=== PATIENT | female | born 1955 | race Caucasian/White ===

== ENCOUNTER 2018-07-09 11:26 | Emergency (ER) | payer BC, OTHER ==
[~2018-07-09] VITALS: Ht 167.6 cm; Wt 90.7 kg
[2018-07-09 12:18] LABS: ABSOLUTE NEUTROPHILS 8.9 thou/uL (1.4-8.2); BASOPHILS 0.9 % (0.0-2.0); EOSINOPHILS 1.1 % (0.0-3.0); HEMATOCRIT 43.6 % (37.0-47.0); HEMOGLOBIN 14.8 gm/dL (12.0-15.0); LYMPHOCYTES 13.3 % (24.0-44.0); MCH 31.4 pg (26.0-34.0); MCHC 33.8 g/dL (28.0-37.0); MCV 92.8 fL (80.0-100.0); MONOCYTES 6.4 % (1.0-8.0); PLATELET COUNT 452 thou/uL (150-400); POLYS 78.3 % (36.0-66.0); RDW 15.3 % (10.5-14.5); WBC 11.4 thou/uL (4.0-11.0)
[2018-07-09 12:24] LABS: CALCIUM 9.3 mg/dL (8.5-10.1); CREATININE 0.8 mg/dL (0.6-1.0); POTASSIUM 4.3 mmol/L (3.5-5.1)
[2018-07-09 12:29] LABS: ALBUMIN 3.7 g/dL (3.4-5.0); TOTAL BILIRUBIN 0.3 mg/dL (<0.1-1.0); TOTAL PROTEIN 7.7 g/dL (6.4-8.2)
[2018-07-09] MEDS ORDERED: CLEOCIN HCL150 MG PO (13:46)
[2018-07-09] MEDS ORDERED: HYDROCODONE-AP1 EAC6 PO (13:48)
[2018-07-09] MEDS ORDERED: NEURONTIN 300300 M1 PO (13:48)
[2018-07-09 14:46] VITALS: BP 195/81
== END 2018-07-09 14:43 | disposition home or self-care (01) ==
LOC: ER 11:26
PROVIDERS: Physician Assistant
DX: T81.49XA Infection following a procedure, other surgical site, initial encounter (principal); L03.115 Cellulitis of right lower limb; F17.210 Nicotine dependence, cigarettes, uncomplicated; Y84.8 Other medical procedures as the cause of abnormal reaction of the patient, or of later complication, without mention of misadventure at the time of the procedure; Y92.89 Other specified places as the place of occurrence of the external cause

== ENCOUNTER 2018-07-10 08:30 | Inpatient (IN) | payer BC, OTHER ==
[~2018-07-10] VITALS: Ht 167.6 cm; Wt 90.7 kg
[2018-07-10] VITALS (9 sets, daily range): BP systolic 148–193; BP diastolic 69–94
--- NOTE | ~2018-07-10 | HC ---
[facility] [place] [address] CONSULTATION Name: ROSANA NAVARRO Room #: 450-P ADM IN M.R.#: [id number] Admission: 07/10/18 ������������������ Attend Phys: Kiet Pearce MD Discharge: ������������������ Date of : 53 Report #: [id number] THIS REPORT FOR: //name// CC: [facility] physician/PCP Kiet Pearce DATE OF SERVICE: 07/12/2018 HISTORY OF PRESENT ILLNESS: The patient is a 62-year-old white female with history of nonhealing right first through fourth toe ulcers. She has peripheral arterial disease. She had a right tibioperoneal trunk thrombectomy with drug-eluting stent. She is having problems with 10/10 pain. She has tried Neurontin without benefit, so Lyrica has been added. She is being monitored regarding a groin hematoma. Wound care is seeing her. She is noted to have ulcers of the toes of the right foot with consideration for surgical debridement. We are seeing her in rehabilitation medicine consultation. PAST MEDICAL HISTORY: Includes gangrenous wound with right toes and foot, tobacco abuse, lifelong tobacco smoker per report, 40 pack years, one-half pack per day. No history of alcohol abuse. She has a history of hypertension. MEDICATIONS: Please see the full medication listing, this includes vitamins, herbals, and supplements per report. ALLERGIES: No known drug allergies. HABITS: Please see the above. SOCIAL HISTORY: She lives alone. House, ranch style, no steps. Family friend is involved. She has been using a wheelchair and a ramp and has been nonambulatory for the past 4 weeks, but was independent with transfers. REVIEW OF SYSTEMS: She has severe right foot pain. No complaints of chest pain, shortness of breath, or abdominal discomfort. PHYSICAL EXAMINATION: GENERAL: The patient is a 62-year-old, overweight, white female, in no obvious distress. She is alert. VITAL SIGNS: Last recorded temperature 97.2, pulse 81, respirations 18, blood pressure 115/59. HEENT: Appeared to be benign. NEUROMUSCULOSKELETAL: Cranial nerves grossly intact. Facies are symmetric. Functional range of motion of both upper extremities with strength grade 4/5. DTRs are trace to 1. Left lower extremity with no focal calf swelling, functional range of motion, strength is grade 4+/5, DTRs are trace to 1. Right lower extremity, the right foot is dressed. She has pain with attempted [facility] [address] [address] CONSULTATION Name: ROSANA NAVARRO Room #: 450-P [facility] IN .R.#: [id number] Admission: 07/10/18 ������������������ Attend Phys: Kiet Pearce MD Discharge: ������������������ Date of : 53 Report #: [id number] movement of the right lower extremity. She has been mod assist with sit to stand transfers. Gait was 3 feet min assist with a front-wheeled walker. ASSESSMENT: A 62-year-old white female with following problems: 1. Nonhealing right first through fourth toe ulcers, status post right tibioperoneal thrombectomy with drug-eluting stent. She has severe peripheral arterial disease. 2. Functional mobility and ADL deficits. 3. Significant pain with peripheral arterial disease. 4. Tobacco abuse. PLAN: There is consideration for surgical debridement as noted. I am uncertain regarding the timing of this. Insurance will need to be checked regarding rehab therapy options. We will be glad to follow along with you regarding her rehab therapy needs. ��������������������������������������������� ���������������������������������������� By: ��������������������������������������������� [id number] Deion Fairbanks MD /nt
[~2018-07-10 08:30] MED LIST: CLEOCIN HCL150 MG PO; HYDROCODONE-AP1 EAC6 PO; NEURONTIN 300300 M1 PO
--- NOTE | 2018-07-10 21:14 | NUR ---
Admitted on the floor at 1800. Patient came in from CV and IR. Admission history, education and assessment done- pt mentioned she had MRSA hr at April 2018- night nurse informed. With right foot ulcer- photo taken, wound nurse consult put in. With hematoma at Left groin- shown to night staff, no bleeding or drainage noted. Pt maintained on bed rest for 6 hours as reported. Pt with Thrombin topical prescribed which was not included in report given by IR staff- senior staff called up pharmacy and asked about medication, as per pharmacy staff medication already given at previous unit. Patient kept comfortable. Patient belongings at bedside, visited by relative.
[2018-07-11] VITALS: BP 171/72
--- NOTE | 2018-07-11 03:34 | NUR ---
CARE ASSUMED AT 1900, PATIENT WAS ON SPINE POSITION UNTIL AROUND 10PM.PATIENT HAS LLE HEMATOMA. PAIN CONTROLLED THIS SHIFT. PATIENT HAS SEVERAL WOUNDS ON RIGHT FOOT, CLEANSED WITH NS AND COVER WITH KEFLIX. PATIENT HAS BEEN HAVING HIGH BLOOD PRESSURE CLONIDINE GIVEN PER ORDER. PULSES CHECK Q 3,PULSES PRESENT ON LLE. PATIENT HAD PAIN MEDS X3. PATIENT ASLEEP NO S/S OF PAIN OR DISCOMFORT. GROIN SITE DRESSING IS C/D/I. PATIENT IN BED ASLEEP AT THIS TIME BREATHING REGULAR AND UNLABOURED.
[2018-07-11 03:40] VITALS: BP 122/58; BP 170/73
[2018-07-11 05:58] VITALS: BP 132/62
[2018-07-11 06:59] LABS: ABSOLUTE NEUTROPHILS 11.1 thou/uL (1.4-8.2); BASOPHILS 0.4 % (0.0-2.0); EOSINOPHILS 0.9 % (0.0-3.0); HEMATOCRIT 37.6 % (37.0-47.0); MCH 30.8 pg (26.0-34.0); MCHC 33.5 g/dL (28.0-37.0); MCV 92.2 fL (80.0-100.0); MONOCYTES 6.7 % (1.0-8.0); PLATELET COUNT 418 thou/uL (150-400); RBC 4.08 mil/uL (4.20-5.00); RDW 15.4 % (10.5-14.5); WBC 13.5 thou/uL (4.0-11.0)
[2018-07-11 07:08] LABS: APTT 30.3 Seconds (24.5-32.8); PROTIME 10.8 Seconds (9.3-11.4)
[2018-07-11 07:09] LABS: ALBUMIN 3.1 g/dL (3.4-5.0); CALCIUM 8.8 mg/dL (8.5-10.1); CREATININE 0.7 mg/dL (0.6-1.0); MAGNESIUM 1.8 mg/dL (1.8-2.4); POTASSIUM 3.9 mmol/L (3.5-5.1); TOTAL BILIRUBIN 0.7 mg/dL (<0.1-1.0); TOTAL PROTEIN 6.4 g/dL (6.4-8.2)
[2018-07-11 07:13] LABS: HEMOGLOBIN 12.6 gm/dL (12.0-15.0)
[2018-07-11 07:33] VITALS: BP 138/72
--- NOTE | 2018-07-11 12:51 | NUR ---
Assess due to notification of wound. Pt with vascular wounds to toes and also hematoma to left extremity. +tobacco use. Meds reviewed. Obesity with BMI 33. Has heart healthy diet order. Pt was not in room at time of visit. Will followup again in 1-2 days to further assess.
--- NOTE | 2018-07-11 12:59 | NUR ---
WOUND CARE CONSULT; ROUNDING WITH DR AUSTIN AND OLAF DANCE ENTERTAINER TODAY. RIGHT FOOT AND TOES JOSHUA S/S OF ISCHEMIA.PAINFUL, PALE,DUSKY DRAINING, DENUDED TISSUE. STUDIES TO LOOK FOR OSTEOMYLITIS IS ORDERED. PATIENT AND FAMILY ARE WORRIED AND EMOTIONA. RECOMMENDATIONS; DAKINS SOAKED GAUZE, SECURE WITH KERLIX DAILY/PRN. DISCUSSED WITH RN
--- NOTE | 2018-07-11 14:13 | NUR ---
PT ADMITTED RELATED TO NON-HEALING WOUNDS RT TOES. CM REVIEWED CHART AND SPOKE WITH CARE TEAM. CM MET WITH PT AND FRIEND AT BEDSIDE. PT IS A&O X4. CM ROLE INTRODUCED. PT INDICATED SHE LIVES ALONE IN A HOUSE WITH A RAMP TO ENTER AND NO STEPS INSIDE. PT INDICATED SHE HAD BEEN USING A WHEELCHAIR AND CRUTCHES TO ASSIST WITH MOBILITY MANAGER STRATEGY & ACCOUNT. SHE INDICATED NO HH HX. PT ALSO INDICATED NO PCP. CM TO PROVIDE SAFTEY NET CLINIC PACKET AND LIST OF PCPS AT [facility]. CM PROVIDED INFO ON 5N AND SKILLED REHAB IN THE EVENT POST ACUTE CARE STAY IS RECOMMENDED. CM TO FOLLOW INDICATED WITH DC PLANNING.
[2018-07-11 14:27] VITALS: BP 130/68
--- NOTE | 2018-07-11 16:02 | NUR ---
Received awake on bed. Due medications given as prescribed. Pt had MRI of R foot, Left groin ultrasound. Assisted in ADLs. Pt seen by wound nurse today, wound dressing at right foot changed. Complained of nausea, medication given as prescribed. Injection site checked, dry, intact, no further enlargement on size. Constantly complained of pain, medication given as prescribed with partial pain relief.
[2018-07-11 18:58] VITALS: BP 150/69
--- NOTE | 2018-07-11 23:26 | NUR ---
Assumed care at 1845. Pt resting in bed. AOX4. VSS. Ulcer right to foot. Dressed with darkins soaked gauze and secured with Kerlix. Dressing changes Daily/PRN. Pt denies nausea. No changes on site of hematoma. No identified needs at the moment. Will continue to monitor.
[2018-07-12 05:53] LABS: HEMATOCRIT 37.6 % (37.0-47.0); HEMOGLOBIN 12.5 gm/dL (12.0-15.0); MCH 31.4 pg (26.0-34.0); MCHC 33.4 g/dL (28.0-37.0); MCV 94.1 fL (80.0-100.0); RBC 3.99 mil/uL (4.20-5.00); RDW 15.5 % (10.5-14.5); WBC 12.6 thou/uL (4.0-11.0)
[2018-07-12 06:09] LABS: ALBUMIN 3.1 g/dL (3.4-5.0); CREATININE 1.1 mg/dL (0.6-1.0); MAGNESIUM 2.1 mg/dL (1.8-2.4); POTASSIUM 4.7 mmol/L (3.5-5.1); TOTAL BILIRUBIN 0.4 mg/dL (<0.1-1.0); TOTAL PROTEIN 6.9 g/dL (6.4-8.2)
--- NOTE | 2018-07-12 08:00 | NUR ---
PT STATED SHE HAS PAIN TO RT FOOT OF 6 ON 1-10 SCALE. PT STATED THAT THE PAIN FEELS LIKE A PRESSURE. PT UP IN CHAIR. PT HAS DRESSING TO RT FOOT THAT IS DRY AND INTACT. PT HAS EXP WHEEZE TO RLL AND LLL, DENIES ANY COUGH.
[2018-07-12 08:03] VITALS: BP 115/59
--- NOTE | 2018-07-12 08:32 | NUR ---
ADM HYDROCODONE 5MG PO FOR PAIN TO RT FOOT OF 6 ON 1-10 SCALE. PT ALSO ASKING FOR IV PAIN MED.
--- NOTE | 2018-07-12 10:07 | NUR ---
PT RECIEVED MORPHINE 2MG IV FOR PAIN TO RT FOOT.
--- NOTE | 2018-07-12 10:23 | NUR ---
Followup: eating very well, especially high protein food sources. Low nutrition risk
--- NOTE | 2018-07-12 10:55 | NUR ---
CHANGING DRESSING TO RT FOOT AFTER SOAK BUSTER DANIEL. PT STATED PAIN IS WORSE WITH DRESSING CHANGE AND OPEN TO AIR. REWRAPPED WITH TELFA, KERLEX, AND SECURED WITH TAPE. PT HAS FRIEND VISITING AT BEDSIDE.
--- NOTE | 2018-07-12 14:42 | NUR ---
ADM HYDROCODONE 5MG ONE TAB PO FOR PAIN TO RT FOOT OF 8 ON 1-10 SCALE. PT PURSE BREATHING AND SHAKING.
--- NOTE | 2018-07-12 14:51 | NUR ---
ADM MORPHINE 2MG IV FOR PAIN TO RT FOOT.
[2018-07-12 14:55] VITALS: BP 119/84
--- NOTE | 2018-07-12 14:55 | NUR ---
WOUND CARE FOLLOW UP; ROUNDING WITH DR AUSTIN AND OLAF ENERGY PROJECT ENGINEER. RIGHT FOOT ALL TOES CONTINUE TO BE MORE PAINFUL, SLOUGH AND NECROSIS PRESENT. MODERATE DRAINAGE. RECOMMENDATION; CONTINUE DAKINS ORDERED. DISCUSSED WITH RN
--- NOTE | 2018-07-12 15:08 | NUR ---
CARE TEAM TO VISIT WITH PT REGARDING POSSIBLE SURGICAL DEBRIDEMENT. PT INDICATED THAT PT WOULD BENEFIT FROM FWW FOR USE UPON DC. CM NOTIFIED PROVIDER PLUS LIAISON. CM TO FOLLOW INDIATED WITH DC PLANNING.
[2018-07-12 19:20] VITALS: BP 138/61
--- NOTE | 2018-07-12 19:49 | NUR ---
PT STILL SITTTING UP IN CHAIR. ADM MORPHINE 2MG IV FOR PAIN TO RT FOOT.
--- NOTE | 2018-07-13 04:36 | NUR ---
ASSUMED CARE OF PT AT 1900HRS. PT IS AOX4 AND CALLS FOR HELP NEEDED. PT SENT ENTIRE SHIFT ON THE RECLINER IT HELP WITH PAIN. PT REFUSED BLE TO BE ELEVATED DUE TO PAIN. PAIN WAS MANAGED WITH REST AND MEDICATION. NO OTHER S/S OF ACUTE DISTRESS. WILL CONTINUE TO MONITOR.
[2018-07-13 09:39] VITALS: BP 105/48
--- NOTE | 2018-07-13 12:21 | HC ---
[facility] [place] [address] [place] [address] CONSULTATION Name: ROSANA NAVARRO Room #: 450-P ADM IN M.R.#: [id number] Admission: 07/10/18 ������������������ Attend Phys: Kiet Pearce MD Discharge: ������������������ Date of : 53 Report #: [id number] THIS REPORT FOR: //name// CC: [facility] physician/PCP Kiet Pearce DATE OF SERVICE: 07/11/2018 CHIEF COMPLAINT: Ischemia to the right foot. HISTORY OF PRESENT ILLNESS: This is a 62-year-old female patient who has been admitted to the hospital following angiography of the lower extremity. She has had an aortogram with runoff yesterday, at which time, right posterior tibial atherectomy were completed. She has had improved flow, but had significant pain in her toes that has persisted and she has been having difficulty with healing of her toes over the last several months. She has been seen by multiple consultants, without specific improvement. PAST MEDICAL HISTORY: The patient's past medical history is positive for history of hypertension, peripheral arterial disease and nonhealing ulcers of the right second through fifth toes. SOCIAL HISTORY: Positive for half pack of cigarette smoking for 40 years. No alcohol use. FAMILY HISTORY: Noncontributory. MEDICATIONS: Include hydrocodone, gabapentin and clindamycin. ALLERGIES: None. REVIEW OF SYSTEMS: CONSTITUTIONAL: The patient denies fever, chills or weight loss. NEUROLOGIC: The patient denies focal weakness, numbness or tingling EYES: The patient denies visual changes, redness or drainage. ENT: The patient denies earache, nasal drainage or sore throat. CARDIOVASCULAR: The patient denies chest pain, palpitations or diaphoresis. PULMONARY: The patient denies cough or shortness of breath. GASTROINTESTINAL: The patient denies nausea, vomiting, diarrhea or abdominal pain. ORTHOPEDIC: The patient complains of severe pain in her right lower extremity, including in particular the toes of the right foot. Other systems in a 14-point review of systems are negative. PHYSICAL EXAMINATION: VITAL SIGNS: At this time include temperature 97.9, pulse 92, respiratory rate [facility] [address] [place] [address] CONSULTATION Name: ROSANA NAVARRO Room #: [facility]- ADM IN M.R.#: [id number] Admission: 07/10/18 ������������������ Attend Phys: Kiet Pearce MD Discharge: ������������������ Date of : 53 Report #: [id number] of 18 and blood pressure 179/86. GENERAL: This is a chronically ill-appearing female patient, who appears to be in no distress. HEENT: Head normocephalic. Nose and throat are clear. NECK: Supple. LUNGS: Clear. HEART: Regular. ABDOMEN: Soft. Bowel sounds present. EXTREMITIES: Lower extremities demonstrate the skin is pink, warm and dry, with the exception of the toes. She has ulcerations on the toes, with moist eschar involving the second through fifth toes. They are very tender to palpation. The eschar is not dry, stable and intact. NEUROLOGIC: The patient is alert, oriented, appropriate and moving all 4 extremities spontaneously. LABORATORY DATA: Includes sodium 139, potassium 3.9, chloride 103, CO2 of 25, BUN 15, creatinine 0.7 and glucose is 100. SGOT is 19. Calcium is 8.8. Total protein 6.4. Albumin 3.1. White blood cell count 12.6 with a hemoglobin of 12.5. Angiography was performed on 07/10/2018, significant for right tibioperoneal trunk atherectomy and drug-eluting stent placement. She has a single right peroneal artery runoff with moderate stenosis of the tibioperoneal trunk that was treated with angioplasty and stent placement with good patency. MRI of the right foot shows no evidence of osteomyelitis. CLINICAL IMPRESSION: 1. Arterial ulceration to second through fifth toes of the right foot, now status post percutaneous intervention with a right tibioperoneal trunk atherectomy and stent placement. 2. History of tobacco use. 3. Mild protein-calorie malnutrition. RECOMMENDATIONS: At this point in time, I have discussed with the patient in detail the need for tobacco cessation given the significant degree of arterial disease that she has. She is motivated, however, thinks it will be difficult to stop smoking. She, I think, would benefit from some debridement of her toes, possibly even with an ultrasonic Misonix type device. She is so tender to palpation at the bedside, I do not feel that I can adequately debride her at the bedside. We will consult Podiatry for consideration of debridement of the toes. It is unclear as to whether she will possess adequate flow for healing. All questions have been answered. I appreciate being asked to see her in consultation. ��������������������������������������������� <ELECTRONICALLY SIGNED> ���������������������������������������� By: Isaac Case MD ��������������������������������������������� 07/13/18 1221 [id number] Isaac Case MD /nt
--- NOTE | 2018-07-13 13:54 | NUR ---
TOWARDS POC PT A/O X4, VSS, AFEBRILE, PAIN MANAGED BY MEDS-SEE MAR. NO CONCERNS VOICED. WILL CONTINUE TO MONITOR.
[2018-07-13 15:09] VITALS: BP 119/61
[2018-07-13 19:22] VITALS: BP 155/60
[2018-07-14 03:25] VITALS: BP 153/73
--- NOTE | 2018-07-14 05:21 | NUR ---
ASSUMED CARE OF PT AT 1900HRS. PT IS AOX4 AND CALLS FOR HELP NEEDED. PT SPENT ENTIRE SHIFT ON THE RECLINER. PT REFUSED TO ELEVATE FEET. PT REPORTED SOME PAIN AND WAS TREATED WITH PRN PAIN MEDS. PT WAS PLACED NPO FROM MIDNIGHT PENDING AN I&D OF FOOT. NO OTHER S/S OF ACUTE DISTRESS. WILL CONTINUE TO MONITOR.
[2018-07-14 07:48] VITALS: BP 146/69
--- NOTE | 2018-07-14 11:33 | NUR ---
Assumed pt care at 7am.Pt up in chair resting and waiting for senior tech manufacturing engineering to pick her up.Assessment completed.vss.bp med given as ordered for preop.At 10am,pt left for surgery per bed.Martha esqueda leak detector here,order noted.Pt will be having aortogram with runoff tomorrow.Will continue to monitor.
[2018-07-14 14:04] VITALS: BP 166/70
--- NOTE | 2018-07-14 14:56 | NUR ---
WOUND CARE FOLLOW UP; ROUNDING WITH DR AUSTIN. DR AUSTIN SPENT A GREAT AMOUNT OF TIME CUNSULTING THIS PATIENT. TODAY IS S/P TOE AMPUTATION SURGERY. SURGICAL DRESSING IN PLACE. RECOMMENDATION; WAITING FOR THE SURGEON FOLLOW UP. DISCUSSED WITH SAROJ
[2018-07-14 20:06] VITALS: BP 135/61
--- NOTE | 2018-07-15 05:20 | NUR ---
ASSUMED CARE OF PT AT 1900HRS. PT IS A0X4 AND CALLS FOR HELP NEEDED. PT HAD I&D DONE PRIOR TO THIS SHIFT. PT REPORTS PAIN OF 10/10 AND WAS VERY UNCOMFORTABLE THIS SHIFT. PRESCRIBED MORPHINE AND NORCO WAS NOT ENOUGH TO GET PT COMFORTABLE. CONSIDER ALTERNATIVE PAIN MEDICATION. PROCEDURE SITE AND DRESSING IS INTACT. WILL CONTINUE TO MONITOR.
[2018-07-15 05:31] VITALS: BP 144/64
[2018-07-15 07:50] VITALS: BP 169/79
[2018-07-15 15:12] VITALS: BP 140/63
[2018-07-15 19:15] VITALS: BP 186/106
--- NOTE | 2018-07-15 19:59 | NUR ---
ASSUMED CARE OF PATIENT AT 0715, PATIENT ALERT AND ORIENTED X 4. PATIENT UP WITH SBA TO BSC, PATIENT NON-WEIGHT BEARING RIGHT FOOT. RIGHT FOOT HAS DRESSING IN PLACE AND IS C/D/I. PATIENT IN ISOLATION FOR MRSA IN NARES. PATIENT HAS HAD LOTS OF PAIN WITH RIGHT FOOT/TOES, DR PATTON NOTIFIED ABOUT PAIN RELIEF, NEW ORDER FOR DILAUDID 1 MG IV X 3, MORPHINE DISCONTINUED. PATIENT ALSO HAS HYDROCODONE 1 TABLET ORDERED, GIVEN X 1 THIS SHIFT. WILL CONTINUE TO MONITOR.
[2018-07-15 21:32] VITALS: BP 138/59
--- NOTE | 2018-07-16 01:47 | NUR ---
Assumed care at 1845. Pt resting in bed. AOX4. VSS. Gave hydralazine onetime for SBP>160. Dressing on none weight bearing right foot CDI. Pt has been using a walker and gait belt to bathroom. Still on isolation for MRSA of the nares. Pt complaining about pain still after being given pain medication. Called VISUAL ASSOCIATE who authorized onetime 2tabs of hydrocodone. Call light within reach. Chair alarm on. No identified needs at the moment. Will continue to monitor.
[2018-07-16 03:50] VITALS: BP 157/75
[2018-07-16 07:29] VITALS: BP 149/67
--- NOTE | 2018-07-16 10:08 | NUR ---
TOWARDS POC PT A/O X4, VSS,AFEBRILE. PAIN MANAGED BY MEDS. WILL CONTINUE TO MONITOR.
[2018-07-16 16:10] VITALS: BP 145/68
[2018-07-16 20:31] VITALS: BP 157/67
[2018-07-17] VITALS (9 sets, daily range): BP systolic 139–179; BP diastolic 53–79
--- NOTE | 2018-07-17 03:28 | NUR ---
ASSUMED CARE OF PT AT 1900HRS. PT AOX4 AND CALLS FOR HELP NEEDED. PT REPORTED SOME PAIN AND WAS TREATED WITH PRESCRIBED PAIN MEDS. PT WAS ABLE TOO GET SOME SLEEP THIS SHIFT. PT WAS NPO SINCE 0000HRS PENDING PROCEDURE IN THE AM. NO OTHER S/S OF ACUTE DISTRESS. WILL CONTINURE TO MONITOR.
[2018-07-17 05:23] LABS: HEMATOCRIT 35.9 % (37.0-47.0); HEMOGLOBIN 11.9 gm/dL (12.0-15.0); MCH 31.4 pg (26.0-34.0); MCHC 33.1 g/dL (28.0-37.0); MCV 94.8 fL (80.0-100.0); RBC 3.79 mil/uL (4.20-5.00); RDW 15.6 % (10.5-14.5); WBC 10.2 thou/uL (4.0-11.0)
[2018-07-17 05:43] LABS: CALCIUM 9.1 mg/dL (8.5-10.1); CREATININE 0.7 mg/dL (0.6-1.0); POTASSIUM 4.6 mmol/L (3.5-5.1); TOTAL BILIRUBIN 0.4 mg/dL (<0.1-1.0)
--- NOTE | 2018-07-17 19:37 | NUR ---
Received awake on bed. On NPO-advised patient, mouth swab given to moisten mouth. Assisted in ADLs, patient able to use walker to bathroom. With Leg dressing at Right leg- dressing dry, clean intact. Pt for OR today, Stent at R femoral artery- consent signed. Pt complained of pain, due PRN pain medication given as prescribed. A+Ox4. With bruising at L hip and thigh- no changes from previous days as handed over. Pt legs kept elevated, non weight bearing on Right leg. Maintained on Isolation- MRSA history. With SL at R FA- patent and intact. Pt fetched by OR Staff at 1130, unable to change foot dressing due to POC. Pt seen by Dr. Pearce, informed that Metoprolol given with minimal sips of H20, Aspirin and Carvedilol not given. Visited by relatives today. Patient came back to white at 1850. Pt had Angiography + stent put in thru R femoral artery under general anesthesia, pressure applied. To have bedrest for 6-8 hours- handed over to night staff, may elevate bed up to 30 degrees, no bending on site- advised pt, staff and CURER ACID DRUM. Site checked- dry, clean and intact. May have sips of water, then if tolerated may advance to regular diet- asked patient if she wanted something to eat and drink when she arrived in the unit, prefers to rest for the meantime; food tray in the room, advised pt to inform staff if she wants it heated and to eat. Pt on O2 at 3lpm via nasal cannula, sats of 98%. With new IV at L FA- patent, intact. Last pain medication given at 183 as handed over- Night staff informed. Initial vital signs taken- BP of 174/79 noted, PRN hydralazine given as prescribed. To monitor v/s, site, peripheral pulses-inital monitoring done upon arrival in unit to monitor every 30 mins for 3 hrs then every 3 hours as per protocol- Night staff informed.
[2018-07-18 01:09] VITALS: BP 151/58
[2018-07-18 03:24] VITALS: BP 142/53
--- NOTE | 2018-07-18 04:51 | NUR ---
Assumed care at 1845. Pt AOX4. VSS. Dressing on right foot and right groin area CDI. Pt rates pain a 10/10. Even after been given pain meds. No sign of hematoma. Pt peripheral pulses present but weak on the right leg. Both legs swollen. Pt insisted on seating on chair with legs not elevated against medical advice. No identified needs at the moment. Call light within reach. Will continue to monitor.
[2018-07-18 07:51] VITALS: BP 130/59
--- NOTE | 2018-07-18 12:06 | PATH ---
[facility] [address] [place] [address] PATHOLOGY RPT PROCEDURE Name: ROSANA NAVARRO Room #: 450-P ADM IN M.R.#: [id number] ������������������ Admission: 07/10/18 ������������������ Date of : 51 Discharge: Report #: [id number] Path Case #: [id number] [facility] Accession Number: [id number] . 01 Material submitted: . foot - RIGHT FOOT. Modifiers: right . 01 Clinical history: . Necrotic right foot . 02 Diagnosis: Skin and subcutaneous tissue, right foot, debridement: - Ulceration gangrenous necrosis and fibrinoid degeneration, consistent with debridement tissue. (IUV/db; 07/17/2018) LBQ/07/17/2018 . 02 Electronically signed: . Ruth Trujillo MD, Pathologist NPI- [id number] . 01 Gross description: . The specimen is received in formalin, labeled "Lupe, Rosana, skin and subcutaneous tissue right foot" and consists of multiple necrotic segments of green-amaral skin/tissue measuring 3.5 x 2.5 x 0.4 cm in aggregate. A passenger service representative portion is submitted in A1. (SDY; 07/14/2018) SYU/SYU . 02 Pathologist provided ICD-10: L97.519 . 02 CPT . 811651 Specimen Comment: A courtesy copy of this report has been sent to Specimen Comment: [phone], . Specimen Comment: Report sent to / DR GUZMAN Performed at: [address], [place], [place] [id number] MD Kris Herron MD Phone: [phone] Performed at: [address] [id number] MD Ruth Trujillo MD Phone: [phone]
[2018-07-18] MEDS ORDERED: LYRICA 50 MG50 MG PO (13:04)
[2018-07-18] MEDS ORDERED: ASA5UEC PO (13:04)
[2018-07-18] MEDS ORDERED: METOPROLOL SUCC25 M1 PO (13:04)
[2018-07-18] MEDS ORDERED: AUGMENTIN 875-1 EACH PO (13:04)
[2018-07-18] MEDS ORDERED: ACETAMINOPHEN325 M1 PO (13:04)
[2018-07-18] MEDS ORDERED: CLOPIDOGREL75 MG PO (13:04)
[2018-07-18] MEDS ORDERED: HYDROCODON-ACE1 EAC7 PO (13:04)
[2018-07-18 13:46] VITALS: BP 130/59
--- NOTE | 2018-07-18 13:52 | NUR ---
PT CONSULTED REGARDING MOBILITY STATUS WITH ANTICIPATED D/C TO HOME SOON. PT PROVIDED BY ARMATURE WINDER REPAIR WITH FWW AND ABLE TO PERFORM TXS FROM NORMAL HEIGHT SURFACES AND SHORT DISTANCE AMB W/FWW AT SBA LEVEL, MAINTAINING NWB RLE. PT WOULD BENEFIT FROM HOME HEALTH THERAPY SAFETY ASSESSMENT AND R LE STRETCHING/STRENGTHENING.
--- NOTE | 2018-07-18 14:16 | NUR ---
WOUND CARE FOLLOW UP; ROUNDING WITH DR AUSTIN AND OLAF RENAL DIALYSIS TECHNICIAN. PT TO D/C TODAY. WITH AQUACEL AG BETWEEN THE TOES, AND,KERLIX AND SECURE WITH EVANGELINA DAILY/PRN DISCUSSED WITH RN
[2018-07-18 14:32] VITALS: BP 130/59
--- NOTE | 2018-07-18 15:36 | NUR ---
CARE TEAM INDIATED THAT PT IS MEDICALLY STABLE TO DC TO SNF THIS DAY. CM FOLLOWED UP WITH PT SNF LIST HAVE BEEN PROVIDED PREVIOUSLY TO INQUIRE TO WHICH FACILITIES SHE WAS INTERESTED IN. PT INDICATED THAT SHE DIDNT' WANT TO GO SKILLED THAT SHE WANTED TO GO HOME. CM INDICATED THAT CARE TEAM WAS RECOMMENDING POST ACUTE CARE STAY FOR CONTINUED WOUND CARE, ABX, AND REHAB. SHE INDICATED SHE WANTED TO DO THOSE THINGS AT HOME. CM EXPLAINED THAT INTENSITY OF THEAPY AND HIGHER LEVEL OF MEDICAL OVERSIGHT COULD BE PROVIDED AT [facility]. PT INDICATED SHE STILL WANTED TO DC HOME. PHYSICAIN INDICATED PT COULD DC HOME WITH HOME HEALTH. PT INDICATED NO PREFERENCE IN HH PROVIDER CM SENT REFERRAL TO [facility]. THEY ARE ABLE TO ACCEPT PT. CM ORDERED PT A FWW THROUGH PROVIDER PLUS. PT WAS PERSCRIBED ORAL ABX. PT IS TO DISCHARGE HOME TODAY WITH [facility] AND [facility]. PT IS TO BE TRANSPORTED VIA FRIEND. NO OTHER CM INTERVENTION INDICATED AT THIS TIME. CASE CLOSED.
--- NOTE | 2018-07-18 16:04 | NUR ---
ASSUMED CARE 0700. ALERTX4, PAIN MANAGED WITH MEDICATIONS, ABLE TO MAKE NEEDS KNOWN. WOUND CARE PROVIDED BY WOUND NURSE. ON FALL PRECAUTIONS. DISCHARGE HOME WITH HOME HEALTH. IV REMOVED AND DC PAPERS INCLUDING MED SCRIPTS GIVEN TO PATIENT.
== END 2018-07-18 17:02 | disposition home health service (06) | DRG 271 ==
LOC: SPEC 08:30 → 4W 18:15 → ENTRNSPT 07-18 15:38 → 4W 07-18 17:02
PROVIDERS: Internal Medicine; Nurse Practitioner; Nurse Practitioner Family; ADMIT Internal Medicine
DX: I73.9 Peripheral vascular disease, unspecified (principal); E44.1 Mild protein-calorie malnutrition; I10 Essential (primary) hypertension; L97.519 Non-pressure chronic ulcer of other part of right foot with unspecified severity; F17.210 Nicotine dependence, cigarettes, uncomplicated; S30.1XXA Contusion of abdominal wall, initial encounter; Z60.2 Problems related to living alone; G62.9 Polyneuropathy, unspecified; L03.031 Cellulitis of right toe; M60.9 Myositis, unspecified; Z91.19 Patient's noncompliance with other medical treatment and regimen; Z79.82 Long term (current) use of aspirin; Z79.899 Other long term (current) drug therapy; Z68.32 Body mass index [BMI] 32.0-32.9, adult; Z71.6 Tobacco abuse counseling; X58.XXXA Exposure to other specified factors, initial encounter; Y93.89 Activity, other specified; Y92.89 Other specified places as the place of occurrence of the external cause; Y99.8 Other external cause status
CPT/HCPCS: 10047; 50010; 50101; 50386; 57091; 57119; 57120; 62110; 62900; 70005

== ENCOUNTER → 2018-07-26 | Outpatient (CLI) | payer BC, OTHER ==
[~2018-07-26] MED LIST changes: +ACETAMINOPHEN325 M1 PO; +ASA5UEC PO; +AUGMENTIN 875-1 EACH PO; +CLOPIDOGREL75 MG PO; +HYDROCODON-ACE1 EAC7 PO; +LYRICA 50 MG50 MG PO; +METOPROLOL SUCC25 M1 PO
== END ==
LOC: HYPER 07-24 10:12
DX: I70.235 Atherosclerosis of native arteries of right leg with ulceration of other part of foot (principal); L97.512 Non-pressure chronic ulcer of other part of right foot with fat layer exposed; L97.812 Non-pressure chronic ulcer of other part of right lower leg with fat layer exposed; M60.076 Infective myositis, right toe(s); I10 Essential (primary) hypertension; E44.1 Mild protein-calorie malnutrition; F17.200 Nicotine dependence, unspecified, uncomplicated

== ENCOUNTER 2018-08-01 18:11 | Inpatient (IN) | payer BC, OTHER ==
[~2018-08-01] VITALS: Ht 167.6 cm; Wt 90.7 kg
[2018-08-01 18:18] VITALS: BP 175/86
[2018-08-01 18:46] LABS: ABSOLUTE NEUTROPHILS 10.7 thou/uL (1.4-8.2); BASOPHILS 0.7 % (0.0-2.0); EOSINOPHILS 2.2 % (0.0-3.0); HEMATOCRIT 39.2 % (37.0-47.0); MCH 31.4 pg (26.0-34.0); MCHC 33.2 g/dL (28.0-37.0); MCV 94.5 fL (80.0-100.0); MONOCYTES 5.5 % (1.0-8.0); PLATELET COUNT 560 thou/uL (150-400); POLYS 78.6 % (36.0-66.0); RBC 4.15 mil/uL (4.20-5.00); RDW 15.8 % (10.5-14.5); WBC 13.6 thou/uL (4.0-11.0)
[2018-08-01 18:53] LABS: CALCIUM 9.3 mg/dL (8.5-10.1); CREATININE 0.8 mg/dL (0.6-1.0); POTASSIUM 4.2 mmol/L (3.5-5.1)
[2018-08-01 18:58] LABS: ALBUMIN 3.4 g/dL (3.4-5.0); TOTAL BILIRUBIN 0.3 mg/dL (<0.1-1.0); TOTAL PROTEIN 7.6 g/dL (6.4-8.2)
[2018-08-01 20:07] VITALS: BP 175/86
[2018-08-01 20:30] VITALS: BP 117/74
[2018-08-01 21:25] VITALS: BP 150/72
[2018-08-01 22:54] VITALS: BP 128/60
[2018-08-02 00:30] VITALS: BP 156/63
[2018-08-02 03:14] LABS: HEMATOCRIT 37.1 % (37.0-47.0); HEMOGLOBIN 12.2 gm/dL (12.0-15.0); MCHC 32.9 g/dL (28.0-37.0); MCV 94.4 fL (80.0-100.0); RBC 3.93 mil/uL (4.20-5.00); WBC 10.4 thou/uL (4.0-11.0)
[2018-08-02 03:23] LABS: CALCIUM 8.4 mg/dL (8.5-10.1); CREATININE 0.8 mg/dL (0.6-1.0); POTASSIUM 3.9 mmol/L (3.5-5.1)
--- NOTE | 2018-08-02 04:09 | NUR ---
PT. ARRIVED TO FLOOR AT 1925; PT. AOX4; C/O PAIN OVER R. FEET; 08/16; PRN IV PAIN MEDICATION GIVEN; EDUCATED ABOUT PAIN MANAGEMENT; ST. UNDERSTANDING; ADMISSION PERFORMED; REQUESTED TO SLEEP OVER CHAIR; EDUCATED ABOUT FALL PREVENTION; ST. UNDERSTANDING; PRN PO PAIN MEDICATIO GIVEN AT 2253; PAIN 06/16; PAIN RE-ASSESSMENT PT. SLEEPING; PER PROTOCOL; PT. ON ISOLATION DUE TO HISTORY OF MRSA BACK ON APRIL/2018; STORE GROCERY MERCHANDISER NOTIFIED; ABLE TO REST AFTER MIDNIGHT WITH EYES CLOSE; MONITORING; ASSESSMENT CHARGED; FOLLOWING POC; WILL PASS ON REPORT.
[2018-08-02 04:43] VITALS: BP 147/68
[2018-08-02 07:38] VITALS: BP 155/62
--- NOTE | 2018-08-02 15:23 | NUR ---
aAssumed pt care this am, pt was on the recliner and was is pain mid morning. Pain medication given, seen by [facility] care team, pain medication changed to dilaudid and has better releif for the pt. Isolation maintained for MRSA , POC followed. Consent signed for 08/04 at 8 am for right BKA. Diet changed from NPO to regular. Pain is managed with mediacation as indicated in the emar.
--- NOTE | 2018-08-02 15:35 | NUR ---
Nutrition: pt admitted with cellulitis right toes/foot/leg. Hx Severe PVD, HTN. Right BKA planned on 08/04. Pt reports usual appetite is good but has been down a few days. Is very hungry now, diet order just obtained. No weight loss from usual. BMI 32, obesity class 1. Adequate nutrition/protein encouraged for healing post surgery. Follow for supplement need. Low nutrition risk.
--- NOTE | 2018-08-02 16:09 | NUR ---
met with patient who admits with cellulitis/infection of right toe. Recent hospitalization and dc from [facility]. At [facility] patient denied skilled care and dc home with care [facility]. Patient reports pain unbearable. She knew she only was to have so many visits provided with HH care she requested they take off a week as she knew she was coming to hospital. Patient has ramp,wc and walker at home. she is agreeable to amputaion that was advised prior. She lives alone but has supportive friends. She is agreeable to post acute care at [facility]. 5n following.
[2018-08-02 16:25] VITALS: BP 155/65
[2018-08-02 18:24] VITALS: BP 102/75
[2018-08-02 20:00] VITALS: BP 151/62
[2018-08-03 03:49] LABS: HEMATOCRIT 36.6 % (37.0-47.0); HEMOGLOBIN 12.1 gm/dL (12.0-15.0); MCH 31.3 pg (26.0-34.0); RBC 3.85 mil/uL (4.20-5.00); RDW 16.1 % (10.5-14.5); WBC 10.8 thou/uL (4.0-11.0)
[2018-08-03 04:05] LABS: CALCIUM 8.6 mg/dL (8.5-10.1); CREATININE 0.8 mg/dL (0.6-1.0); POTASSIUM 4.2 mmol/L (3.5-5.1)
[2018-08-03 04:31] VITALS: BP 139/50
--- NOTE | 2018-08-03 05:56 | NUR ---
ASSUME CARE 1900. PT IN CONSTANT PAIN FROM WOUNDS AND INFECTION IN RIGHT FOOT. UP WITH ASSISTANCE. ASSESSMENT CHARTED. PROGRESSING SLOWLY TOWARDS POC. PLAN IS FOR AMPUTATION SCHEDULED ON Tuesday08/04/18. PT STAYS IN PAIN CONSTANTLY. WILL CONTINUE ROVERTO MONITOR AND FOLLOW WITH POC
[2018-08-03 08:31] VITALS: BP 151/83
--- NOTE | 2018-08-03 10:14 | NUR ---
TOWARDS POC PT A/O X4, VSS, AFEBRILE. PAIN MANAGE BY MEDS. PT REFUSED WOUND DRESSING. ANTIPATING SURGERY IN AM. WILL CONTINUE TO MONITOR.
[2018-08-03 12:22] VITALS: BP 149/58
--- NOTE | 2018-08-03 12:48 | HC ---
[facility] [place] [address] CONSULTATION Name: ROSANA NAVARRO Room #: 211-P ADM IN M.R.#: [id number] Admission: 08/01/18 ������������������ Attend Phys: Pancho Montilla MD Discharge: ������������������ Date of : 51 Report #: [id number] THIS REPORT FOR: //name// CC: [facility] physician/PCP Pancho Montilla CHIEF COMPLAINT: Cellulitis and gangrenous wound, right foot. HISTORY OF PRESENT ILLNESS: This 62-year-old female states that she has chronic vascular disease and is a moderately heavy smoker. She has had progressive problems with gangrenous toes on the right foot over the past several months. I believe she has tried conservative management with wound care and has also had a vascular procedure for vascularization of the extremity. Unfortunately, this has not resulted in improvement and she has several toes, which are clearly necrotic and require amputation. She also has moderate generalized edema of the foot with some degree of cellulitis. She and other doctors have discussed these issues at some length and she is anxious now to go ahead with below-knee amputation hoping she can come to a satisfactory and final resolution. At the time of my evaluation, she is alert and oriented. She seems to understand the situation quite well. We have discussed her symptoms, which include moderate pain and persistent swelling. She notes she has tried as best she can to manage the wounds, but is unsuccessful in achieving good wound healing. She notes she does smoke about one-half pack per day and has had no success in trying to eliminate her smoking habit. OBJECTIVE: The right foot is mildly edematous and there is mild redness about the forefoot consistent with some cellulitis. There is less significant edema at the ankle and lower leg region. Sensation at that level seems to be good. She has poor sensation at the forefoot. Several toes are obviously necrotic and would require amputation. She seems to have satisfactory movement and comfort at the knee. The opposite left foot reveals satisfactory perfusion and the toes appear to be stable. In summary, I think she does have vascular disease with obvious gangrenous involvement of several toes on the right foot. She has tried vascular procedures and other conservative measures without benefit. Therefore, I think it is reasonable to go ahead with plans for amputation. We have discussed the possibility of amputating the toes or at the forefoot level. I think it is unlikely this would heal in acceptably given her poor vascular supply. Therefore, I think a below-knee amputation is indeed probably the best approach. I believe she has already had this discussion with her vascular surgeon and with Dr. Chaudhry from wound care. She is hoping we can press ahead as quickly as possible as she feels this is the only reasonable option and wants to press ahead in this fashion. Given her wishes and the clinical findings, I think a right below-knee [address] [address] CONSULTATION Name: ROSANA NAVARRO Room #: 211-P ADM IN M.R.#: [id number] Admission: 08/01/18 ������������������ Attend Phys: Pancho Montilla MD Discharge: ������������������ Date of : 53 Report #: [id number] amputation is reasonable and appropriate. Pending OR scheduling, we may be able to proceed with surgery on 08/04. We will plan for surgery early that morning if possible. ��������������������������������������������� <ELECTRONICALLY SIGNED> ���������������������������������������� By: Deion Rocha MD ��������������������������������������������� 08/03/18 1248 1453 2319 Deion Rocha MD /nt
--- NOTE | 2018-08-03 14:26 | HC ---
[facility] [place] [address] CONSULTATION Name: ROSANA NAVARRO Room #: 211-P ADM IN M.R.#: [id number] Admission: 08/01/18 ������������������ Attend Phys: Pancho Montilla MD Discharge: ������������������ Date of : 51 Report #: [id number] THIS REPORT FOR: //name// CC: [facility] physician/PCP Pancho Montilla DATE OF SERVICE: 08/02/2018 WOUND CARE CONSULTATION PERSONAL PHYSICIAN: Dr. Kiet Pearce. CHIEF COMPLAINT: Gangrenous right toes with severe peripheral arterial disease. HISTORY OF PRESENT ILLNESS: This is a 62-year-old white female with history of severe peripheral arterial disease, status post stenting of the right lower extremity, who has failed aggressive outpatient treatment for the gangrenous toes on her right foot. They have not become infected and due to severe pain, the patient is being admitted for evaluation for kltvf-spj-izdm amputation. The patient has been told in the past that she most likely would need this and initially had refused. The patient now is accepting of the fact that she wants to proceed with vswcl-zqp-pjqz amputation. The patient still complains of severe pain associated with the toes. The patient has been followed in the outpatient wound clinic by my partner, Dr. Case. The patient denies any other new wounds at this time. The patient still complains of severe pain associated with necrosis. PAST MEDICAL HISTORY: Significant for Severe peripheral arterial disease, status post stenting, chronic tobacco use, hypertension. CURRENT MEDICATIONS: Include Plavix, metoprolol, aspirin, hydrocodone, Lyrica, Augmentin. DRUG ALLERGIES: None. SOCIAL HISTORY: The patient smokes 1 pack of cigarettes daily. Denies alcohol use. Lives independently. FAMILY HISTORY: Not pertinent to current medical condition. REVIEW OF SYSTEMS: CONSTITUTIONAL: The patient denies fever or chills. NEUROLOGIC: The patient complains of a numbness sensation in her right foot and toes. Denies weakness in her arms or legs. EYES: No complaints. ENT: No complaints. [facility] [address] [place] [address] CONSULTATION Name: ROSANA NAVARRO Room #: [address] [place] [address] IN M.R.#: [id number] Admission: 08/01/18 ������������������ Attend Phys: Pancho Montilla MD Discharge: ������������������ Date of : 51 Report #: [id number] CARDIAC: The patient denies chest pain, palpitations or peripheral edema. RESPIRATORY: The patient denies shortness breath, cough or wheezes. GASTROINTESTINAL: The patient denies nausea, vomiting or abdominal pain. GENITOURINARY: The patient denies urgency or frequency. MUSCULOSKELETAL: No complaints. SKIN: The patient has necrotic toes on the right foot. PHYSICAL EXAMINATION: VITAL SIGNS: Temp 36.9, pulse 82, respirations 16, BP 151/83. GENERAL: This is an alert and oriented x 3 pleasant white female who is in marked to severe distress secondary to pain. The patient is actually shaking at the bedside in a chair because of the pain. HEENT: Normocephalic, atraumatic. Mucous membranes are dry. Pupils are round. Sclerae white. NECK: Supple, without JVD. LUNGS: Clear. HEART: Regular. ABDOMEN: Soft, nontender. EXTREMITIES: The patient moves all extremities without difficulty. Evaluation of right foot reveals necrotic toes with gangrenous ulcers to multiple toes on the right foot. There is a faint dorsalis pedis. No posterior tibial pulse. There is no associated ulceration noted on the left foot. NEUROLOGIC: Cranial nerves 2-12 are grossly intact. Motor and sensory grossly intact. LABORATORY VALUES: White count 10.4, hemoglobin 12.2, albumin 3.4. IMPRESSION: 1. Gangrenous ulcerations of multiple right toes. 2. Severe peripheral arterial disease, status post stenting. 3. Hypertension. 4. History of chronic tobacco abuse. 5. Protein-calorie malnutrition -- mild. Albumin 3.4. PLAN: We will put Xeroform between the toes, secure it lightly with Kerlix. We will have this changed daily pending iezkw-lde-phvq amputation per Ortho. We will maximize her protein supplementation for healing. Once the patient is able, we will make sure we utilize Physical and Occupational Therapy for strengthening and continue all other current medications. I appreciate the ability to consult. We will continue to follow the patient. ��������������������������������������������� <ELECTRONICALLY SIGNED> ���������������������������������������� By: Jeanmarie Chaudhry MD ��������������������������������������������� 08/03/18 1426 0933 1239 Jeanmarie Chaudhry MD /nt
[2018-08-03 20:37] VITALS: BP 151/74
[2018-08-04] VITALS (11 sets, daily range): BP systolic 129–176; BP diastolic 48–84
--- NOTE | 2018-08-04 03:23 | NUR ---
ASSUME CARE 1900. PT CONSTANTLY COMPLAINING OF PAIN IN RIGHT FOOT. TOLERATES ACTIVITY MODERATELY. ASSESSMENT CHARTED. PROGRESSING WELL WITH POC. PLAN IS FOR POSSIBLE bka TODAY. NPO SINCE MIDNIGHT. WILL CONSENT SIHNED AND PLACED IN CHARTE. WILL CONTINUE TO MONITOR SND FOLLOW WITH POC
--- NOTE | 2018-08-04 09:07 | NUR ---
PT ALERT AND ORIENTED X4. SITTING IN CHAIR THIS AM. COMPLAINING OF RIGHT FOOT PAIN. PLAN FOR SURGERY THIS AM. CONSENT SIGNED. TO SURGERY AT 0745. PT'S FRIENDS WITH HER ON TRANSFER TO PRE.
--- NOTE | 2018-08-04 12:04 | NUR ---
Pt went to the OR this morning for BKA surgery. Therapy and 5N acute rehab to assess postop. Will follow.
--- NOTE | 2018-08-04 15:37 | NUR ---
PT RETURNED FROM OR 1150. SCREAMING, MOANING IN PAIN. DILAUDID GIVEN WITH NO PAIN RELIEF. DR LANGFORD PAGED. DILAUDID DOSE INCREASED PER ORDER AND PT REPORTS PAIN RELIEF. PT UP TO CHAIR, STATES SHE IS MUCH MORE COMFORTABLE IN CHAIR. VSS. TOLERATING SIPS OF CLEAR LIQUIDS. PT'S FRIEND/AUTHORIZED CONTACT AT BEDSIDE POST OP AND UPDATED. WILL CONTINUE TO MONITOR PATIENT.
--- NOTE | 2018-08-04 16:31 | NUR ---
PATIENT WITH BKA THIS DATE. WILL ASSESS ON TUESDAY TO SEE IF PATIENT IS MEDICALLY STABLE AND READY FOR ACUTE REHAB ADMISSION. THANK YOU FOR THIS REFERRAL.
[2018-08-05 00:06] VITALS: BP 150/81
--- NOTE | 2018-08-05 00:35 | NUR ---
ASSUMED PT CARE 2300. PT IN CHAIR. AGREE WITH PREVIOUS NURSE ASSESSMENT. VSS. NC IN PLACE. IV DRESSING C/D/I, NO SIGNS OF INFILTRATION. PT REPORTS PAIN, SEE EMAR. DENIES N/V. CALL LIGHT WITHIN REACH, WILL CONTINUE POC UNTIL EOS.
[2018-08-05 04:54] VITALS: BP 147/62
[2018-08-05 06:19] LABS: HEMATOCRIT 32.6 % (37.0-47.0); HEMOGLOBIN 10.7 gm/dL (12.0-15.0)
[2018-08-05 07:40] VITALS: BP 168/55
--- NOTE | 2018-08-05 10:02 | NUR ---
RECEIVED PT APPROX 0700. A/O. PAIN PARTIALLY RELIEVED BY MEDS ORDERED. NO NOTED SOA. NO NV. DRESSING TO STUMP CDI. HEMOVAC INTACT. PT RESTING IN CHAIR AT THIS TIME. WILL CONT. TO MONITOR.
[2018-08-05 15:20] VITALS: BP 176/64
[2018-08-05 19:32] VITALS: BP 151/51
[2018-08-06 04:57] VITALS: BP 183/63
[2018-08-06 06:57] VITALS: BP 175/79
[2018-08-06 11:22] VITALS: BP 186/61
[2018-08-06 15:58] VITALS: BP 169/63
--- NOTE | 2018-08-06 18:03 | NUR ---
ASSUMED CARE AT 0700, SHIFT ASSESSMNET DONE, MEDS GIVEN, BP ELEVATED, PROBABLY D/T PAIN. RIGHT STUMP DRESSING CHANGE WAS PERFORMED THIS AM BY SARAH. REPORTED INTOLERABLE PAIN AFTERWARDS, ORAL AND IV PAIN MEDS ADMINISTERED WITH NO RELIEF. DR MALLOY SAW THE PT, AND STARTED ON MORE MEDS, PERCOCET 15 MG GIVEN AT 1515, ATVIAN GIVEN AT THE SAME TIME, PAIN WAS DOWN TO 5/10. AFTER DINNER, PAIN ZENA BACK UP TO 7/10, FENTANYL GIVEN. WILL BE TRANSFERRED TO [address] [place] [address]. REPORT CALLED AND GIVEN TO SAROJ LIM. WILL CONTINUE TO ASSESS AND ASSIST WITH ADLs NEEDED.
[2018-08-06 20:40] VITALS: BP 184/81
--- NOTE | 2018-08-07 02:44 | NUR ---
ASSUMED CARE AROUND 1899. AXOX3. S/P R AKA. LIMB ELEVATED. VOIDS FINE PER BC. PERSISTENT PAIN TX PER MD ORDER. NOTIFIDED HEDDLER EXTERIOR INTERIOR SPECIALIST FOR DILAUDID > 2MG. PER HEDDLER, OK TO GIVE GIVE WITHOUS REPEATDLY CALLING. NOTED. NO S/S ACUTE DISTRESS NOTED OR REPORTED AT THIS TIME. WILL CONT TO MONITOR FOR ANY CHANGES IN CONDITION.
[2018-08-07 05:43] LABS: MCH 31.5 pg (26.0-34.0); MCHC 33.5 g/dL (28.0-37.0); RBC 2.87 mil/uL (4.20-5.00); RDW 15.4 % (10.5-14.5); WBC 8.8 thou/uL (4.0-11.0)
[2018-08-07 05:54] LABS: CALCIUM 8.3 mg/dL (8.5-10.1); CREATININE 0.6 mg/dL (0.6-1.0); MAGNESIUM 1.8 mg/dL (1.8-2.4); POTASSIUM 3.5 mmol/L (3.5-5.1)
[2018-08-07 07:27] VITALS: BP 170/73
--- NOTE | 2018-08-07 11:16 | O ---
[facility] [place] [address] OPERATIVE REPORT Name: ROSANA NAVARRO Room #: 462-P ADM IN M.R.#: [id number] Admission: 08/01/18 ������������������ Attend Phys: Pancho Montilla MD Discharge: ������������������ Date of : 53 Report #: [id number] THIS REPORT FOR: //name// CC: [facility] physician/PCP Pancho Montilla DATE OF SERVICE: 08/04/2018 PREOPERATIVE DIAGNOSIS: Ischemic right foot with gangrenous toes. POSTOPERATIVE DIAGNOSIS: Ischemic right foot with gangrenous toes. PROCEDURE: Right below-knee amputation. SURGEON: Deion Rocha MD INDICATIONS: This is a 62-year-old female with severe peripheral vascular disease, has ischemic and necrotic right forefoot. She has had a stent placed to improve vascularization, but clearly is unable to heal the toe and forefoot problems. She also has some generalized edema consistent with some cellulitis in the foot and lower calf. Given these problems, we have elected to go ahead with below-knee amputation. I have explained at length to the patient and her family that she certainly is at risk for further infection or wound healing problems, even at this level. She understands and wishes to proceed. DESCRIPTION OF PROCEDURE: The patient was taken to the operating room where she was placed under general anesthesia. She has continued on her preoperative antibiotics. The right lower extremity was meticulously prepped and draped and the necrotic foot was excluded with a stockinette. A thigh tourniquet was inflated to 300 mmHg. A fishmouth-shaped skin incision was made at the mid leg. This was carried sharply down to bone and the tibia and fibula were resected. The lower leg and foot were passed off the field. The tibia was shortened slightly and the anterior edge beveled and smoothed. The fibula was also shortened somewhat to allow good soft tissue coverage. The vascular structures were identified and controlled with suture. The tourniquet was deflated. Good hemostasis was confirmed. The wound was copiously and generously irrigated. The soft tissue seemed to be adequately perfused. There was a good deal of edema in the subcutaneous tissues and a moderately thick adipose layer which made closure difficult and somewhat tenuous. Nevertheless, it seems that there is adequate soft tissue and adequate perfusion to expect likely healing at this level. A single Hemovac was left deep in the wound exiting through a separate stab incision. The fascia was then closed with multiple #1 Vicryl sutures. The fascia was reinforced with 0 Monocryl and the subcutaneous tissues were closed with 0 Monocryl. The skin was closed with skin mj. A very gently compressive sterile dressing was applied, supplemented with gently compressive [address] [address] OPERATIVE REPORT Name: ROSANA NAVARRO LUIS ENRIQUE Room #: 462-P ADM IN M.R.#: [id number] Admission: 08/01/18 ������������������ Attend Phys: Pancho Montilla MD Discharge: ������������������ Date of : 51 Report #: [id number] Delmar wrap and plaster. The patient was then awakened and returned to recovery room in satisfactory condition. ��������������������������������������������� <ELECTRONICALLY SIGNED> ���������������������������������������� By: Deion Rocha MD ��������������������������������������������� 08/07/18 1116 1042 1218 Deion Rocha MD /nt
--- NOTE | 2018-08-07 12:22 | NUR ---
TOWARDS POC PT A/O X4, VSS, AFEBRILE. NO N/V. PAIN MANAGED BY MEDS-SEE MAR. CRUZ STUMP DRESSING C/D/I. NO CONCERNS VOICED. WILL CONTINUE TO MONITOR.
--- NOTE | 2018-08-07 15:00 | NUR ---
PT IS S/P BKA Tuesday08/02/18. AUAR WAS CONSULTED FOR STUMP FIRE CHIEF'S AIDE. 5N IS FOLLOWING FOR POSSIBLE ADMISSION ONCE MEDICALLY STABLE.
[2018-08-07 15:22] VITALS: BP 153/56
[2018-08-07 20:14] VITALS: BP 188/87
[2018-08-08 04:56] LABS: HEMATOCRIT 28.9 % (37.0-47.0); HEMOGLOBIN 9.7 gm/dL (12.0-15.0); MCH 31.8 pg (26.0-34.0); MCHC 33.6 g/dL (28.0-37.0); MCV 94.8 fL (80.0-100.0); RBC 3.05 mil/uL (4.20-5.00); RDW 15.5 % (10.5-14.5); WBC 9.2 thou/uL (4.0-11.0)
[2018-08-08 04:58] LABS: CALCIUM 8.7 mg/dL (8.5-10.1); CREATININE 0.7 mg/dL (0.6-1.0); POTASSIUM 3.6 mmol/L (3.5-5.1)
--- NOTE | 2018-08-08 05:02 | NUR ---
Pt. rested quietly at intervals during the night when checked on during frequent rounds. She did c/o pain to her right lower extremity and pain meds given (see emar) with some relief noted. Dressing to right stump is dry and intact. Up in chair this am with chair alarm on.
[2018-08-08 05:16] VITALS: BP 161/64
[2018-08-08 08:04] VITALS: BP 124/64
--- NOTE | 2018-08-08 08:18 | NUR ---
AUTHORIZATION REQUEST FOR ACUTE REHAB ADMISSION SUBMITTED AUGUST 07 WITH PREFERRED CARE BLUE. AWAITING RESPONSE.
--- NOTE | 2018-08-08 12:30 | NUR ---
Rc ponce has submitted for insurance auth. Possible dc to acute rehab today pending ins approval. Nursing working on po pain mngt. Will follow.
[2018-08-08 14:20] VITALS: BP 139/56
--- NOTE | 2018-08-08 18:26 | NUR ---
ASSUMED CARE AT 0700. PT A&OX4. PT'S ONLY COMPLAINT IS PAIN TO R BKA. PT TAKING IV PAIN MEDICATION WELL PO PAIN MEDICATION. WOUND CARE CHANGED PT'S WOUND DRESSING TODAY AND LATER DRESSING WAS REMOVED BY WORKER WHO APPLIED AND FITTED THE PT FOR THE STUMP SHADOWGRAPH OPERATOR . STUMP SHADOWGRAPH OPERATOR IN PLACE. PT WAS MEDICATED PRIOR TO PHYSICAL THERAPY AND WAS ABLE TO WORK WITH THERAPY.
[2018-08-08 20:05] VITALS: BP 157/73
[2018-08-09 04:10] VITALS: BP 164/62
--- NOTE | 2018-08-09 04:53 | NUR ---
Pt. rested quietly at intervals during the night when checked on during frequent rounds. She was given pain meds (see emar) for c/o right lower phantom pain with some relief noted. Dressing to right stum is intact. Chair alarm is on.
[2018-08-09 05:24] LABS: HEMATOCRIT 29.3 % (37.0-47.0); HEMOGLOBIN 9.7 gm/dL (12.0-15.0); MCH 31.4 pg (26.0-34.0); MCHC 33.2 g/dL (28.0-37.0); MCV 94.5 fL (80.0-100.0); RBC 3.1 mil/uL (4.20-5.00); RDW 15.3 % (10.5-14.5); WBC 9.9 thou/uL (4.0-11.0)
[2018-08-09 05:35] LABS: CALCIUM 8.6 mg/dL (8.5-10.1); CREATININE 0.7 mg/dL (0.6-1.0); MAGNESIUM 2.1 mg/dL (1.8-2.4)
[2018-08-09 08:12] VITALS: BP 175/66
--- NOTE | 2018-08-09 09:24 | NUR ---
Nutrition: pt S/P Right BKA due to PVD wounds to LE. Appetite fair, eating 50-75% of meals. Reviewed meal ordering as desired and obtained food preferences. Discussed increased nutrition/protein needs for healing. Pt agreeable to try ensure BID. No weight since 08/01. Pt is low nutrition risk.
--- NOTE | 2018-08-09 11:31 | NUR ---
TOWARDS POC PT A/O X4, VSS, AFEBRILE. NO SOA, NO NV. PAIN MANAGED BY MEDS. STUMP RIB STIFFENER AND HEEL DIPPER IN PLACE. WOUND DRESSING C/D/I. NO CONCERNS VOICED. ANTICIPATING DC TO 5N.
[2018-08-09] MEDS ORDERED: ASPIR 8181 MG PO (13:05)
[2018-08-09] MEDS ORDERED: OXYCODONE-APAP1 EAC6 PO (13:05)
[2018-08-09] MEDS ORDERED: TYLENOL325 MG PO (13:05)
[2018-08-09] MEDS ORDERED: NEURONTIN 300300 M1 PO (13:06)
[2018-08-09] MEDS ORDERED: LORAZEPAM 1 MG T1 M1 PO (13:06)
[2018-08-09 15:22] VITALS: BP 164/47
--- NOTE | 2018-08-09 16:03 | NUR ---
CARE TEAM INDICATED THAT PT IS MEDICALLY STABLE TO DC TO [facility] ACUTE INPATIENT REHAB THIS DAY. PT IS AWARE AND AGREEABL. CM TO FOLLOW INDICATED WITH DC PLANNING.
--- NOTE | 2018-08-09 16:06 | PATH ---
[facility] [address] [place] [address] PATHOLOGY RPT PROCEDURE Name: ROSANA NAVARRO Room #: 462-P ADM IN M.R.#: [id number] ������������������ Admission: 08/01/18 ������������������ Date of : 51 Discharge: Report #: [id number] Path Case #: [id number] [facility] Accession Number: [id number] . 01 Material submitted: . leg - RIGHT LOWER LEG. Modifiers: right, lower . 01 Clinical history: . Gangrene . 02 Diagnosis: Leg, right lower leg, below the knee amputation: - Skin and subcutaneous tissue showing extensive ulceration, gangrenous necrosis and fibrinoid degeneration. - Anterior and posterior tibial vasculature showing moderate luminal narrowing. - Skin and soft tissue margin viable. - Bone margin grossly viable and unremarkable. (IUV:miguel; 08/09/2018) MBR/08/09/2018 . 02 Electronically signed: . Ruth Trujillo MD, Pathologist NPI- [id number] . 01 Gross description: . The specimen is received fresh in a red biohazard bag, labeled "Rosana Navarro, right lower leg". Received is a right zxxry-pzi-anie amputation measuring 23.6 cm from heel to toe, 17.3 cm from heel to skin margin, 31.3 cm from heel to fibular margin, and 32.1 cm from heel to tibial margin. The skin and soft tissue margins are viable. All five toes are present. Toes 2 through 4 are predominantly light amaral to dark brown and focally crusted on the dorsal aspects. The nails on these toes are absent. The nails on the remainder of the toes are pale amaral and slightly thickened in appearance. On the medial aspect of the great toe, there is a circumscribed, irregular in contour and light amaral to pink-amaral necrotic-appearing lesion measuring 2.0 x 1.3 cm. 3.2 cm proximal to this lesion, there is a second lesion which is well-circumscribed, irregular in contour and pink-purple measuring 1.3 x 0.6 cm. On the lateral aspect of toe 5, there is a fluid-filled to verrucoid-appearing lesion present partially filled with blood-tinged fluid measuring 3.0 x 1.5 cm. The anterior and posterior tibial vasculatures display patent lumens. The specimen is submitted cash application representative as well as: . A1 skin and soft tissue margins A2 distal most lesion on medial aspect of great toe A3 lesion proximal to distal most lesion on medial aspect of great toe [address] [address] PATHOLOGY RPT PROCEDURE Name: ROSANA NAVARRO Room #: 462-P ADM IN M.R.#: [id number] ������������������ Admission: 08/01/18 ������������������ Date of : 51 Discharge: Report #: [id number] Path Case #: [id number] A4 cash application representative section of lesion on lateral aspect of toe 5 A5 cash application representative sections from each lesion overlying toes 2 through 4 A6 anterior tibial vasculature A7 posterior tibial vasculature. (CAA; 08/08/2018) QAC/QAC . 02 Pathologist provided ICD-10: L98.499, I96 . 02 CPT . 729324 Specimen Comment: A courtesy copy of this report has been sent to Specimen Comment: [phone], . Specimen Comment: Report sent to / DR GUZMAN Performed at: 01 [facility] [address] [place] [address], [place] [id number] MD Kris Herron MD Phone: [phone] Performed at: [address] [facility] [id number] MD Ruth Trujillo MD Phone: [phone]
--- NOTE | 2018-08-11 10:01 | HC ---
[facility] [place] [address] [place] [address] CONSULTATION Name: ROSANA NAVARRO Room #: 462-P [facility] IN M.R.#: [id number] Admission: 08/01/18 ������������������ Attend Phys: Pancho Montilla MD Discharge: 08/09/18 ������������������ Date of : 53 Report #: [id number] THIS REPORT FOR: //name// CC: [facility] physician/PCP Pancho Montilla DATE OF SERVICE: 08/03/2018 HISTORY OF PRESENT ILLNESS: The patient is a 62-year-old white female previously known to me who has a history of nonhealing right first through fourth toe ulcers, had a prior right tibioperoneal thrombectomy with drug-eluting stent for severe peripheral arterial disease. She is noted to have nonhealing infected ulcers, developed cellulitis attempting to go home, but now has been readmitted back and the plan is to undergo a below-knee amputation tomorrow. She has severe peripheral vascular disease. We are seeing her in rehabilitation medicine consultation. PAST MEDICAL HISTORY: Includes the peripheral vascular disease, lifelong tobacco smoker per report [id number], one-half pack per day, and history of hypertension. ALLERGIES: No known drug allergies. MEDICATIONS: Please see the full medication listing. This includes vitamins, herbals, and supplements. SOCIAL HISTORY: Lives alone. House, ranch style. No steps. There are family friends that are involved which are her best friend and the best friend's . They live 2 blocks away on her. She has a neighbor that looks in on her as well. She has been using a walker/wheelchair to get around premorbidly. She does have a ramp into her house and she notes she has not been putting weight on that right lower extremity. REVIEW OF SYSTEMS: Severe right foot pain. No complaints of chest pain, shortness of breath, or abdominal discomfort. PHYSICAL EXAMINATION: GENERAL: A 62-year-old overweight white female, in no obvious distress. VITAL SIGNS: Last recorded temperature 98.6, pulse 80, respirations 16, blood pressure is 149/58. She is alert. HEENT: Appeared to be benign. NEUROLOGIC: Cranial nerves are grossly intact. Facies are symmetric. Functional range of motion of both upper extremities. Strength is grade 4-/5. DTRs are trace to 1. Left lower extremity functional range of motion, strength is grade 4-/5. DTRs are trace to 1. Right foot reveals erythema with significant pain with movement. Proximally, she is able [place] [address] CONSULTATION Name: ROSANA NAVARRO Room #: 462-[facility] IN M.R.#: [id number] Admission: 08/01/18 ������������������ Attend Phys: Pancho Montilla MD Discharge: 08/09/18 ������������������ Date of : 51 Report #: [id number] knee at least a grade 4-/5, although again she has significant discomfort with attempted movement. ASSESSMENT: 1. Nonhealing infected ulcers, right toes 1 through 4. 2. Cellulitis. 3. Peripheral arterial disease with prior stent to the superficial femoral artery. 4. Hypertension. 5. Tobacco abuse. PLAN: The patient will be undergoing a below-knee amputation tomorrow. We discussed rehabilitation issues in the aftermath. She certainly would likely benefit from a short acute in-hospital inpatient rehabilitation stay to maximize her functional independence post-amputation to enable her to return back to the home setting. She does have limited support as noted above. We will be glad to follow along with you regarding her rehab therapy issues. ��������������������������������������������� <ELECTRONICALLY SIGNED> ���������������������������������������� By: Deion Fairbanks MD ��������������������������������������������� 08/11/18 1001 1424 1716 Deion Fairbanks MD /[facility]
== END 2018-08-09 18:26 | DRG 854 ==
LOC: ER 18:11 → EROBS 19:33 → 2N 19:33 → 4W 08-06 18:31
PROVIDERS: Internal Medicine; Nurse Practitioner Family; Orthopaedic Surgery; Physician Assistant; ADMIT Hospitalist
PROC: 0Y6H0Z2 Detachment at Right Lower Leg, Mid, Open Approach (ICD-10-PCS; principal; 2018-08-04)
DX: A41.9 Sepsis, unspecified organism (principal); I96 Gangrene, not elsewhere classified; E44.1 Mild protein-calorie malnutrition; L03.031 Cellulitis of right toe; I10 Essential (primary) hypertension; L97.519 Non-pressure chronic ulcer of other part of right foot with unspecified severity; I73.9 Peripheral vascular disease, unspecified; F17.210 Nicotine dependence, cigarettes, uncomplicated; Z68.32 Body mass index [BMI] 32.0-32.9, adult; Z95.820 Peripheral vascular angioplasty status with implants and grafts; Z71.6 Tobacco abuse counseling; Z79.02 Long term (current) use of antithrombotics/antiplatelets; Z79.82 Long term (current) use of aspirin; Z79.899 Other long term (current) drug therapy
CPT/HCPCS: 10040; 10045; 10081; 50010; 50101; 50386; 51412; 53000; 56524; 56525; 56526; 56528; 57091; 57180; 62110; 62900; 70005

== ENCOUNTER 2018-08-09 09:43 | Inpatient (IN) | payer BC, OTHER ==
[~2018-08-09] VITALS: Ht 167.6 cm; Wt 90.7 kg
--- NOTE | ~2018-08-09 | PLAN ---
[facility] [place] [address] [place] [address] REHAB UNIT PLAN OF CARE Name: ROSANA NAVARRO Room #: 503-P ADM IN M.R.#: [id number] Admission: 08/09/18 ������������������ Attend Phys: Deion Fairbanks MD Discharge: ������������������ Date of : 51 Report #: [id number] THIS REPORT FOR: //name// CC: Deion Fairbanks [facility] physician/PCP DATE OF SERVICE: 08/11/2018 PROGRESS NOTE/OVERALL PLAN OF CARE SUBJECTIVE: The patient is seen back today in followup. She was in no distress. Temperature 99.5, pulse 70, respirations 18, and blood pressure 152/67. The patient is alert. Her residual limb is wrapped. She is min assist with sit to stand. Gait is min assist 20 feet with a front-wheeled walker. In occupational therapy, lower body dressing is min assist, upper body dressing is set up. She has been cooperative with the therapy program. ASSESSMENT: 1. Severe peripheral arterial disease with nonhealing infected ulcers, now status post right below-knee amputation. 2. Peripheral arterial disease with prior stenting of the superficial femoral artery. 3. Pain control postoperatively. 4. Functional mobility and ADL deficits. 5. Hypertension. 6. Tobacco abuse. PLAN: The overall plan of care is based on the preadmission screen, post-admission physician evaluation and information garnered from therapy assessments. 1. Estimated length of stay is probably 7-10 days, potentially longer if warranted. 2. Medical prognosis is reasonably good. 3. Anticipated interventions includes the interdisciplinary acute inpatient rehabilitation program. 4. Anticipated functional outcomes would be for the patient to become modified independent with transfers, mobility and ADLs at a walker level. 5. Discharge destination would be back to the home setting where she lives by herself. She does have some friends that are involved. 6. Expected therapy by discipline includes PT and OT 1-1/2 hours per day each five days a week throughout the duration of the acute inpatient rehabilitation stay. ��������������������������������������������� ���������������������������������������� By: ��������������������������������������������� 0901 1459 Deion Fairbanks MD /nt
--- NOTE | ~2018-08-09 | H ---
[facility] [place] [address] [place] [address] HISTORY AND PHYSICAL Name: ROSANA NAVARRO Room #: 503-P ADM IN M.R.#: [id number] Admission: 08/09/18 ������������������ Attend Phys: Deion Fairbanks MD Discharge: ������������������ Date of : 51 Report #: [id number] THIS REPORT FOR: //name// CC: Deion Fairbanks [facility] physician/PCP DATE OF SERVICE: 08/09/2018 HISTORY AND PHYSICAL AND POST-ADMISSION PHYSICIAN EVALUATION HISTORY OF PRESENT ILLNESS: The patient is a 62-year-old female who was originally admitted to [facility] with nonhealing right first through fourth toe ulcers, prior right peroneal thrombectomy with drug-eluting stent for severe peripheral vascular disease. She developed cellulitis, was admitted on 08/01/2018 and underwent a right below knee amputation. Her pain has been improving. She has significant functional mobility and ADL deficits compared to her premorbid status. She is being monitored regarding hypertension. She is on Plavix and aspirin for her peripheral arterial disease. She has been admitted now for acute in-hospital inpatient rehabilitation. PAST MEDICAL HISTORY: Includes peripheral vascular disease, lifelong tobacco smoker per report [id number] one-half pack per day, and history of hypertension. ALLERGIES: No known drug allergies. MEDICATIONS: Please see the full medication listing. This includes vitamins, herbals, and supplements. SOCIAL HISTORY: Lives alone, house, ranch style. No steps. She does have family friends that are involved and her best friend and her best friend's lives 2 blocks away in her closely involved. She has been using a walker or wheelchair to get around premorbidly. She does have a ramp in her house. REVIEW OF SYSTEMS: She has the pain involving the residual limb, which appears to be gradually improving. No chest pain, shortness of breath or abdominal discomfort. PHYSICAL EXAMINATION: GENERAL: A 62-year-old overweight white female in obvious distress. VITAL SIGNS: Temperature 36.8, pulse 69, respirations 22, blood pressure 149/60. The patient is alert, pleasant. She was seen earlier. HEENT: Appeared to be a reasonable historian. CHEST: Sounded clear to auscultation. CARDIOVASCULAR: Regular rate and rhythm. [facility] [address] [place] [address] HISTORY AND PHYSICAL Name: ROSANA NAVARRO Room #: [facility] ADM IN M.R.#: [id number] Admission: 08/09/18 ������������������ Attend Phys: Deion Fairbanks MD Discharge: ������������������ Date of : 51 Report #: [id number] ABDOMEN: Bowel sounds positive, nontender. GENITOURINARY AND RECTAL: Deferred. EXTREMITIES: She has functional range of motion of both upper extremities. Strength is grade 4-/5. DTRs are trace to 1. Lower extremity functional range of motion, strength is grade 4-/5. DTRs are trace to 1. She has a right below knee amputation, which is dressed. She can move that proximal right lower extremity, although she has some discomfort. ASSESSMENT: 1. Severe peripheral arterial disease with nonhealing infected ulcers and cellulitis, now status post right below-knee amputation. 2. Peripheral arterial disease with prior stenting of the superficial femoral artery. 3. Functional mobility and activities of daily living deficits. 4. Pain control postoperatively. 5. Hypertension. 6. Tobacco abuse. PLAN: The patient is admitted for acute in-hospital inpatient rehabilitation. From a postadmission physician evaluation perspective, there are no relevant changes since the preadmission screening. Please see the above review of previous and current functional status. As far as risk of complications, the patient has multiple medical comorbidities as noted above. The initial plan of care involves the interdisciplinary acute inpatient rehabilitation program with goal of maximizing her functional independence, so she can hopefully return back to her prior living situation. She does have measurable functional goals including maximizing her independence with transfers for mobility and ADLs. Also trying to work on some short distance mobility. Nonweightbearing on the right lower extremity. Prognosis is reasonably good with estimated length of stay probably 10 days depending upon her progress. She may be able to leave in 7-10 days. We will need to see how she does. Potential barriers would include her above noted medical comorbidities and decreased functional status. The patient meets diagnostic criteria for an acute in-hospital inpatient rehabilitation stay. She meets medical necessity criteria. She does have the tolerance for therapies and has appropriate discharge goals back to the home setting. ��������������������������������������������� ���������������������������������������� By: ��������������������������������������������� 1214 1241 Deion Fairbanks MD /nt
[2018-08-09] MEDS ORDERED: OXYCODONE-APAP1 EAC6 PO (13:05)
[2018-08-09] MEDS ORDERED: TYLENOL325 MG PO (13:05)
[2018-08-09] MEDS ORDERED: ASPIR 8181 MG PO (13:05)
[2018-08-09] MEDS ORDERED: LORAZEPAM 1 MG T1 M1 PO (13:06)
[2018-08-09] MEDS ORDERED: NEURONTIN 300300 M1 PO (13:06)
--- NOTE | 2018-08-09 16:12 | NUR ---
chart review, ephraim visited with pt at bedside, she up in recliner chair. going to acute rehab ashutosh pt stated " oh my friends can not bring my equip from home today"/loyd. education that will be able to use dme from 5n and then closer to dc therapy will want to see how works out for pt. intro to team meeting, hh, and transition of care. loyd reported " live alone in house, driving till month ago. have shower bench, 1 grab bar, ramp, walker, borrowing a friends wheel chair. friends help allot , cook and clean. manage own medications/ "pt. will cont following as needed for dc needs.
[2018-08-09 18:30] VITALS: BP 149/60
--- NOTE | 2018-08-09 19:54 | NUR ---
PT ADMITED TO ROOM 503 AT 1830 S/P RIGHT BKA. ALERT AND ORIENTED X4. ABLE TO VOICE HER NEEDS. VSS ON RA. LIVES HOME ALONE, HAD RIGHT FOOT INFECTION, AND AMPUTATED ON AUGUST 04, 2018. RIGHT STUMP DRESSING INTACT, PT SAID WOUND NURSE CHANGE DRESSING AND DOESN'T WANT THIS VACCINES SOLUTIONS SPECIALIST TO TAKE IT OFF. SKIN DRY APPLIED LOTION. SKIN INTACT. HAS LEFT AC SL. PT WAS ON ABT IV AND CURRENTLY NOT ON ANY ABT AND SHE BELIEVES SHE IS DONE WITH ABT. 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 REASSESSMENT PER CHART. RATES PAIN 3/10, DENIES NEED FOR PAIN. REVIEWED ADMISSION MED LIST WITH PT, FAXED MED LIST TO PHARMACY. CALLED TO NOTIFIED PRIMITIVO PATTERSON STEPHEN THAT PT IS IN ROOM 503. ASSISTED PT TO BSC HAD GOOD AMOUNT YELLOW URINE. PT HAD BM THIS AM, KIND OF LOOSE PT DESCRIBED. OFFERED SUPPORTIVE CARE. DISCUSSED ABOUT REHAB PLAN, PT'S GOAL IS TO GET BETTER AND GO HOME. PT DENIES NEEDS AT THIS MOMENT. PT SIGNED CONSENTS. SITTING IN RECLINER AND WATCHING BASEBALL. GAVE REPORT TO NIGHT NURSE TO CONTINUE TO MONITOR.
--- NOTE | 2018-08-10 01:51 | NUR ---
assumed care at approx 1900 evening 08/09. pt sitting up in recliner at change of shift. pt alert and oriented x4, appropriate and cooperative. pt given pain meds at hs with water tolerating well. pt preferring to sleep in recliner with legs elevated. pt in isolation as ordered. pt appears to be sleeping soundly with hourly rounding checks. bed alarm on, call light in reach. will continue to monitor.
[2018-08-10 05:50] LABS: HEMATOCRIT 29.5 % (37.0-47.0); HEMOGLOBIN 9.9 gm/dL (12.0-15.0); MCH 31.7 pg (26.0-34.0); MCHC 33.5 g/dL (28.0-37.0); MCV 94.6 fL (80.0-100.0); RBC 3.12 mil/uL (4.20-5.00); RDW 15.6 % (10.5-14.5); WBC 9.3 thou/uL (4.0-11.0)
[2018-08-10 06:01] LABS: CALCIUM 8.7 mg/dL (8.5-10.1); CREATININE 0.7 mg/dL (0.6-1.0); MAGNESIUM 2.1 mg/dL (1.8-2.4); POTASSIUM 4.2 mmol/L (3.5-5.1)
--- NOTE | 2018-08-10 19:54 | NUR ---
ASSUMED CARE OF PT AT 0715. PT IS A&OX4 AND VITAL SIGNS ARE STABLE. PAIN MANAGED WITH ORAL PAIN MEDICAITONS AND PT WAS ABLE TO PARTICIPATE IN SCHEDULED THERAPIES. PT TRANSFERS 1 PERSON MOD/MAX ASSIST PIVOT TO W/C. MEDICATIONS TOLERATED WHOLE WITH THIN LIQUIDS. PERIPHERAL IV SL TO LEFT AC, FLUSHES APPROPRIATELY, DRESSING C/D/I, W/O S/S OF INFECTION. BLISTER TO RLE DRESSED WITH BOARDER GAUZE WITH SILVER SULFADIAZINE. RIGHT BKA COVERED WITH STUMP IT INTERN. FALL PRECAUTIONS IN PLACE AND NURSING WILL CONTINUE TO MONITOR.
[2018-08-10 21:40] VITALS: BP 152/67
--- NOTE | 2018-08-11 01:41 | NUR ---
PT ASSESSMENT COMPLETED AND VSS. MEDS GIVEN ORDERED AND WELL TOLERATED. FALL PRECAUTIONS IN PLACE. DSG ON R BKA AND BLISTERED SITE DRY AND INTACT. PRN PAIN AND ANXIETY MEDICATION WORKING WELL. SLEEPING AT THIS TIME. WILL CONTINUE TO MONITOR FREQUENTLY.
[2018-08-11 07:15] VITALS: BP 160/79
--- NOTE | 2018-08-11 12:19 | NUR ---
Nutrition: pt admit to rehab unit S/P Right BKA. Familiar with pt from acute care admit. Intake is good, 50-100% most meals. Receives Ensure BID but would like to decrease it to once daily. Understands high protein needs. Stable weights recently. Low nutrition risk.
--- NOTE | 2018-08-11 15:18 | NUR ---
ASSUMED CARE OF PT AT 0715. REPORTS SLEPT GOOD LAST NIGHT. PT IS A&OX4 AND VITAL SIGNS ARE STABLE. C/O RIGHT STUMP PAIN 8/10 MANAGED WITH ORAL PAIN MEDICAITONS AND PT WAS ABLE TO PARTICIPATE IN SCHEDULED THERAPIES. RATES PAIN AT 2/10 NOW. PT TRANSFERS 1 PERSON MOD/MAX ASSIST PIVOT TO W/C. MEDICATIONS TOLERATED WHOLE WITH THIN LIQUIDS. PERIPHERAL IV SL TO LEFT AC, FLUSHES APPROPRIATELY. IT IS OK TO REMOVE PER DR. LANGFORD. BLISTER TO RLE DRESSED WITH BOARDER GAUZE WITH SILVER SULFADIAZINE. RIGHT BKA COVERED WITH STUMP CASINO OPERATIONS SUPERVISOR. PT SAID DRESSING CHANGE MANAGE BY WOUND NURSE PRIOR ADMIT TO 5N. DR. CERVANTES WAS NOTIFIED ON LAST TUE BUT HASN'T SINCE PT YET. CALLED DR. CERVANTES AGAIN TODAY TO CLARIFY ABOUT DRESSING. PT HAS BEEN UP WITH THERAPY AND DOING WELL, SITTING IN RECLINER AND TALKING ON PHONE AT THIS MOMENT. FALL PRECAUTIONS IN PLACE AND NURSING WILL CONTINUE TO MONITOR.
[2018-08-11 19:30] VITALS: BP 138/68
--- NOTE | 2018-08-12 01:33 | NUR ---
ASSUMED CARE OF PT AT 1915. PT IS A&OX4 AND VITAL SIGNS ARE STABLE. PT REPORTS PAIN 9/10 IN RLE, MANAGED WITH ORAL PAIN MEDICATIONS. PATIENT ON CONTACT PRECAUTIONS FOR MRSA IN RLE WOUND. RIGHT BKA COVERED WITH DRESSING AND STUMP OBSTETRICS NURSE, C/D/I, AND BLISTER TO RLE COVERED WITH BOARDER DRESSING, C/D/I. PT UP TO BATHROOM WITH 1 PERSON PIVOT WITH SBA USING GAIT BELT AND W/C. FALL PRECAUTIONS IN PLACE AND NURSING WILL CONTINUE TO MONITOR.
[2018-08-12 07:58] VITALS: BP 186/76
--- NOTE | 2018-08-12 08:50 | NUR ---
ASSUMED CARE OF PT AT 0715. REPORTS SLEPT GOOD LAST NIGHT. PT EXPERIENCED PLANTOM PAIN RATES PAIN 9/10, DESCRIBED PAIN STABBING, SHARP AND UNCONTROLLABLE EMOTION. PT CRYING AND TRY TO CALM HERSELF DOWN. PRN OXYCODONE 7.5MG GIVEN 2 TABLETS. ATIVAN LAST DOSE WAS 0235 NOT DUE UNTIL 1035. OFFERED EMOTIONAL SUPPORT. WILL ASK DOCTOR TO CHANGE FREQUENCY OF ATIVAN TO Q4HR OR 6HR. PT IS A&OX4 AND VITAL SIGNS ARE STABLE. C/O RIGHT STUMP IS C/D/I. PT WANTS TO CHANGE LATER. PLAN TO HAVE SHOWER TODAY, DRESSING CHANGE, PAIN CONTROL. PT GOT DISAPPOINTED FOR HER PAIN CONDITION. EXPLAINED TO PT ABOUT HEALING PROCESS AND ASK PT TO BE PATIENT AND ASK NOT TO HESITATTE TO ASK FOR PAIN AND ANXIETY MED WHEN NEED. PAIN IS DOWN TO 6/10 NOW AND WILL GO DOWN MORE IT UNDER CONTROL NOW. PT TRANSFERS 1 PERSON MOD/MAX ASSIST PIVOT TO W/C. MEDICATIONS TOLERATED WHOLE WITH THIN LIQUIDS. BLISTER TO RLE DRESSED WITH BOARDER GAUZE WITH SILVER SULFADIAZINE. RIGHT BKA COVERED WITH STUMP HAT CHECKER. SITTING IN RECLINER EATING BREAKFAST. ATE 75% BREAKFAST FALL PRECAUTIONS IN PLACE AND NURSING WILL CONTINUE TO MONITOR. PT CALLS APPROPRIATELY AND WILL ASK PT TO CHANGE TO WHITE MELGAR TODAY. OFFERED SUPPORTIVE CARE. REASSESSMENT PER CHART. MEDS GIVEN ORDERED AND CONTINUE TO MONITOR NEED FOR PAIN AND ANXIETY.
[2018-08-12 19:15] VITALS: BP 144/69
--- NOTE | 2018-08-13 03:26 | NUR ---
APPRECIATES ATIVAN AND PERCOCET AT HS, PLANS TO TAKE PAIN MED EVERY 4 HOURS TO STAY AHEAD OF THE PAIN. DESPITE DOING THIS HER PAIN IS A LITTLE STRONGER OVERNIGHT TONIGHT 5-6/1O. SLEEPING IN RECLINER CHAIR WITH RIGHT BKA ELEVATED ON 2 PILLOWS. PIVOT TRANSFERS SAFELY TO AND FROM WC TO TOILET.
[2018-08-13 09:02] VITALS: BP 156/64
--- NOTE | 2018-08-13 12:54 | NUR ---
ASSUMED CARE OF PT AT 0715. PT IS A&OX4 AND VITAL SIGNS ARE STABLE. PT REPORTS PAIN IN RLE WHICH WAS MANAGED WITH ORAL PAIN MEDICATIONS. CONTACT ISOLATION PRECAUTIONS IN PLACE FOR MRSA IN WOUND. WOUND TO RLE COVERED WITH DRESSING WHICH IS C/D/I WITH STUMP WHITE LEAD GRINDER IN PLACE. PT TAKES MEDICATIONS WHOLE WITH WATER, PIVOTS TO W/C WITH STAND BY ASSISTANCE. FALL PRECAUTIONS IN PLACE AND NURSING WILL CONTINUE TO MONITOR.
[2018-08-13 21:30] VITALS: BP 154/68
--- NOTE | 2018-08-14 02:23 | NUR ---
assumed care at approx 1900 evening 08/13. pt sitting up in w/c at change of shift resting and watching tv. pt alert and oriented x4, appropriate and cooperative. pt assisted into bathroom to void in toilet before falling asleep at hs. pt took meds with water tolerating well. pt preferring to sleep in recliner. pt remains in isolation as ordered. pt appears to be sleeping soundly with hourly rounding. chair alarm on and call light in reach. will continue to monitor.
[2018-08-14 07:27] VITALS: BP 123/50
--- NOTE | 2018-08-14 11:41 | NUR ---
ASSUMED CARE OF PT AT 0700. PT IS A&OX4 AND VITAL SIGNS ARE STABLE. DRESSING TO RLE CHANGED THIS SHIFT. PT REPORTED PAIN THIS SHIFT WHICH WAS MANAGED WITH PO MEDICATIONS, AND PARTICIPATED IN SCHEDULED THERAPIES. PT TRANSFERS TO WITH STB ASSIST WITH GAIT BELT. CONTACT PRECAUTIONS IN PLACE FOR MRSA IN WOUND. FALL PRECAUTIONS IN PLACE AND NURSING WILL CONTINUE TO MONITOR.
[2018-08-14 19:30] VITALS: BP 135/64
--- NOTE | 2018-08-15 01:26 | NUR ---
ASSUMED CARE @ 19:00, SITTING IN RECLINER CHAIR WITH CHAIR ALARM ON. A&OX4, ON ISOLATION FOR MRSA. DRESSING TO RBKA C/D/I. ON FALL PRECAUTIONS AND TRANSFERS WITH STAND BY ASSISTANCE. PAIN MANAGED WITH OXYCODONE/APAP GIVEN @ 20:55 FOR PS 8/10 TO R LE. CHAIR ALARM ON, CALL LIGHT WITHIN REACH. WILL CONTINUE TO MONITOR Q HOURLY ROUNDING.
--- NOTE | 2018-08-15 04:12 | NUR ---
OXYCODONE/APAP 15/650 GIVEN FOR 08/16 PAIN TO THE RLE D/T S/P AMPUTATION. FOLLOW UP PATIENT IS NOTED TO BE SLEEPING.
[2018-08-15 07:35] VITALS: BP 129/57
--- NOTE | 2018-08-15 08:44 | HC ---
[facility] [place] [address] [address] CONSULTATION Name: ROSANA NAVARRO Room #: 503-P ADM IN M.R.#: [id number] Admission: 08/09/18 ������������������ Attend Phys: Deion Fairbanks MD Discharge: ������������������ Date of : 51 Report #: [id number] THIS REPORT FOR: //name// CC: Deion Fairbanks [facility] physician/PCP DATE OF SERVICE: 08/10/2018 WOUND CARE CONSULTATION NOTE LOCATION: [facility]. REASON FOR CONSULTATION: Wound of right knee, status post right below-knee amputation. HISTORY OF PRESENT ILLNESS: The patient is a 62-year-old patient, previously seen by Dr. Jeanmarie Chaudhry. She is a patient of Dr. Kiet Pearce and a surgical patient of Dr. Deion Rocha. The patient had presented to [facility] with a history of severe peripheral arterial disease of lower extremities with a history of previous angiography and stenting. Attempts had been made to improve the blood supply by Dr. Mccormick interventionally. The patient had presented with ulcerated wound of the right foot and cellulitis, ultimately required right below-knee amputation by Dr. Deion Rocha on 08/04. Right below-knee amputation has been done. Drains have been removed. The patient is on stump admission nurse which is to remain on. The patient is on the rehab unit. We are consulted due to the finding of a new wound of the right anterior patellar knee. PAST MEDICAL HISTORY: Severe peripheral vascular disease of lower extremities. The patient is nondiabetic. History of tobaccoism, history of hypertension, previous history of ulcers and cellulitis of the right lower extremity. HOME MEDICATIONS: Included clopidogrel, Toprol-XL, aspirin, Tylenol, hydrocodone and Lyrica. SOCIAL HISTORY: Current everyday smoker, severe tobaccoism. PHYSICAL EXAMINATION: GENERAL: Shows a woman appearing her stated age. She is sitting up in a chair. LUNGS: Respirations are unlabored. HEENT: Mucous membranes are moist. HEART: Shows regular rate and rhythm. ABDOMEN: Soft. EXTREMITIES: Shows status post right below-knee amputation with a stump admission nurse on. The right patellar knee is exposed. There is at present a 2 cm x 2 cm wound of the right anterior patellar knee, [place] [address] CONSULTATION Name: ROSANA NAVARRO Room #: 503-P ADM IN M.R.#: [id number] Admission: 08/09/18 ������������������ Attend Phys: Deion Fairbanks MD Discharge: ������������������ Date of : 51 Report #: [id number] containing clear fluid. This appears to be from shearing or abrasion from one of the dressings or knee binder wraps. Patellar knee is now exposed. Blister is intact. No surrounding cellulitis. IMPRESSION: 1. Severe peripheral vascular disease of lower extremities, history of stenting. 2. History of nonhealing ulcers, right lower extremity with cellulitis, ultimately requiring right below-knee amputation by Dr. Deion Rocha on 08/04. 3. Hypertension. 4. Tobaccoism. 5. New wound of anterior patellar knee, which appears to be shearing or abrasion from the knee dressing, noninfected. PLAN: We will observe this. Keep the binder off it, treated with topical Silvadene 1% and foam border. Wound care team will follow. ��������������������������������������������� <ELECTRONICALLY SIGNED> ���������������������������������������� By: Arden Morales MD ��������������������������������������������� 08/15/18 0844 1026 1206 Arden Morales MD /nt
--- NOTE | 2018-08-15 12:34 | NUR ---
team meeting, recommendation: dc 12th with [facility] ( pt, ot, nursing). cont therapy, lay flat on bed no pillow un bka and pillow up higher when in wheel chair rt contractor.
[2018-08-15 19:30] VITALS: BP 124/49
--- NOTE | 2018-08-15 20:07 | NUR ---
ASSUMED CARE AT APPROX 0715. PATIENT A/O X4. C/O PAIN IN RIGHT LEG. PRN PAIN MEDS ADMINISTERED AVAILABLE, PATIENT STATES HER GOAL IS TO GO LONGER BETWEEN ADMINISTRATIONS OF PAIN MED, TOLERABLE. EDUCATED ON PROPER POSITIONING OF RIGHT KNEE, PATIENT VERBALIZED TEACHING ACCURATELY. DRESSING TO RIGHT BKA C/D/I, CHANGED TODAY PER ORDERS. FOAM DRESSING TO BLISTER ON RIGHT KNEE CHANGED. CONTACT ISO PRECAUTIONS IN PLACE. FALL PRECAUTIONS IN PLACE. PATIENT WHITE BELT PER THERAPY, APPROPRIATE, CALLS FOR ASSISTANCE. SBA WITH TRANSFERS. ORDER FOR ABHI FAXED TO [facility]. PATIENT PARTICIPATED IN THERAPY. ROUNDED ON HOURLY. RESTING IN RECLINER AT SHIFT CHANGE.
[2018-08-15 22:15] VITALS: BP 126/59
--- NOTE | 2018-08-16 00:47 | NUR ---
PT ASSESSMENT COMPLETED AND VSS. MEDS GIVEN ORDERED AND WELL TOLERATED. FALL PRECAUTIONS IN PLACE. UP TO THE BATHROOM WITH ASST/GAIT/WHEELCHAIR - STEADY. R BKA SITE DSG AND BLISTER SITE DRESSING DRY AND INTACT. SLEEPING WELL. WILL CONTINUE TO MONITOR FREQUENTLY. SLEEP/PAIN MEDICATION WORKING WELL AT THIS TIME.
[2018-08-16 05:30] LABS: ABSOLUTE NEUTROPHILS 4.5 thou/uL (1.4-8.2); BASOPHILS 0.7 % (0.0-2.0); EOSINOPHILS 3.3 % (0.0-3.0); HEMATOCRIT 31.1 % (37.0-47.0); HEMOGLOBIN 10.4 gm/dL (12.0-15.0); LYMPHOCYTES 24.8 % (24.0-44.0); MCH 31.5 pg (26.0-34.0); MCHC 33.4 g/dL (28.0-37.0); MCV 94.3 fL (80.0-100.0); MONOCYTES 10.4 % (1.0-8.0); PLATELET COUNT 447 thou/uL (150-400); POLYS 60.8 % (36.0-66.0); RDW 15.4 % (10.5-14.5); WBC 7.4 thou/uL (4.0-11.0)
[2018-08-16 05:38] LABS: CALCIUM 9.2 mg/dL (8.5-10.1); CREATININE 0.9 mg/dL (0.6-1.0); MAGNESIUM 2.3 mg/dL (1.8-2.4); POTASSIUM 4.3 mmol/L (3.5-5.1)
[2018-08-16 08:05] VITALS: BP 132/58
--- NOTE | 2018-08-16 14:03 | NUR ---
WOUND CARE FOLLOW UP; ROUNDING WITH DR CYNDI AUSTIN AND FELI FORMULATION SCIENTIST. THE RIGHT BKA SITE IS STABLE AT THIS TIME WITH A STAPLED INCISION LIKE WITH NO S/S OF DEHESCIENCE. REOMMENDATIONS; CONTINUE XEROFORM, ABD, KERLIX DISCUSSED WITH RN
--- NOTE | 2018-08-16 18:17 | NUR ---
ASSUMED CARE OF PT AT 0715. PT IS A&OX4 AND VITAL SIGNS ARE STABLE. PT REPORTED PAIN WHICH WAS TREATED WITH PO MEDICATIONS AND PT WAS ABLE TO PARTICIPATE IN SCHEDULED THERAPIES. TAKES MEDICAITONS WHOLE WITH THIN LIQUIDS WITHOUT DIFFICULTY, PIVOT TRANSFERS WITH 1 PERSON SBA AND GAIT BELT. PLANS FOR D/C ON TUESDAY. DRESSING CHANGED TO RLE. CONTINUE CONTACT PRECAUTIONS FOR MRSA OF WOUND. FALL PRECAUTIONS IN PLACE AND NURSING WILL CONTINUE TO MONITOR.
[2018-08-16 19:29] VITALS: BP 146/65
--- NOTE | 2018-08-17 00:39 | NUR ---
PT ASSESSMENT COMPLETED AND VSS. MEDS GIVEN ORDERED AND WELL TOLERATED. FALL PRECAUTIONS IN PLACE. BRACE ON R BKA SITE INTACT. PRN PAIN AND ANXIETY MEDICATION WORKING WELL. UP TO THE BATHROOM WITH ASST/GAIT/PIVOT TO WHEELCHAIR. STEADY. VOIDING MODERATE AMOUNT OF YELLOW URINE. SLEEPING WELL. WILL CONTINUE TO MONITOR FREQUENTLY.
--- NOTE | 2018-08-17 08:20 | NUR ---
CM VISITED WITH PT RT WC, PT UNABLE TO QUALIFY FOR WC. PT IS MANUEL APPOINTMENT WITH DR MARINELLI. PT WILL DC HOME WITH [facility] ON . PT FRIEND IS GOING TO LOOK FOR WC AND PT HAS WC TO [place] UNTIL SHE GETS ONE OF HER OWN. FRIEND IS GOING TO TAKE HER HOME ON .
[2018-08-17 08:39] VITALS: BP 85/62
[2018-08-17 08:40] VITALS: BP 110/70
--- NOTE | 2018-08-17 18:44 | NUR ---
ASSUMED CARE AT APPROX 0715. PATIENT A/O X4. VSS. TRANSFERS WITH SBA PIVOT TO . C/O PAIN IN RLE. PRN PAIN MEDS ADMINSITERED. INCISION WELL APPROXIMATED, REY INTACT, DRESSING CHANGED PER ORDERS. PATIENT PARTICIPATED IN THERAPY. FALL PRECAUTIONS IN PLACE. CONTACT ISOLATION MAINTAINED. AMPUSHIELD IN PLACE. PATIENT HAS WALKER FOR HOME, SPOKE WITH CASE MANAGEMENT ABOUT CME. ANTICIPATED D/C TOMORROW, HOSPITALIST INSPECTOR [employer] AND [employer]LECT[employer] NOTIFIED. PATIENT RESTING IN RECLINER. ROUNDED ON HOURLY. WILL CONTINUE TO MONITOR.
[2018-08-17 20:45] VITALS: BP 126/63
--- NOTE | 2018-08-17 23:11 | NUR ---
PATIENT UP IN CHAIR WITH PILLOW UNDER HER RIGHT LEG. AMPU SLEEVE ON AND IN PLACE. PATIENT WITH C/O PHANTOM PAIN TONIGHT. OXY PAIN MED GIVEN AROUND 2129 WITH PAIN OF 7/10. PATIENT DID NOT WANT LORAZEPAM AT THAT TIME. ON REASSESSMENT OF PAIN, PATIENT WAS AT 3/10. ASSISTED PATIENT TO THE BATHROOM. SHE IS STANDBY ASSIST BUT VERY INDEPENDENT AND ABLE TO PIVOT AND TRANSFER BY SELF. PATIENT ANXIOUS ABOUT GOING HOME TOMORROW. SHE'S EXCITED TO GO HOME BUT JUST SITTING AND ANTICIPATING HOW THINGS WILL GO AND WISHING THE TIME TO GO HOME WOULD COME FASTER. LORAZEPAM 1MG GIVEN AT THIS TIME. WILL CONTINUE TO MONITOR. PATIENT HAS CALL LIGHT WITH HER SITTING UP IN A CHAIR.
[2018-08-18 07:37] VITALS: BP 128/54
[2018-08-18] MEDS ORDERED: CLOPIDOGREL75 MG PO ×2 (08:23→09:45)
[2018-08-18] MEDS ORDERED: METOPROLOL SUCC25 M1 PO ×2 (08:23→09:45)
[2018-08-18] MEDS ORDERED: NEURONTIN 300300 M1 PO ×2 (08:23→09:44)
[2018-08-18] MEDS ORDERED: SSD CREAM 1% 5050 GM TOP ×2 (08:23→09:44)
[2018-08-18] MEDS ORDERED: PEPCID20 MG PO (08:23)
[2018-08-18 10:25] VITALS: BP 128/54
[2018-08-18 10:49] VITALS: BP 128/54
[2018-08-18 12:34] VITALS: BP 128/54
[2018-08-18 13:45] VITALS: BP 128/54
--- NOTE | 2018-08-18 15:14 | NUR ---
DISCHARGE NOTE: SW reviewed chart and spoke with nursing and attending physician. Pt is medically stable for discharge home today with services. SW notified intake at [facility] of discharge orders. Pt's friend will provide transportation home. Contact info for [facility] placed in pt's discharge summary. No additional SW needs identified at this time, but is available to assist should needs arise.
--- NOTE | 2018-08-18 16:19 | NUR ---
ASSUMED CARE AT APPROX 0715. PATIENT A/O X4. VSS. C/O PAIN IN RLE. PAIN MEDS PROVIDED PER ORDERS. AMPUSHIELD IN PLACE. CONTACT ISOLATION MAINTAINED. PATIENT PIVOT TRANSFERED SBA TO . WOUND CARE TEAM ROUNDED ON PATIENT, GAVE ORDERS FOR DRESSING CHANGES TO BE COMPLETED M/W/F & PRN, TO BE MANAGED BY HOME HEALTH. PATIENT AND HER CAREGIVERS EDUCATED ON DRESSING CHANGE, ALLOWED TO OBSERVE AND ASSIST WITH CHANGE THIS DATE. PATIENT GIVEN INSTRUCTIONS TO F/U WITH PROVIDERS DIRECTED. INCISION VIEWED, WELL APPROXIMATED, REY INTACT. PATIENT DIRECTED TO F/U WITH ORTHO FOR STAPLE REMOVAL PER ORDERS. BLISTER WOUND DRESSING ALSO ADDRESSED, WOUND PHOTOGRAPHED. FALL PRECAUTIONS IN PLACE. SCRIPTS PROVIDED, INCLUDING PAIN MED SCRIPT. PATIENT AND HER CAREGIVERS LEFT UNIT APPROX 1530.
--- NOTE | 2018-08-19 14:42 | HC ---
[facility] [place] [address] [place] [address] CONSULTATION Name: ROSANA NAVARRO Room #: 503-P [facility] IN M.R.#: [id number] Admission: 08/09/18 ������������������ Attend Phys: Deion Fairbanks MD Discharge: 08/18/18 ������������������ Date of : 51 Report #: [id number] THIS REPORT FOR: //name// CC: Deion Fairbanks FAM physician/PCP DATE OF SERVICE: 08/13/2018 NEUROBEHAVIORAL STATUS EXAM ATTENDING PHYSICIAN: Deion Fairbanks MD. BOTTLE HOP: Az Martin, PhD. CLINICAL PRESENTATION: The patient is a 62-year-old female admitted to the rehab unit following a wpolj-uox-wwog amputation. She was initially admitted to the hospital with a nonhealing right first through fourth toe ulcers. She had a prior right peroneal thrombectomy with drug-eluting stent for severe peripheral vascular disease. The patient developed cellulitis and was admitted on 08/01/2018 and subsequently underwent a right gwfug-mzg-hgmm amputation. Her assessment on the rehab unit included severe peripheral artery disease with nonhealing infected ulcers and cellulitis, now status post right qqfyp-alp-azse amputation, peripheral artery disease with prior stenting of the superficial femoral artery, functional mobility and activities of daily living deficits, pain control postoperatively, hypertension and tobacco abuse. A complete description of her medical condition and history can be found in her medical records. Neuropsychological consultation was requested to provide assistance in the assessment of cognitive and emotional status and to provide recommendations and services. Prior to this most recent medical event, she was living independently in her own home. She is reported to have been independent with all instrumental activities of daily living including driving and managing home making responsibilities without assistance. She is a high school graduate. Her employment concerns an [employer] business for a brief period of time and also working in [employer]. She has no children. Her in 2005. The patient has 1 brother. She has a close relationship with her brother and his children. She has been living alone, but has a very good social support network. TECHNIQUES UTILIZED: Clinical interview, review of medical records, staff consultation and behavioral observation, interview with a peer, Mini-Mental Status Exam 2 standard version and clock drawing. [facility] [address] [place] [address] CONSULTATION Name: ROSANA NAVARRO Room #: 503-P [facility] IN M.R.#: [id number] Admission: 08/09/18 ������������������ Attend Phys: Deion Fairbanks MD Discharge: 08/18/18 ������������������ Date of : 51 Report #: [id number] EXAMINATION FINDINGS: The patient was alert and cooperative with the assessment. She accurately described events surrounding her admission. There is no evidence of aphasia. Her thoughts are logical and goal oriented. There is no evidence of thought disorder. She does not report auditory or visual hallucinations. There is no suicidal ideation. Her mood appeared a pleasant and engaging. However, she was fidgety and restless. She indicates pain in her residual limb and is making it more difficult for her to manage sitting in a wheelchair in a comfortable manner. While her pain is much improved, she does describe intermittent phantom limb pain. She reports symptoms to primarily be a decreased appetite. She does not report difficulty with sleep, depression, anxiety, memory or word finding. There is no history of treatment for depression, anxiety or substance abuse. Her performance on the MMSE 2 brief version is within normal limits with raw score 16/16. Her performance on the MMSE 2 standard version is within normal limits with a raw score of 28/30: The patient was alert and oriented with adequate recall of recent events. Mild difficulty in sustained concentration is suggested by her performance of 3/5 on serial seven's. The patient was able to draw a clock and accurately place the hands at designated time. The patient appears alert and oriented. Cognitive functioning appears satisfactory. Mild anxiety is likely as a result of the amputation and continued discomfort from pain. DIAGNOSTIC IMPRESSIONS: Adjustment disorder with anxious mood. Tobacco abuse. RECOMMENDATIONS: The patient may benefit from the use of relaxation strategies to assist both in pain management as well as reduce anxiety Tobacco use should be eliminated. Treatment interventions including psychological counseling to assist her with discontinuation of tobacco. She may also benefit from a dental consultation as her oral health looked poor. Encouragement to maintain an active, healthy lifestyle upon discharge that includes exercise, diet and social recreation. Thank you very much for allowing me to provide the consultation on this patient. ��������������������������������������������� <ELECTRONICALLY SIGNED> ���������������������������������������� By: Az Martin, PhD ��������������������������������������������� 08/19/18 1442 [id number] Az Martin, PhD /nt
== END 2018-08-18 15:32 | disposition home health service (06) | DRG 300 ==
LOC: ENTRNSPT 08-18 15:16 → EDTRNSPTSTS 08-18 15:29
PROVIDERS: Nurse Practitioner; ADMIT Physical Medicine & Rehabilitation
DX: I73.9 Peripheral vascular disease, unspecified (principal); E44.1 Mild protein-calorie malnutrition; L03.115 Cellulitis of right lower limb; I10 Essential (primary) hypertension; F17.210 Nicotine dependence, cigarettes, uncomplicated; L97.519 Non-pressure chronic ulcer of other part of right foot with unspecified severity; R26.9 Unspecified abnormalities of gait and mobility; F43.22 Adjustment disorder with anxiety; R53.81 Other malaise; Z79.1 Long term (current) use of non-steroidal anti-inflammatories (NSAID); Z79.82 Long term (current) use of aspirin; Z79.899 Other long term (current) drug therapy; Z95.820 Peripheral vascular angioplasty status with implants and grafts; Z79.02 Long term (current) use of antithrombotics/antiplatelets; Z71.6 Tobacco abuse counseling; Z68.32 Body mass index [BMI] 32.0-32.9, adult
CPT/HCPCS: 10112

== ENCOUNTER → 2018-09-07 | Outpatient (CLI) | payer BC, OTHER ==
[~2018-09-07] MED LIST changes: +ASPIR 8181 MG PO; +LORAZEPAM 1 MG T1 M1 PO; +OXYCODONE-APAP1 EAC6 PO; +PEPCID20 MG PO; +SSD CREAM 1% 5050 GM TOP; +TYLENOL325 MG PO
== END ==
LOC: HYPER 06:52
DX: T87.81 Dehiscence of amputation stump (principal); E44.1 Mild protein-calorie malnutrition; I73.89 Other specified peripheral vascular diseases; I10 Essential (primary) hypertension; M60.076 Infective myositis, right toe(s); F17.200 Nicotine dependence, unspecified, uncomplicated; Z89.511 Acquired absence of right leg below knee; Y83.5 Amputation of limb(s) as the cause of abnormal reaction of the patient, or of later complication, without mention of misadventure at the time of the procedure

== ENCOUNTER → 2018-09-28 | Outpatient (CLI) | payer BC, OTHER | LOC: HYPER 06:51 | DX: T87.81 Dehiscence of amputation stump (principal); L97.812 Non-pressure chronic ulcer of other part of right lower leg with fat layer exposed; I73.89 Other specified peripheral vascular diseases; I10 Essential (primary) hypertension; E44.1 Mild protein-calorie malnutrition; F17.200 Nicotine dependence, unspecified, uncomplicated; Z89.511 Acquired absence of right leg below knee; Y83.5 Amputation of limb(s) as the cause of abnormal reaction of the patient, or of later complication, without mention of misadventure at the time of the procedure ==

== ENCOUNTER → 2018-10-10 | Outpatient (CLI) | payer BC, OTHER | LOC: HYPER 07:08 | DX: T87.89 Other complications of amputation stump (principal); L97.815 Non-pressure chronic ulcer of other part of right lower leg with muscle involvement without evidence of necrosis; E44.1 Mild protein-calorie malnutrition; I73.89 Other specified peripheral vascular diseases; I10 Essential (primary) hypertension; F17.200 Nicotine dependence, unspecified, uncomplicated; Y83.5 Amputation of limb(s) as the cause of abnormal reaction of the patient, or of later complication, without mention of misadventure at the time of the procedure ==

== ENCOUNTER → 2018-10-18 | Outpatient (CLI) | payer BC, OTHER | LOC: MRI 09:42 | DX: T81.89XA Other complications of procedures, not elsewhere classified, initial encounter (principal); T81.30XA Disruption of wound, unspecified, initial encounter; L97.812 Non-pressure chronic ulcer of other part of right lower leg with fat layer exposed; Y83.8 Other surgical procedures as the cause of abnormal reaction of the patient, or of later complication, without mention of misadventure at the time of the procedure; Y92.89 Other specified places as the place of occurrence of the external cause; Z89.511 Acquired absence of right leg below knee ==

== ENCOUNTER → 2018-10-25 | Outpatient (CLI) | payer BC, OTHER | LOC: HYPER 06:50 | DX: T87.81 Dehiscence of amputation stump (principal); L97.816 Non-pressure chronic ulcer of other part of right lower leg with bone involvement without evidence of necrosis; E44.1 Mild protein-calorie malnutrition; I73.89 Other specified peripheral vascular diseases; I10 Essential (primary) hypertension; F17.200 Nicotine dependence, unspecified, uncomplicated; Y83.5 Amputation of limb(s) as the cause of abnormal reaction of the patient, or of later complication, without mention of misadventure at the time of the procedure ==

== ENCOUNTER → 2018-11-14 | Outpatient (CLI) | payer BC, OTHER | LOC: HYPER 15:45 | DX: T87.81 Dehiscence of amputation stump (principal); L97.812 Non-pressure chronic ulcer of other part of right lower leg with fat layer exposed; I10 Essential (primary) hypertension; I73.89 Other specified peripheral vascular diseases; E44.1 Mild protein-calorie malnutrition; F17.200 Nicotine dependence, unspecified, uncomplicated; Z89.511 Acquired absence of right leg below knee; Y83.5 Amputation of limb(s) as the cause of abnormal reaction of the patient, or of later complication, without mention of misadventure at the time of the procedure ==

== ENCOUNTER → 2018-11-29 | Outpatient (CLI) | payer BC, OTHER | LOC: HYPER 05:51 | DX: T87.89 Other complications of amputation stump (principal); L97.815 Non-pressure chronic ulcer of other part of right lower leg with muscle involvement without evidence of necrosis; E44.1 Mild protein-calorie malnutrition; I73.89 Other specified peripheral vascular diseases; I10 Essential (primary) hypertension; F17.200 Nicotine dependence, unspecified, uncomplicated; Z89.511 Acquired absence of right leg below knee; Y83.5 Amputation of limb(s) as the cause of abnormal reaction of the patient, or of later complication, without mention of misadventure at the time of the procedure ==

== ENCOUNTER → 2018-12-13 | Outpatient (CLI) | payer BC, OTHER | LOC: HYPER 08:21 | DX: T87.81 Dehiscence of amputation stump (principal); L97.815 Non-pressure chronic ulcer of other part of right lower leg with muscle involvement without evidence of necrosis; E44.1 Mild protein-calorie malnutrition; I73.89 Other specified peripheral vascular diseases; I10 Essential (primary) hypertension; F17.200 Nicotine dependence, unspecified, uncomplicated; Z89.511 Acquired absence of right leg below knee; Y83.5 Amputation of limb(s) as the cause of abnormal reaction of the patient, or of later complication, without mention of misadventure at the time of the procedure ==

== ENCOUNTER → 2019-01-23 | Outpatient (CLI) | payer BC, OTHER | LOC: HYPER 09:58 | DX: T87.81 Dehiscence of amputation stump (principal); L97.815 Non-pressure chronic ulcer of other part of right lower leg with muscle involvement without evidence of necrosis; E44.1 Mild protein-calorie malnutrition; I73.89 Other specified peripheral vascular diseases; I10 Essential (primary) hypertension; F17.200 Nicotine dependence, unspecified, uncomplicated; Y83.5 Amputation of limb(s) as the cause of abnormal reaction of the patient, or of later complication, without mention of misadventure at the time of the procedure ==

== ENCOUNTER → 2019-02-14 | Outpatient (CLI) | payer BC, OTHER | LOC: HYPER 09:35 | DX: T87.81 Dehiscence of amputation stump (principal); L97.815 Non-pressure chronic ulcer of other part of right lower leg with muscle involvement without evidence of necrosis; E44.1 Mild protein-calorie malnutrition; I73.89 Other specified peripheral vascular diseases; I10 Essential (primary) hypertension; F17.200 Nicotine dependence, unspecified, uncomplicated; Y83.5 Amputation of limb(s) as the cause of abnormal reaction of the patient, or of later complication, without mention of misadventure at the time of the procedure ==

== ENCOUNTER → 2019-03-16 | Outpatient (CLI) | payer BC, OTHER | LOC: HYPER 08:23 | DX: T87.81 Dehiscence of amputation stump (principal); L97.815 Non-pressure chronic ulcer of other part of right lower leg with muscle involvement without evidence of necrosis; E44.1 Mild protein-calorie malnutrition; I73.89 Other specified peripheral vascular diseases; I10 Essential (primary) hypertension; F17.200 Nicotine dependence, unspecified, uncomplicated; Z89.511 Acquired absence of right leg below knee; Y83.5 Amputation of limb(s) as the cause of abnormal reaction of the patient, or of later complication, without mention of misadventure at the time of the procedure ==

== ENCOUNTER → 2019-04-05 | Outpatient (CLI) | payer OTHER | LOC: SJCVC 14:39 | DX: I25.10 Atherosclerotic heart disease of native coronary artery without angina pectoris (principal); I34.0 Nonrheumatic mitral (valve) insufficiency; I73.9 Peripheral vascular disease, unspecified; F17.200 Nicotine dependence, unspecified, uncomplicated; Z79.82 Long term (current) use of aspirin; Z79.899 Other long term (current) drug therapy ==

== ENCOUNTER → 2019-04-13 | Outpatient (CLI) | payer OTHER | LOC: HYPER 09:23 | DX: T87.81 Dehiscence of amputation stump (principal); L97.815 Non-pressure chronic ulcer of other part of right lower leg with muscle involvement without evidence of necrosis; E44.1 Mild protein-calorie malnutrition; I73.89 Other specified peripheral vascular diseases; I10 Essential (primary) hypertension; F17.200 Nicotine dependence, unspecified, uncomplicated; Y83.5 Amputation of limb(s) as the cause of abnormal reaction of the patient, or of later complication, without mention of misadventure at the time of the procedure ==

== ENCOUNTER → 2019-04-20 | Outpatient (CLI) | payer OTHER | LOC: HYPER 09:24 | DX: T87.81 Dehiscence of amputation stump (principal); L97.815 Non-pressure chronic ulcer of other part of right lower leg with muscle involvement without evidence of necrosis; I73.89 Other specified peripheral vascular diseases; E44.1 Mild protein-calorie malnutrition; I10 Essential (primary) hypertension; F17.290 Nicotine dependence, other tobacco product, uncomplicated; Z79.82 Long term (current) use of aspirin; Y83.5 Amputation of limb(s) as the cause of abnormal reaction of the patient, or of later complication, without mention of misadventure at the time of the procedure ==

== ENCOUNTER → 2019-10-04 | Outpatient (CLI) | payer OTHER | LOC: SJCVC 14:35 | PROVIDERS: ATTEND Internal Medicine | DX: I25.10 Atherosclerotic heart disease of native coronary artery without angina pectoris (principal); R94.31 Abnormal electrocardiogram [ECG] [EKG]; I10 Essential (primary) hypertension; I08.0 Rheumatic disorders of both mitral and aortic valves; E78.5 Hyperlipidemia, unspecified; F17.210 Nicotine dependence, cigarettes, uncomplicated; Z79.899 Other long term (current) drug therapy ==

== ENCOUNTER → 2019-11-08 | Outpatient (CLI) | payer OTHER | LOC: SJCVCIMAG 07:49 | PROVIDERS: ATTEND Internal Medicine | DX: I07.1 Rheumatic tricuspid insufficiency (principal); I27.20 Pulmonary hypertension, unspecified; I10 Essential (primary) hypertension; F17.210 Nicotine dependence, cigarettes, uncomplicated; Z79.899 Other long term (current) drug therapy ==

== ENCOUNTER → 2019-11-12 | Outpatient (CLI) | payer OTHER | LOC: SJCVC 09:04 | PROVIDERS: ATTEND Internal Medicine | DX: I25.10 Atherosclerotic heart disease of native coronary artery without angina pectoris (principal); I10 Essential (primary) hypertension; I34.0 Nonrheumatic mitral (valve) insufficiency; E78.5 Hyperlipidemia, unspecified ==

== ENCOUNTER 2020-02-13 15:24 | Inpatient (IN) | payer OTHER ==
[~2020-02-13] VITALS: Ht 167.6 cm; Wt 97.6 kg
[~2020-02-13 15:24] MED LIST changes: -NIFEDIPINE ER60 M1 PO
[2020-02-13 15:28] VITALS: BP 144/58
[2020-02-13] MEDS ORDERED: NIFEDIPINE ER60 M1 PO (16:32)
[2020-02-13 16:52] LABS: ABSOLUTE NEUTROPHILS 9.1 thou/uL (1.4-8.2); BASOPHILS 0.8 % (0.0-2.0); HEMATOCRIT 43.5 % (37.0-47.0); LYMPHOCYTES 13.4 % (24.0-44.0); MCH 30.2 pg (26.0-34.0); MCHC 32.2 g/dL (28.0-37.0); MCV 93.8 fL (80.0-100.0); MONOCYTES 6.8 % (1.0-8.0); PLATELET COUNT 366 thou/uL (150-400); RBC 4.64 mil/uL (4.20-5.00); RDW 14.8 % (10.5-14.5)
[2020-02-13 17:02] LABS: CALCIUM 8.9 mg/dL (8.5-10.1); CREATININE 0.8 mg/dL (0.6-1.0); POTASSIUM 4.2 mmol/L (3.5-5.1)
[2020-02-13 17:08] LABS: ALBUMIN 3.5 g/dL (3.4-5.0); TOTAL BILIRUBIN 0.3 mg/dL (0.2-1.0); TOTAL PROTEIN 7.1 g/dL (6.4-8.2)
[2020-02-13 18:57] LABS: FOLIC ACID 15.9 ng/mL (8.6-58.9)
[2020-02-13 19:14] VITALS: BP 127/80
[2020-02-13 19:22] VITALS: BP 127/80
[2020-02-13 19:28] VITALS: BP 162/84
[2020-02-13 19:50] VITALS: BP 150/73
--- NOTE | 2020-02-13 23:23 | NUR ---
ASSUMED CARE OF PT FROM ED AT 1940HRS. PT AOX4 AND LETS NEEDS BE KNOWN. FALL PRECAUTION IN PLAECE. PT WAS ORIENTED TO THE UNIT AND HER ROOM. PT WAS ABLE TO ANSWER ALL ADMISSION RELATED QUESTIONS AND SIGN CONSENTS. PT IS ON TELE RUNNING SR. ABX TREATMENT CONTINUED. PT REPORTED SOME PAIN AND PRN MEDS GIVEN. PT HAS R BKA. PT LIKES TO DANGLE LLE. PT REQUESTED TO BE ON THE RECLINER FOR THE NIGHT. VSS AND NO S/S OF ACUTE DISTRESS. WILL CONTINUE TO MINITOR.
[2020-02-14 04:51] VITALS: BP 122/73
[2020-02-14 07:05] VITALS: BP 140/70
[2020-02-14 09:54] LABS: CHOLESTEROL 153 mg/dL (<200); HDL CHOLESTEROL 60 mg/dL (>40); LDL CHOLESTEROL 69 mg/dL (<100); TC:HDL 2.6 Ratio (Not establshd); TRIGLYCERIDE 121 mg/dL (<150); VLDL 24 mg/dL (<40)
--- NOTE | 2020-02-14 11:59 | NUR ---
PT ADMITTED RELATED TO L LE TOE WOUNDS. PT HAS HX OF R BKA. CM REVIEWED CHART AND SPOKE WITH CARE TEAM. CM CALLED AND SPOKE WITH PT THIS MORNING. PT APPEARED TO BE A&O X4. CM ROLE INTRODUCED. PT INDICATED SHE LIVES ALONE IN A RANCH STYLE HOUSE WITH A RAMP TO ENTER AND ALL NEEDS ON 1 LEVEL. PT INDICATED SHE HAS A WC, FWW, SHOWER CHAIR, AND PROSTHESIS FOR HOME USE. PT INDICATED SHE HAD USED [facility] IN THE PAST FOR HH SERVICES. PT INDICATED SHE HASN'T HAD A SNF OR POST ACUTE CARE STAY. PT INDICATED SHE HOPES TO BE ABLE TO RETURN HOME ONCE MEDICALLY STABLE BUT THAT SHE ISN'T COMPLETELY OPPOSED TO POST ACUTE CARE STAY IF IT'S RECOMMENDED. WC CONSULTED , ON IV ABX VANC AND ZOSYN. CM TO FOLLOW INDICATED WITH DC PLANNING.
[2020-02-14] MEDS ORDERED: NIFEDIPINE ER60 M1 PO (14:56)
[2020-02-14 15:30] VITALS: BP 154/63
[2020-02-14 19:34] VITALS: BP 127/75
--- NOTE | 2020-02-14 19:56 | NUR ---
Assumed pt care this am, Vs stable on telemetry. Preferred to stay on the recliner with her feet down, as per the pt elevation of her leg makes the pain worse. Pain is managed with medications partial relief is noted. Left foot is tight, red and white to the touch with extremely dry skin on the toes. Scheduled for arteriogran tomorrow am, NPO from midnight onwards, pt is informed. POC followed with no signs of distress noted. Endorsed to the night nurse.
[2020-02-15 06:21] LABS: HEMOGLOBIN 13.4 gm/dL (12.0-15.0); MCH 30.2 pg (26.0-34.0); MCHC 31.9 g/dL (28.0-37.0); MCV 94.8 fL (80.0-100.0); RBC 4.43 mil/uL (4.20-5.00); RDW 14.8 % (10.5-14.5); WBC 8.8 thou/uL (4.0-11.0)
[2020-02-15 06:49] LABS: CALCIUM 9.1 mg/dL (8.5-10.1); POTASSIUM 4.3 mmol/L (3.5-5.1)
[2020-02-15 07:35] VITALS: BP 185/90
--- NOTE | 2020-02-15 08:27 | NUR ---
Patient BP elevated, patient has been on NPO for procedure. Dr. Adiel newman, awaiting response.
--- NOTE | 2020-02-15 08:46 | NUR ---
Nutrition: pt assessed due to dx L LE toe wounds. Hx Rt BKA, PVD, HLD, HTN. Pt seen 02/13 for education related to wound healing. Good appetite 85-100% of meals documented 02/13. NPO today for angiogram. No weight loss per hx. BMI 33, obesity class 1. Will offer low calorie high protein Ensure max to assist with wound healing needs but consider low nutrition risk.
--- NOTE | 2020-02-15 10:02 | NUR ---
Dr. Chun paged for the BP being elevated, no response yet. Surgery nurse is taking the patient to the surery, he is aware of the BP.
--- NOTE | 2020-02-15 10:08 | NUR ---
The night nurse charted Piperacillin as administrated at 0529 am, the staff found the Pipreacillin bag on the desk, the staff talked to the patient and made sure the night nurse didnot administrate the Piperacillin, the staff began to administrate the Piperacillin around 8am. Patient only had on IV, the staff decided to put another IV access for the patient so she could have Vancomycin which was scheduled at 7 am. The staff had not got the time to begin a new IV before the surgery nurse arrived and took the the patient to the surgery. The surgery nurse is aware the Piperacillin is not finished, vancomycin has been administrated and BP elvevated but Dr. Chun has not answered the page to tell the staff if the staff can administrate PO medication for BP. jr has no IV medication for BP.
--- NOTE | 2020-02-15 18:32 | NUR ---
ASSUMED CARE OF PT AT APPOX 1315 FROM 4W AFTER LERO PROCEDURE. ASSESSMENT CHARTED. MEDS GIVEN PER APR. PT A&OX4. RATES PAIN 8-10, TREATING WITH IV AND PO MEDS WITH LITTLE RELIEF. R GROIN SITE CDI, NO BRUISING OR HEMATOMA. WILL CONTINUE TO MONITOR AND FOLLOW POC.
[2020-02-15 18:49] VITALS: BP 185/90
[2020-02-15 19:30] VITALS: BP 147/74
[2020-02-16] VITALS: BP 142/69
[2020-02-16 03:30] VITALS: BP 140/96
--- NOTE | 2020-02-16 07:36 | NUR ---
PT SLEPT THROUGH MOST OF THE NIGHT. A&OX4. COMPLAINTS OF PAIN IN LEFT LEG; GIVING PAIN MEDICATIONS PER EMAR. RIGHT GROIN SITE; CDI, NO HEMATOMA. USING WHEELCHAIR. ASSESSMENT CHARTED. CONTINUING TO ASSESS ACCORDING TO POC.
[2020-02-16 08:32] VITALS: BP 149/66
[2020-02-16 16:45] VITALS: BP 121/44
[2020-02-16 19:30] VITALS: BP 143/71
--- NOTE | 2020-02-16 20:48 | NUR ---
ASSUMED CARE PT SHIFT CHANGE. ASSESSMENTS CHARTED.MEDS GIVEN PER APR. PT ALERT AND ORIENTED.VSS. C/O PAIN LEFT LEG/FOOT MANAGED WITH IV AND PO PAIN MEDS. PT UP TO WHEELCHAIR WITH STANDBY ASSIST. FRIEND AT BEDSIDE AND UPDATED ON POC. R GROIN SITE REMAINS CDI NO HEMATOMA. PLAN FOR DC ONCE PAIN REGIMEN CONTROLLED. PT RESTING IN BED IN NAP. CONTINUING TO MONITOR AND FOLLOWING POC. REPORT PASSED ONTO NOC SAROJ.
[2020-02-17 04:20] VITALS: BP 145/61
--- NOTE | 2020-02-17 04:46 | NUR ---
PATIENT SLEPT THROUGH HALF OF THE NIGHT. A&OX4. VSS. MEDS GIVEN PER EMAR. COMPLAINTS OF PAIN IN LEFT LEG AND FOOT. USES WHEELCHAIR WITHOUT TROUBLE; STANDBY ASSIST. R GROIN CDI, NO HEMATOMA NOTED. CONTINUING TO MONITOR CLOSELY ACCORDING TO POC.
[2020-02-17 07:55] VITALS: BP 157/67
[2020-02-17 08:40] VITALS: BP 157/67
[2020-02-17] MEDS ORDERED: PERCOCET 10-321 EACH PO (11:41)
[2020-02-17 11:55] VITALS: BP 145/61
[2020-02-17 12:56] VITALS: BP 157/67
--- NOTE | 2020-02-17 14:38 | NUR ---
PT CARE ASSUMED AT 0700. ASSESSMENTS CHARTED. MEDICATIONS CHARTED. LFA IV. TOILET. PERSONAL WHEELCHAIR IN ROOM. RT GROIN SITE; C/D/I. PT RECIEVES PAIN MEDS. PT DISCHARGED TO HOME. DISCHARGE PAPERWORK SIGNED. TELEMETRY D/C'D. IV D/C'D.
== END 2020-02-17 14:42 | disposition home or self-care (01) | DRG 271 ==
LOC: ER 15:24 → 4W 17:57 → EROBS 17:57 → 4W 19:30 → 2N 02-15 11:42
PROVIDERS: Nurse Practitioner; Physician Assistant; ADMIT Hospitalist; ATTEND Hospitalist
DX: I70.223 Atherosclerosis of native arteries of extremities with rest pain, bilateral legs (principal); L03.116 Cellulitis of left lower limb; L97.529 Non-pressure chronic ulcer of other part of left foot with unspecified severity; F17.210 Nicotine dependence, cigarettes, uncomplicated; G62.9 Polyneuropathy, unspecified; E78.5 Hyperlipidemia, unspecified; I10 Essential (primary) hypertension; G47.00 Insomnia, unspecified; E53.8 Deficiency of other specified B group vitamins; I70.0 Atherosclerosis of aorta; I70.1 Atherosclerosis of renal artery; E55.9 Vitamin D deficiency, unspecified; R53.81 Other malaise; Z66 Do not resuscitate; Z60.2 Problems related to living alone; Z79.82 Long term (current) use of aspirin; Z79.899 Other long term (current) drug therapy; Z79.01 Long term (current) use of anticoagulants; Z89.511 Acquired absence of right leg below knee; Z71.6 Tobacco abuse counseling; Z99.3 Dependence on wheelchair
CPT/HCPCS: 10045; 10081

== ENCOUNTER → 2020-02-13 | Outpatient (CLI) | payer OTHER ==
[~2020-02-13] MED LIST changes: +NIFEDIPINE ER60 M1 PO
== END ==
LOC: HYPER 11:46
PROVIDERS: ATTEND Emergency Medicine
DX: T87.81 Dehiscence of amputation stump (principal); L97.812 Non-pressure chronic ulcer of other part of right lower leg with fat layer exposed; E44.1 Mild protein-calorie malnutrition; I73.89 Other specified peripheral vascular diseases; I10 Essential (primary) hypertension; F17.200 Nicotine dependence, unspecified, uncomplicated; Y83.5 Amputation of limb(s) as the cause of abnormal reaction of the patient, or of later complication, without mention of misadventure at the time of the procedure

== ENCOUNTER → 2020-02-20 | Outpatient (CLI) | payer OTHER ==
[~2020-02-20] MED LIST changes: +NIFEDIPINE ER60 M1 PO; +PERCOCET 10-321 EACH PO
== END ==
LOC: HYPER 10:32
PROVIDERS: ATTEND Emergency Medicine
DX: T87.81 Dehiscence of amputation stump (principal); I70.245 Atherosclerosis of native arteries of left leg with ulceration of other part of foot; L97.822 Non-pressure chronic ulcer of other part of left lower leg with fat layer exposed; I70.238 Atherosclerosis of native arteries of right leg with ulceration of other part of lower leg; L97.812 Non-pressure chronic ulcer of other part of right lower leg with fat layer exposed; E44.1 Mild protein-calorie malnutrition; I73.89 Other specified peripheral vascular diseases; I10 Essential (primary) hypertension; F17.200 Nicotine dependence, unspecified, uncomplicated; Y83.5 Amputation of limb(s) as the cause of abnormal reaction of the patient, or of later complication, without mention of misadventure at the time of the procedure

== ENCOUNTER → 2020-03-06 | Outpatient (CLI) | payer OTHER ==
[~2020-03-06] VITALS: Ht 167.6 cm; Wt 90.7 kg
[~2020-03-06] MED LIST changes: +ASA81BEC PO; +ENDOCET 7.5-321 EACH PO; +GABAPENTIN600 M1 PO; +NORTRIPTYLINE H10 M2 PO; +PERCOCET 10-321 EAC1 PO; +PLAVIX 75 MG TA75 MG PO; +TOPROL XL25 MG PO; +ULTRAM 50MG TAB50 MG PO
[2020-03-06 10:04] VITALS: BP 134/61
--- NOTE | 2020-03-06 10:19 | NUR ---
Pain Clinic Assessment: 1. History of Osteoarthritis: Not Applicable History of Rheumatoid Arthritis: Not Applicable 2. Height: 5 ft. 6 in. 167.6 cm. Weight: 200.0 lb. oz. 90.720 kg. Patient's BMI: 32.3 3. Vital Signs: BP: 134/61 Pulse: 90 Resp: 14 Temp: 02 Sat: 95 ECG Mon: 4. Pain Intensity: 7 5. Fall Risk: Dizziness: N Needs help standing or walking: Y Fallen in the last 3 months: N Fall risk comments: 6. Patient on Blood Thinner: Clopidogrel Bisulf(Plavix 7. History of Hypertension: Y 8. Opioid Therapy greater than 6 weeks: N Opiate Contract Signed: 9. Risk Assessment Tool Provided: low-0 10. Functional Assessment Tool: 59/70 11. Recreational Drug Use: Never Drug Type: Tobacco Use: Current Every Day Smoker Tobacco Type: Cigarettes Amount or Packs/day: 1/2 pack How Many Years: 40 Alcohol Use: No Frequency: Quant:
== END ==
LOC: PAIN 07:01
PROVIDERS: ATTEND Anesthesiology Pain Medicine
DX: I25.10 Atherosclerotic heart disease of native coronary artery without angina pectoris (principal); G62.9 Polyneuropathy, unspecified; F32.9 Major depressive disorder, single episode, unspecified; J44.9 Chronic obstructive pulmonary disease, unspecified; F17.200 Nicotine dependence, unspecified, uncomplicated; G89.29 Other chronic pain; Z89.612 Acquired absence of left leg above knee; Z02.71 Encounter for disability determination; Z88.8 Allergy status to other drugs, medicaments and biological substances; Z79.899 Other long term (current) drug therapy

== ENCOUNTER → 2020-03-06 | Outpatient (CLI) | payer OTHER | LOC: HYPER 13:10 | PROVIDERS: ATTEND Emergency Medicine | DX: T87.81 Dehiscence of amputation stump (principal); I70.245 Atherosclerosis of native arteries of left leg with ulceration of other part of foot; L97.522 Non-pressure chronic ulcer of other part of left foot with fat layer exposed; I70.238 Atherosclerosis of native arteries of right leg with ulceration of other part of lower leg; L97.812 Non-pressure chronic ulcer of other part of right lower leg with fat layer exposed; E44.1 Mild protein-calorie malnutrition; I73.89 Other specified peripheral vascular diseases; I10 Essential (primary) hypertension; F17.200 Nicotine dependence, unspecified, uncomplicated; Y83.5 Amputation of limb(s) as the cause of abnormal reaction of the patient, or of later complication, without mention of misadventure at the time of the procedure ==

== ENCOUNTER 2020-03-11 09:47 | Inpatient (IN) | payer OTHER ==
[~2020-03-11] VITALS: Ht 167.6 cm; Wt 90.7 kg
[2020-03-11 10:08] VITALS: BP 133/53
[2020-03-11 10:38] LABS: ABSOLUTE NEUTROPHILS 6.1 thou/uL (1.4-8.2); EOSINOPHILS 3.1 % (0.0-3.0); HEMATOCRIT 43.5 % (37.0-47.0); HEMOGLOBIN 14.6 gm/dL (12.0-15.0); LYMPHOCYTES 14.3 % (24.0-44.0); MCH 30.9 pg (26.0-34.0); MCHC 33.6 g/dL (28.0-37.0); MCV 92.1 fL (80.0-100.0); PLATELET COUNT 368 thou/uL (150-400); POLYS 74.6 % (36.0-66.0); RBC 4.72 mil/uL (4.20-5.00); WBC 8.2 thou/uL (4.0-11.0)
[2020-03-11 10:46] LABS: CREATININE 0.9 mg/dL (0.6-1.0); POTASSIUM 4.1 mmol/L (3.5-5.1)
[2020-03-11 11:04] VITALS: BP 133/53
[2020-03-11 11:17] VITALS: BP 134/66
--- NOTE | 2020-03-11 12:04 | NUR ---
ASSUMED CARED AT 1150. PT IS A&OX 4. VSS. HEART AND LUNG SOUND ARE REGULAR. FALL PRECAUTION. WHEELCHAIR WAS WITH PT FROM HOME. WILL CONTINUE TO MONITOR.
[2020-03-11 17:03] VITALS: BP 150/77
[2020-03-11 20:45] VITALS: BP 148/82
--- NOTE | 2020-03-12 02:37 | NUR ---
ASSUMED PT CARE AT 1900. PT IS A&OX4. PT IS ON ROOM AIR. LUNG SOUNDS ARE CLEAR AND PULSE IS REGULAR. PT IV IS PATENT WITH FLUIDS RUNNING AT 75MLS / HR. PT IS A SBA TO THE , PIVOT TO HER WHEELCHAIR. PERFORMED A DRESSING CHANGE ON THE PT LEFT 2ND & 3RD TOE. PT TOLERATES MEDICATION. PT STATES THAT HE PAIN INCREASED FROM A 7 TP A 9. ORAL PAIN MEDICATION ADMINISTERED. PT IS NOW SLEEPING IN HER ROOM. HOURLY ROUNDING DONE. WILL CONTINUE TO MONITOR.
[2020-03-12 04:15] VITALS: BP 145/73
[2020-03-12 05:12] LABS: HEMATOCRIT 41.4 % (37.0-47.0); HEMOGLOBIN 13.5 gm/dL (12.0-15.0); MCH 30.4 pg (26.0-34.0); MCHC 32.6 g/dL (28.0-37.0); MCV 93.3 fL (80.0-100.0); RBC 4.44 mil/uL (4.20-5.00); WBC 7.1 thou/uL (4.0-11.0)
[2020-03-12 05:55] LABS: CALCIUM 8.8 mg/dL (8.5-10.1); CREATININE 0.9 mg/dL (0.6-1.0); POTASSIUM 4.1 mmol/L (3.5-5.1)
[2020-03-12 07:55] VITALS: BP 142/81
--- NOTE | 2020-03-12 11:14 | NUR ---
Case opened to follow for dc planning needs. Drop Wire Aliner visited with the pt at bedside and cm role introduced. She is a&ox4 and lives indep in her own home. She has a ramp to enter as she is s/p BKA and uses a w/c, rwalker and prothesis. She is indep with gait/txs' and adl's utilizing her dme. She notes her friends Natasha and Bijan Schmitt help with transport and errands. She does not have a dpoa or adv directive in place but is planning to meet with an securities attorney to get her will updated and will get those documents in place as well. She denies any dc concerns. She is open to HH referral if recommended post op. She will likely have 1 or 2 toes amputated tomorrow. Will ask for PT eval post op.
[2020-03-12] MEDS ORDERED: ALIGN4 MG PO (11:45)
[2020-03-12] MEDS ORDERED: CARBIDOPA-LEVO1 EAC5 PO (11:47)
[2020-03-12] MEDS ORDERED: LEVO-T50 MCG PO (11:48)
[2020-03-12] MEDS ORDERED: LOPRESSOR50 MG PO (11:51)
[2020-03-12] MEDS ORDERED: MIRALAX17 GM PO (11:51)
[2020-03-12] MEDS ORDERED: CALCIUM CARBON500 MG PO (11:52)
[2020-03-12] MEDS ORDERED: PROTONIX40 M2 PO (11:54)
[2020-03-12 16:40] VITALS: BP 151/83
[2020-03-12 19:09] VITALS: BP 152/71
--- NOTE | 2020-03-12 19:53 | NUR ---
Assumed pt care this am, VS stable. Right BKA noted though steady when she pivots and goes to her wheel chair. Prefers to be on thee recliner. Seen by [facility], MRI ordered this was started in the am but machine went down and was advised she will have the MRI in the am. May have an amputation tonorrow depending on the results. Pain is managed with medication partial relief is noted. POC followed , endorsed to the night nurse.
[2020-03-13 04:45] VITALS: BP 164/89
--- NOTE | 2020-03-13 05:22 | NUR ---
RECIEVED CARE OF THIS PATIENT AT 1900. PATIENT ALERT AND ORIENTED X4. PATIENT SLEEPS IN RECLINER. HAS RBKA. DRESSING ON L FT D/I. REFUSED DRESSING CHANGE SAYING IT WAS DON EARLIER. C/O PAIN. MED GIVEN. SLEPT MOST OF NIGHT.
[2020-03-13 07:24] VITALS: BP 169/66
--- NOTE | 2020-03-13 08:36 | NUR ---
ASSUMED CARE AT 0700. PT IS A&O X4. WOUND CARE WAS CHANGED WITH SILVER MORPHINE. PT COMPLAINS OF PAIN AND WAS GIVEN PAIN MEDICATION. CALL LIGHT WITHIN REACH.RA. VSS. WILL CONTINUE TO MONITOR.
--- NOTE | 2020-03-13 09:26 | NUR ---
ASSUMED CARE AT 0700. PT IS A&O X4. PT COMPLAINS OF PAIN AND WAS GIVEN PAIN MEDICATION. WAS NPO AT MIDNIGHT. WILL BE NPO AT MIDNIGHT TONIGHT SURGERY WILL BE TOMORROW MORNING. PT UNDERSTOODS. IV IS INTACT AND SHOWS NO SIGNS OF REDNESS OR SWELLING. CALL LIGHT WITHIN REACH.
--- NOTE | 2020-03-13 13:50 | HC ---
[facility] [place] [place] [address] CONSULTATION Name: ROSANA NAVARRO Room #: 446-P ADM IN M.R.#: [id number] Admission: 03/11/20 Attend Phys: Pancho Montilla MD Discharge: Date of : 51 Report #: [id number] THIS REPORT FOR: cc: Cullen Wang James A. DO Stephens, Thad A. MD ~ DATE OF SERVICE: 03/11/2020 WOUND CARE CONSULTATION PERSONAL PHYSICIAN: Madi Wang. CHIEF COMPLAINT: Ischemic left second and third toes. HISTORY OF PRESENT ILLNESS: This is a 64-year-old white female who is well known to me from chronic wound care for previous right lower extremity wound, which subsequently ended up in the right qyeng-kty-ppvo amputation. The patient was doing well up until approximately 3 weeks ago when she developing pain in her left second and third toes. At that time, the toes were slightly dusky, but appeared to be viable. The patient underwent angiogram and had subsequent PCI of the iliac and popliteal arteries with improvement in her pain and circulation. The patient was able to go home; however, the patient presented to my office last with increasing severe pain in the second and third toes, second greater than third, now are somewhat black and somewhat macerated consistent with early gangrene. I wanted to hospitalize patient at that point in time. However, the patient was adamant that she go home. We started her on oral antibiotics of doxycycline and then the patient called me the night prior to admission and requested to be admitted to the hospital for further evaluation and amputation of the left second and third toes. The patient denies any other associated new wounds at this time. The patient denies any pain in her right qtmim-lyh-wxbc amputation stump site. PAST MEDICAL HISTORY: Significant for peripheral arterial disease, undergoing previous stents, previous history of right pejjt-val-iymx amputation in 2019, history of hypertension. CURRENT MEDICATIONS: Multiple, I reviewed the patient's medication list. DRUG ALLERGIES: None. SOCIAL HISTORY: The patient still smokes 1/2-1 pack of cigarettes daily. Denies alcohol use. FAMILY HISTORY: Not pertinent to current medical condition. [facility] [address] [place] [address] CONSULTATION Name: ROSANA NAVARRO Room #: 446-P [facility] IN ..#: [id number] Admission: 03/11/20 Attend Phys: Pancho Montilla MD Discharge: Date of : 51 Report #: [id number] REVIEW OF SYSTEMS: CONSTITUTIONAL: The patient denies fevers or chills. NEUROLOGIC: The patient denies numbness, tingling or weakness in arms or legs, but does complain of a burning sensation in her left foot. EYES: No complaints. ENT: No complaints. CARDIAC: The patient denies chest pain, palpitations, peripheral edema. RESPIRATORY: The patient denies shortness of breath, cough or wheezes. GASTROINTESTINAL: The patient denies nausea, vomiting, abdominal pain. GENITOURINARY: The patient denies urgency or frequency. MUSCULOSKELETAL: The patient has pain in her left second and third toes. SKIN: There are starts of gangrene to the left second and third toe. PHYSICAL EXAMINATION: VITAL SIGNS: Stable. The patient is afebrile. GENERAL: This is an alert and oriented x3, pleasant white female who is in uybx-an-ozxtoxus distress secondary to her toe pain. HEENT: Normocephalic, atraumatic. Mucous membranes are moist. Pupils are round. Sclerae white. NECK: Supple, without JVD. LUNGS: Clear. HEART: Regular. ABDOMEN: Soft, nontender. EXTREMITIES: The patient moves all extremities without difficulty. Right zsjda-mya-fvaw amputation stump site is intact. Evaluation of left lower extremity reveals 1+ dorsalis pedis and posterior tibial pulse. Somewhat wet gangrene to the left second and third toes with a slight odor and exquisite tenderness to palpation. There is minimal erythema of the foot. No signs of ascending cellulitis. Left heel is intact. NEUROLOGIC: Cranial nerves 2-12 grossly intact. Motor and sensory grossly intact. LABORATORY DATA: White count 8.2, hemoglobin 14.6, BUN 15, creatinine 0.9. C-reactive protein 13.1. Albumin 3.5. IMPRESSION: 1. Ischemic left second and third toes with severe pain at rest, related to peripheral arterial disease. 2. Right lqeus-eia-pnre amputation, 07/2018. 3. Peripheral neuropathy. 4. Severe peripheral arterial disease with recent PCI, left lower extremity. 5. Hypertension. 6. Tobacco abuse. 7. Generalized debility. [address] [address] CONSULTATION Name: RAMONROSANA S Room #: 446-P ADM IN M.R.#: [id number] Admission: 03/11/20 Attend Phys: Pancho Montilla MD Discharge: Date of : 51 Report #: [id number] PLAN: Normally, I would want to dry the toes as best I could with Betadine; however, given her significant pain and the toes are going to end up being amputated, we will start morphine, Silvadene cream to the second and third toes for pain relief. Dr. Rocha has been consulted as he was the one who did her BKA in 2019. We will make sure we will continue IV antibiotics. Continue with pain management with IV pain medicines. The patient will continue on Neurontin as well. We will continue all other home medications. We will utilize physical and occupational therapy for strengthening. We talked again about tobacco cessation and of which she is willing to try to stop as best she can. We will order an MRI of the foot per Orthopedics recommendations. We will continue to follow the patient. <ELECTRONICALLY SIGNED> By: Jeanmarie Chaudhry MD 03/13/20 1350 1314 [id number] Jeanmarie Chaudhry MD /nt
[2020-03-13 16:37] VITALS: BP 163/73
[2020-03-13 21:04] VITALS: BP 166/76
--- NOTE | 2020-03-14 02:17 | NUR ---
PT WAS OBSERVED SITTING IN THE RECLINER IN HER ROOM WATCHING TV AT THE START OF SHIFT.DR TERRAZAS STOPPED BY TO ROUND ON PT.PT REF FREDDIE CHANGE TO FOOT,STATED THAT IT WAS DONE EARLIER IN THE DAY.MYRNAG C/D/I.PT SLEEPING IN THE RECLINER IN HER ROOM PER HER PREFERENCE.PT HAS BKS.PT NPO AT THIS TIME FOR SUGERY IN THE AM.CALL LIGHT WITHIN REACH.
[2020-03-14 05:24] VITALS: BP 165/75
[2020-03-14 07:35] VITALS: BP 157/70
[2020-03-14 10:07] VITALS: BP 189/89
--- NOTE | 2020-03-14 12:51 | NUR ---
PT ROUNDING POC UPDATE: PT HAD TOE AMBUATATION SX TODAY. PT WILL REMAIN HOSPITALIZE FOR OBSERVATION.
[2020-03-14 16:54] VITALS: BP 172/83
--- NOTE | 2020-03-14 18:30 | NUR ---
PT ASSESSED AT START OF SHIFT. C/O OF A LOT OF FOOT PAIN BEFORE SURGERY THIS AM BUT HAD WORSE PAIN AFTER RETURNED FROM OR. REC RM STATED THEY HAD DIFFICULTY W/ PAIN CONTROL. DR. MALLOY NOTIFIED AND PAIN MEDS INCREASED. PT FEELING SOME BETTER. FOOT DSNG DRY AND INTACT. HAD SOME CLEAR LIQUIDS BUT C/O NAUSEA. ZOFRAN GIVEN W/ RELIEF.
[2020-03-14 20:50] VITALS: BP 155/77
[2020-03-15 04:49] LABS: HEMATOCRIT 37.8 % (37.0-47.0)
[2020-03-15 04:56] LABS: POTASSIUM 4.1 mmol/L (3.5-5.1)
--- NOTE | 2020-03-15 07:54 | NUR ---
PT WAS IN SO MUCH PAIN AT START OF SHIFT.PT'S PAIN MANAGED WITH IV AND PO MEDS.PT REF THE ICE PACK TO HER FOOT,SHE STATED THAT IT MADE IT WORSE.PT SLEPT IN THE RECLINER PER HER REQUEST.PT HAD NO PROBLEM WITH URINATION.REPORT TO AM NURSE.
[2020-03-15 08:00] VITALS: BP 106/57
--- NOTE | 2020-03-15 09:21 | O ---
[facility] [place] [address] OPERATIVE REPORT Name: ROSANA NAVARRO Room #: 446-P [facility] IN M.R.#: [id number] Admission: 03/11/20 Attend Phys: Pancho Montilla MD Discharge: Date of : 51 Report #: [id number] THIS REPORT FOR: cc: Cullen Wang James A. DO Kneidel, Matthew T. MD ~ DATE OF SERVICE: 03/14/2020 PREOPERATIVE DIAGNOSIS: Left foot second and third toe osteomyelitis. POSTOPERATIVE DIAGNOSIS: Left foot second and third toe osteomyelitis. PROCEDURE: Left second and third toe amputation. SURGEON: Dr. Salvatore Pack. HUMID SYSTEM OPERATOR: None. ANESTHESIA: General. ESTIMATED BLOOD LOSS: Minimal. DRAINS: No drains. TOURNIQUET TIME: Zero. ESTIMATED BLOOD LOSS: 5 mL. COMPLICATIONS: There were no complications. DESCRIPTION OF PROCEDURE: The patient brought to the operating room where she was placed under general anesthesia. Once under adequate general anesthesia, her left lower extremity was prepped and draped in sterile manner. A fishmouth-type incision about the second and third toe at the proximal phalanx was then made. This was dissected sharply down to the bone. The bone was then exposed and subsequently transected proximally in the wound and each proximal phalanx was transected just distal to the metatarsophalangeal joint. The toe was then freed from the surrounding tissue with a 15 blade and subsequently removed both the second and third toes. Once complete, the wound was irrigated copiously and closed with 2-0 and 3-0 nylon for the skin. The wound was dressed with Xeroform, 4 x 4s, and sterile soft compressive dressing was placed. There [facility] [address] [place] [address] OPERATIVE REPORT Name: ROSANA NAVARRO Room #: 446-P [facility] IN .#: [id number] Admission: 03/11/20 Attend Phys: Pancho Montilla MD Discharge: Date of : 51 Report #: [id number] was no tourniquet. There were no complications. The patient went to the recovery room without incident. <ELECTRONICALLY SIGNED> By: Salvatore Pack MD 03/15/20 0921 1055 1217 Salvatore Pack MD /nt
[2020-03-15 16:55] VITALS: BP 116/51
--- NOTE | 2020-03-15 18:29 | NUR ---
PT CARE ASSUMED AT 0700. A&Ox4. PT IN "AGONIZING"PAIN WHEN ARRIVING ON SHIFT DESCRIBING HER PAIN IF HER FOOT IS BEING CRUSHED. PAIN MEDICATION GIVEN WITH MINIMAL RESULTS. DR. MALLOY INFORMED, DILAUDED DOSE INCREASED. PAIN MANAGED BETTER NOW. PT UP IN RECLINER ALL DAY. DRESSING CHANGE COMPLEETED. IV PATENT WITH NO REDNESS OR EDEMA, FLUID SINFUSING. PT TRANSFERS SELF FROM BED TO HER OWN WHEELCHAIR. FALL PROTOCOL IN PLACE. CALL LIGHT IN REACH. WILL CONTINUE TO MONITOR.
[2020-03-15 20:21] VITALS: BP 154/65
--- NOTE | 2020-03-15 23:51 | NUR ---
PT WAS OBSERVED SITTING IN THE RECLINER IN HER ROOM WATCHING TV AT THE START OF SHIFT.PT'S PAIN MANAGED WITHPO AND IV MED.PT'S L FOOT DEPENDENT TO GRAVTY.PT ENCOURAGED TO ELEVATE THE LEG BUT PT STATED THAT HER PAIN GETS WORSE WHEN SHE ELEVATES IT.PT OBSERVED USING HER INCENTIVE SPIROMETER.PT SLEEPING IN HER RECLINER AT THIS TIME.CALL LIGHT WITHIN REACH.
[2020-03-16 04:49] VITALS: BP 179/81
[2020-03-16 07:20] VITALS: BP 163/71
[2020-03-16 16:35] VITALS: BP 144/66
[2020-03-16 19:49] VITALS: BP 151/55
--- NOTE | 2020-03-17 06:08 | NUR ---
RECEIVED CARE OF THIS PAIIENT AT 1900. PATIENT ALERT AND ORIENTED x4. DRESSING ON L FOOT D/I. HAS ARBKA. SLEEPS SPECTROGRAPHER IN CHAIR AND SPECTROGRAPHER IN BED. UP TO BSC WITH SBA. C/O PAIN, MED GIVEN. SLEPT OFF AND ON DURING NIGHT.
--- NOTE | 2020-03-17 09:05 | HC ---
[facility] [place] [address] CONSULTATION Name: ROSANA NAVARRO Room #: 446-P ADM IN M.R.#: [id number] Admission: 03/11/20 Attend Phys: Pancho Montilla MD Discharge: Date of : 53 Report #: [id number] THIS REPORT FOR: cc: Cullen Wang James A. DO Clymer, David J. MD ~ DATE OF SERVICE: 03/13/2020 CHIEF COMPLAINT: Necrotic left second and third toe. HISTORY OF PRESENT ILLNESS: This 64-year-old female has severe peripheral vascular disease. She has had a previous right below-knee amputation or vascular problems 2 years ago. She currently continues to smoke and has difficulty with hyperlipidemia and peripheral vascular disease. She has been seeing wound management for ischemic problems with the left forefoot principally involving the second and third toe. I believe they have been treating this for several months now. She is having more discomfort and she had previous vascular stents placed in left leg about 1 month ago. I am unclear if this has resulted in any significant improvements in vascular status. I have been consulted for evaluation for possible amputation of the left second and third toes. At the time of my evaluation, she states she is mildly uncomfortable with some generalized left forefoot pain. The second and third toes are obviously ischemic with a wet gangrene. There seems to be better soft tissue at the base of the toes. I do not see any clear evidence of abscess, but there is some mild edema about the foot consistent with cellulitis. Pulses are not palpable. She seems to have adequate sensation in the other digits and is hypersensitive in the second and third toes. At the time of this dictation, the MRI study of the left foot is pending. I have discussed with the patient that she certainly has severe vascular disease and it is difficult to know if she would heal at the forefoot level. Consequently, we have discussed the possibility of midfoot amputation or below-knee amputation as was required on the opposite side. She states she understands all this, but would much prefer to simply amputate the second and third toes. She understands this might not heal ____ and might require further surgery in the future, nevertheless she prefers that approach rather than a midfoot or below-knee amputation procedure. We discussed the timing and scheduling at the time of this dictation. We have tentatively placed her on the surgical schedule for Tuesday, 03/14, probably with my partner, Dr. Pack. If that schedule does not work for some reason, then possibly I can proceed later [address] [address] CONSULTATION Name: ROSANA NAVARRO Room #: 446-P [facility] IN .R.#: [id number] Admission: 03/11/20 Attend Phys: Pancho Montilla MD Discharge: Date of : 51 Report #: [id number] in the day or this coming weekend. She will in the meanwhile continue with her current medical regimen and wound care management. <ELECTRONICALLY SIGNED> By: Deion Rocha MD 03/17/20 0905 1207 1224 Deion Rocha MD /nt
--- NOTE | 2020-03-17 10:20 | NUR ---
cm spk w/pt re: [facility] preference. pt [facility] pt would like to use [facility] for a short time, does not want any skilled. cm placed signed vendor of choice in pt's chart. cm faxed referral to [facility] [phone].
--- NOTE | 2020-03-17 13:03 | NUR ---
Assess due to pt with gangrene left toes which required amputation on 03/14. Hx PVD and right BKA. Eats well and has been educated on high protein sources. On vitamin D and B12 supplementation due to hx deficiencies. Wts average 200-210 lb. Consider low nutrition risk.
[2020-03-17 13:37] VITALS: BP 151/55
--- NOTE | 2020-03-17 13:41 | NUR ---
CM CONFIRMED PT WILL START [facility] W/[facility] PER [facility]. ORDERS NEED TO BE FAXED AND [facility] NEEDS TO BE UPDATED WHETHER PT WILL BE ON IV OR PO ABX.
[2020-03-17 16:28] VITALS: BP 157/76
[2020-03-17 19:24] VITALS: BP 160/71
[2020-03-18 04:42] VITALS: BP 157/80
[2020-03-18 07:50] VITALS: BP 174/79
--- NOTE | 2020-03-18 08:02 | NUR ---
ASSUMED CARE OF THE PATIENT AT 1900; AOX4; STB TO BSC WITH W/C; VSS/ASSESSMENTS CHARTED; C/O OF PAIN MANAGED WITH PRN MEDICATIONS; PLAN IS FOR PATIENT TO D/C TO HOME WITH HOME HEALTH TODAY AND SWITCH TO PO ABX; WILL CONTINUE TO MONITOR AND FOLLOW POC.
[2020-03-18] MEDS ORDERED: AUGMENTIN 875-1 EACH PO (12:30)
[2020-03-18 13:19] VITALS: BP 151/55
--- NOTE | 2020-03-18 13:41 | NUR ---
CARE TEAM INDICATED THAT PT IS MEDCIALLY STABLE TO DC HOME THIS DAY. PT IS TO HAVE [facility]. ORDERS FAXED. PT INDICATED SHE NEEDED TRANSPORT HOME THIS DAY. PT HAS HER WC HERE WITH HER. CM SET UP WC VAN TRANSPORT [facility]IA [facility] BETWEEN [phone]. CM LEFT VM FOR PT'S FRIEND ADELINE HACKETT WITH THESE DETAILS. THEY ARE TO MEET PT AT [facility]. NO OTHER CM INTERVENTION INDICATED. CASE CLOSED.
--- NOTE | 2020-03-18 14:04 | NUR ---
DISCHARGING TO HOME WITH HOME HEALTH.
--- NOTE | 2020-03-18 16:06 | PATH ---
[facility] [address] [place] [address] PATHOLOGY RPT PROCEDURE Name: ROSANA NAVARRO Chapis Room #: 446-P DIS IN M.R.#: [id number] Admission: 03/11/20 Date of : 51 Discharge: 03/18/20 Report #: [id number] Path Case #: [id number] [facility] Accession Number: [id number] . 01 Material submitted: . toe - LEFT 2ND AND 3RD TOES. Modifiers: left, second, third . 01 Clinical history: . WET GANGRENE . 02 Diagnosis: Toes, left second and third toes, amputation: - Skin and subcutaneous tissue with ulceration, gangrenous necrosis and marked acute inflammation extending into underlying tissues as well as bone. - Bone margins viable. - Skin margins showing acute inflammation. (IUV:jairo; 03/18/2020) QMS 03/18/2020 1419 Local . 02 Electronically signed: . Ruth Trujillo MD, Pathologist NPI- [id number] . 01 Gross description: . The specimen is received in formalin, labeled "Rosana Navarro, left second and third toe". Received are two amputated digits measuring 4.4 x 1.8 x 1.7 and 4.8 x 1.9 x 1.9 cm. Both bone margins are blunt in appearance, consistent with transection, and are grossly unremarkable. The bone and soft tissue margins are differentially inked black and blue, respectively. The nail is present on the smaller segment is planning pale amaral and grossly unremarkable appearance. The epidermal surface is pale amaral and flaky in appearance with no grossly distinct nodules or lesions. There is a moderate amount of skin sloughing to the distal aspect. The nail is absent on the larger segment. The epidermal surface is pale amaral, flaky, sloughing to cronin-brown in appearance. The specimen is submitted representatively as follows: . A1-A2 full-thickness longitudinal cross section of smaller segment submitted from proximal to distal aspects, following decalcification A3-A4 full-thickness longitudinal cross-section of larger segment submitted from proximal to distal aspects, following decalcification. (CAA; 03/17/2020) QAC/QAC 03/18/2020 1417 Local . 02 Pathologist provided ICD-10: L97.529, I96, L98.[address] [address] PATHOLOGY RPT PROCEDURE Name: ROSANA NAVARRO Room #: 446-P DIS IN M.R.#: [id number] Admission: 03/11/20 Date of : 51 Discharge: 03/18/20 Report #: [id number] Path Case #: [id number] . 02 [facility] . [id number], [id number] Specimen Comment: A courtesy copy of this report has been sent to [phone] Specimen Comment: Report sent to Performed at: [address], [place] [id number] MD Qasim Cadet MD Phone: [phone] Performed at: [address] [id number] MD Ruth Trujillo MD Phone: [phone]
--- NOTE | 2020-03-20 09:02 | NUR ---
Note Given: Y Facility List Provided:Y Facility Cho[place]io: None chosen at this time Jessica Velazquez FISHER MUSSEL spoke with pt regarding BPCI on 03/17/20
== END 2020-03-18 14:16 | disposition home health service (06) | DRG 256 ==
LOC: ER 09:47 → EROBS 11:43 → 4S 11:43
PROVIDERS: Emergency Medicine; Orthopaedic Surgery Foot and Ankle Surgery; ADMIT Hospitalist; ATTEND Hospitalist
DX: I73.9 Peripheral vascular disease, unspecified (principal); L03.116 Cellulitis of left lower limb; M86.8X7 Other osteomyelitis, ankle and foot; L03.032 Cellulitis of left toe; I10 Essential (primary) hypertension; F17.210 Nicotine dependence, cigarettes, uncomplicated; G62.9 Polyneuropathy, unspecified; E78.5 Hyperlipidemia, unspecified; E53.8 Deficiency of other specified B group vitamins; E55.9 Vitamin D deficiency, unspecified; G47.00 Insomnia, unspecified; Z20.822 Contact with and (suspected) exposure to COVID-19; Z79.82 Long term (current) use of aspirin; Z79.899 Other long term (current) drug therapy; Z28.21 Immunization not carried out because of patient refusal
CPT/HCPCS: 10195; 50010; 50101; 50386; 50951; 56525; 56527; 57091; 57180; 62110; 62900; 70005

== ENCOUNTER → 2020-04-02 | Outpatient (CLI) | payer OTHER ==
[~2020-04-02] MED LIST changes: +ALIGN4 MG PO; +CALCIUM CARBON500 MG PO; +CARBIDOPA-LEVO1 EAC5 PO; +LEVO-T50 MCG PO; +LOPRESSOR50 MG PO; +MIRALAX17 GM PO; +PROTONIX40 M2 PO
== END ==
LOC: HYPER 10:52
PROVIDERS: ATTEND Emergency Medicine
DX: T87.89 Other complications of amputation stump (principal); I70.245 Atherosclerosis of native arteries of left leg with ulceration of other part of foot; L97.521 Non-pressure chronic ulcer of other part of left foot limited to breakdown of skin; I70.238 Atherosclerosis of native arteries of right leg with ulceration of other part of lower leg; L97.812 Non-pressure chronic ulcer of other part of right lower leg with fat layer exposed; E44.1 Mild protein-calorie malnutrition; I10 Essential (primary) hypertension; F17.200 Nicotine dependence, unspecified, uncomplicated; Y83.5 Amputation of limb(s) as the cause of abnormal reaction of the patient, or of later complication, without mention of misadventure at the time of the procedure

== ENCOUNTER → 2020-04-07 | Outpatient (CLI) | payer OTHER ==
[~2020-04-07] VITALS: Ht 167.6 cm; Wt 91.2 kg
[2020-04-07 09:08] VITALS: BP 158/77
--- NOTE | 2020-04-07 09:11 | NUR ---
Pain Clinic Assessment: 1. History of Osteoarthritis: Not Applicable History of Rheumatoid Arthritis: Not Applicable 2. Height: 5 ft. 6 in. 167.6 cm. Weight: 201.0 lb. oz. 91.173 kg. Patient's BMI: 32.5 3. Vital Signs: BP: 158/77 Pulse: 97 Resp: 16 Temp: 02 Sat: 96 ECG Mon: 4. Pain Intensity: 7 RT 3 LFT 5. Fall Risk: Dizziness: N Needs help standing or walking: Y Fallen in the last 3 months: N Fall risk comments: USES WC- AMPUTATION RIGHT NEW TOES AMPUTATED LEFT FOOT 6. Patient on Blood Thinner: Clopidogrel Bisulf(Plavix 7. History of Hypertension: Y 8. Opioid Therapy greater than 6 weeks: N Opiate Contract Signed: 9. Risk Assessment Tool Provided: low-0 10. Functional Assessment Tool: 59/70 11. Recreational Drug Use: Never Drug Type: Tobacco Use: Current Every Day Smoker Tobacco Type: Cigarettes Amount or Packs/day: 0.5 How Many Years: 40 Alcohol Use: No Frequency: Quant:
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
== END ==
LOC: PAIN 03-27 11:12
PROVIDERS: ATTEND Clinical Nurse Specialist Adult Health
DX: M31.9 Necrotizing vasculopathy, unspecified (principal); G54.6 Phantom limb syndrome with pain; F32.9 Major depressive disorder, single episode, unspecified; J44.9 Chronic obstructive pulmonary disease, unspecified; F17.210 Nicotine dependence, cigarettes, uncomplicated; G89.29 Other chronic pain; F11.20 Opioid dependence, uncomplicated; Z88.8 Allergy status to other drugs, medicaments and biological substances; Z89.422 Acquired absence of other left toe(s); Z79.899 Other long term (current) drug therapy

== ENCOUNTER → 2020-04-16 | Outpatient (CLI) | payer OTHER | LOC: HYPER 10:30 | PROVIDERS: ATTEND Emergency Medicine | DX: T87.89 Other complications of amputation stump (principal); I70.245 Atherosclerosis of native arteries of left leg with ulceration of other part of foot; L97.521 Non-pressure chronic ulcer of other part of left foot limited to breakdown of skin; I70.238 Atherosclerosis of native arteries of right leg with ulceration of other part of lower leg; L97.812 Non-pressure chronic ulcer of other part of right lower leg with fat layer exposed; E44.1 Mild protein-calorie malnutrition; I10 Essential (primary) hypertension; F17.200 Nicotine dependence, unspecified, uncomplicated; Y83.5 Amputation of limb(s) as the cause of abnormal reaction of the patient, or of later complication, without mention of misadventure at the time of the procedure ==

== ENCOUNTER → 2020-05-05 | Outpatient (CLI) | payer OTHER ==
[~2020-05-05] MED LIST changes: +NORTRIPTYLINE H10 M1 PO
== END ==
LOC: HYPER 11:07
PROVIDERS: ATTEND Emergency Medicine
DX: T87.89 Other complications of amputation stump (principal); L97.812 Non-pressure chronic ulcer of other part of right lower leg with fat layer exposed; E44.1 Mild protein-calorie malnutrition; I10 Essential (primary) hypertension; I73.89 Other specified peripheral vascular diseases; F17.200 Nicotine dependence, unspecified, uncomplicated; Z89.511 Acquired absence of right leg below knee; Y83.5 Amputation of limb(s) as the cause of abnormal reaction of the patient, or of later complication, without mention of misadventure at the time of the procedure

== ENCOUNTER → 2020-05-05 | Outpatient (CLI) | payer OTHER ==
[~2020-05-05] VITALS: Ht 167.6 cm; Wt 90.7 kg
[2020-05-05 10:13] VITALS: BP 155/81
--- NOTE | 2020-05-05 10:21 | NUR ---
Pain Clinic Assessment: 1. History of Osteoarthritis: Not Applicable History of Rheumatoid Arthritis: Not Applicable 2. Height: 5 ft. 6 in. 167.6 cm. Weight: 200.0 lb. oz. 90.720 kg. Patient's BMI: 32.3 3. Vital Signs: BP: 155/81 Pulse: 122 Resp: 18 Temp: 02 Sat: 96 ECG Mon: 4. Pain Intensity: 7 5. Fall Risk: Dizziness: N Needs help standing or walking: N Fallen in the last 3 months: N Fall risk comments: USES WC- AMPUTATION RIGHT NEW TOES AMPUTATED LEFT FOOT 6. Patient on Blood Thinner: Clopidogrel Bisulf(Plavix 7. History of Hypertension: Y 8. Opioid Therapy greater than 6 weeks: N Opiate Contract Signed: 9. Risk Assessment Tool Provided: low-0 10. Functional Assessment Tool: 59/70 11. Recreational Drug Use: Never Drug Type: Tobacco Use: Current Every Day Smoker Tobacco Type: Cigarettes Amount or Packs/day: 1/2 PACK How Many Years: 40 Alcohol Use: No Frequency: Quant:
== END ==
LOC: PAIN 06:56
PROVIDERS: ATTEND Clinical Nurse Specialist Adult Health
DX: M31.9 Necrotizing vasculopathy, unspecified (principal); G54.6 Phantom limb syndrome with pain; F32.9 Major depressive disorder, single episode, unspecified; J44.9 Chronic obstructive pulmonary disease, unspecified; G89.4 Chronic pain syndrome; Z89.511 Acquired absence of right leg below knee; Z79.891 Long term (current) use of opiate analgesic; Z79.899 Other long term (current) drug therapy

== ENCOUNTER → 2020-05-12 | Outpatient (CLI) | payer OTHER | LOC: SJCVC 10:45 | PROVIDERS: ATTEND Internal Medicine | DX: R94.31 Abnormal electrocardiogram [ECG] [EKG] (principal); R00.0 Tachycardia, unspecified; I25.10 Atherosclerotic heart disease of native coronary artery without angina pectoris; I10 Essential (primary) hypertension; I34.0 Nonrheumatic mitral (valve) insufficiency; I73.9 Peripheral vascular disease, unspecified; E78.5 Hyperlipidemia, unspecified; F17.210 Nicotine dependence, cigarettes, uncomplicated; Z79.82 Long term (current) use of aspirin; Z79.899 Other long term (current) drug therapy ==

== ENCOUNTER → 2020-05-21 | Outpatient (CLI) | payer OTHER | LOC: SJCVCIMAG 11:19 | PROVIDERS: ATTEND Nuclear Medicine Nuclear Cardiology | DX: I70.202 Unspecified atherosclerosis of native arteries of extremities, left leg (principal); I65.23 Occlusion and stenosis of bilateral carotid arteries; I08.3 Combined rheumatic disorders of mitral, aortic and tricuspid valves; I10 Essential (primary) hypertension; L97.929 Non-pressure chronic ulcer of unspecified part of left lower leg with unspecified severity; I77.9 Disorder of arteries and arterioles, unspecified; F17.210 Nicotine dependence, cigarettes, uncomplicated; Z72.89 Other problems related to lifestyle; Z79.899 Other long term (current) drug therapy ==

== ENCOUNTER → 2020-05-26 | Outpatient (CLI) | payer OTHER ==
[~2020-05-26] VITALS: Ht 167.6 cm; Wt 90.7 kg
[~2020-05-26] MED LIST changes: +ENDOCET 10-3251 EACH PO; +ROSUVASTATIN CA20 MG PO
[2020-05-26 14:34] VITALS: BP 155/73
--- NOTE | 2020-05-26 14:51 | NUR ---
Pain Clinic Assessment: 1. History of Osteoarthritis: DENIES History of Rheumatoid Arthritis: DENIES 2. Height: 5 ft. 6 in. 167.6 cm. Weight: 200.0 lb. oz. 90.720 kg. Patient's BMI: 32.3 3. Vital Signs: BP: 155/73 Pulse: 104 Resp: 18 Temp: 02 Sat: 97 ECG Mon: 4. Pain Intensity: 8 5. Fall Risk: Dizziness: N Needs help standing or walking: Y Fallen in the last 3 months: N Fall risk comments: USES WC- AMPUTATION RIGHT NEW TOES AMPUTATED LEFT FOOT 6. Patient on Blood Thinner: Clopidogrel Bisulf(Plavix 7. History of Hypertension: Y 8. Opioid Therapy greater than 6 weeks: N Opiate Contract Signed: 9. Risk Assessment Tool Provided: low-0 10. Functional Assessment Tool: 59/70 11. Recreational Drug Use: Never Drug Type: Tobacco Use: Current Every Day Smoker Tobacco Type: Cigarettes Amount or Packs/day: 0.5 How Many Years: 40 Alcohol Use: No Frequency: Quant:
== END ==
LOC: PAIN 12:17
PROVIDERS: ATTEND Anesthesiology Pain Medicine
DX: G89.4 Chronic pain syndrome (principal); M31.9 Necrotizing vasculopathy, unspecified; I99.8 Other disorder of circulatory system; I10 Essential (primary) hypertension; F17.200 Nicotine dependence, unspecified, uncomplicated; Z79.891 Long term (current) use of opiate analgesic; Z79.899 Other long term (current) drug therapy; Z99.3 Dependence on wheelchair

== ENCOUNTER → 2020-05-27 | Outpatient (CLI) | payer OTHER | LOC: HYPER 13:02 | PROVIDERS: ATTEND Emergency Medicine | DX: T81.31XD Disruption of external operation (surgical) wound, not elsewhere classified, subsequent encounter (principal); L97.812 Non-pressure chronic ulcer of other part of right lower leg with fat layer exposed; E44.1 Mild protein-calorie malnutrition; I10 Essential (primary) hypertension; I73.89 Other specified peripheral vascular diseases; F17.200 Nicotine dependence, unspecified, uncomplicated; Z89.511 Acquired absence of right leg below knee; Y83.8 Other surgical procedures as the cause of abnormal reaction of the patient, or of later complication, without mention of misadventure at the time of the procedure ==

== ENCOUNTER 2020-06-18 11:16 | Inpatient (IN) | payer OTHER ==
[~2020-06-18] VITALS: Ht 167.6 cm; Wt 87.9 kg
--- NOTE | ~2020-06-18 | HC ---
[facility] [place] [address] CONSULTATION Name: ROSANA NAVARRO Room #: 460-P ADM IN .R.#: [id number] Admission: 06/18/20 Attend Phys: Pancho Montilla MD Discharge: Date of : 51 Report #: [id number] THIS REPORT FOR: cc: Cullen Wang James A. DO Smithson, David G. MD ~ DOC #: [id number] Deion Fairbanks MD DATE OF SERVICE: 06/23/2020 HISTORY OF PRESENT ILLNESS: A 64-year-old white female who was admitted with a prior history of a right below-knee amputation in 2018. She has had peripheral vascular disease involving the left lower extremity and had a left second and third toe amputation for osteomyelitis on 03/14/2020. She was admitted this hospitalization with left foot gangrene, underwent left tibioperoneal atherectomy and thrombectomy on 06/19 and subsequent left transmetatarsal amputation on 06/20. She is limited to nonweightbearing on that left lower extremity. We are seeing her in rehabilitation medicine consultation. PAST MEDICAL HISTORY: Includes hypertension, peripheral neuropathy, right below-knee amputation in 2019. She notes she has been worn the prosthesis for approximately 6 months. Peripheral arterial disease with multiple stents, history of peripheral neuropathy, on Neurontin and active tobacco usage. HABITS: Cigarettes 1 pack per day. MEDICATIONS: Please see the MAR. ALLERGIES: No known drug allergies. SOCIAL HISTORY: Lives in a house alone. There are 3 steps in which a ramped, premorbid wheelchair/walker user. She has a friend who lives two blocks away. This is a lady friend and her that her closely involved. REVIEW OF SYSTEMS: No current complaints of chest pain, shortness of breath or abdominal discomfort. PHYSICAL EXAMINATION: GENERAL: A 64-year-old female, in no obvious distress. She is alert, pleasant, oriented. She is a good historian. VITAL SIGNS: Temperature 36.9, pulse 80, respirations 18, blood pressure 135/65. NEUROLOGICAL: The patient follows basic 1-step commands. Facies are symmetric. Functional range of motion of both upper extremities without obvious focal weakness. She has the old right below-knee amputation. This appears to be a short below-knee residual limb and she does have a knee flexion contracture of [facility] [address] [place] [address] CONSULTATION Name: ROSANA NAVARRO Room #: 460-P [facility] IN [facility]#: [id number] Admission: 06/18/20 Attend Phys: Pancho Montilla MD Discharge: Date of : 51 Report #: [id number] probably at least 35 degrees. Left lower extremity reveals the left transmetatarsal amputation with a dressing in place. She has reasonable strength proximally. She is limited to nonweightbearing on the left lower extremity. She has not tried any slide board transfers. ASSESSMENT: A 64-year-old female with the following problem list: 1. Left transmetatarsal amputation on 06/10/2020. 2. Status post left tibioperoneal atherectomy and thrombectomy on 06/19/2020. 3. Prior right below-knee amputation. 4. Residual right below-knee amputation flexion contracture. 5. Peripheral vascular disease. 6. Peripheral neuropathy. 7. Hypertension. 8. Tobacco abuse. PLAN: The patient is nonweightbearing to left lower extremity and has the right knee flexion contracture post prior below-knee amputation. I stressed with her the importance of trying to position that right knee in extension. Ideally, she will be able to get back into her prosthesis if she can get things stretched out. She is nonweightbearing on that left lower extremity. Note that transfer for skilled level therapies is being considered and wound care is involved. There is consideration to go over to [facility] across the street. I am in favor of that plan and think that a long term facility stay would be the most appropriate for her at this time. I seriously doubt that she will be able to return back to the home setting until she is allowed to weightbear again on that left lower extremity. I think the longer-term skilled therapy program is going to be more appropriate for her. Thank you for asking us to assist in the patient's care. Deion Fairbanks MD DGS By: [phone] Deion Fairbanks MD /nt
[~2020-06-18 11:16] MED LIST changes: -UNASYN 3 GM VIAL3 G1 IV
--- NOTE | 2020-06-18 13:09 | NUR ---
PATIENT IS A DIRECT ADMIT COMING FROM DR. CERVANTES OFFICE(WOUND CARE), FOR L FOOT CELLULITIS. PATIENT IS A&OX4 AND ABLE TO MAKE NEEDS KNOWN. VOICES PAIN 08/16 AND SPLINTING S/T PAIN. L BKA FROM 2019; PHANTOM LIMB PAIN 08/16. PROVIDER SAW PATIENT AND RESTARTED MEDS. NORCO GIVEN FOR PAIN RELIEF. GANGRENE NOTED ON L FOOT; PHOTOGRAPH TAKEN AND ON CHART. PATIENT TRANSFERS FROM BED TO / TO BED WITH SBA AND STATES SHE USES A WALKER TO AMBULATE TO BATHROOM. FRIEND AT BEDSIDE. PATIENT VOICES NO FURTHER NEEDS; IV TEAM CONSULTED FOR PICC ACCESS; WILL ATTEMPT IV INSERTION AFTER RETURN FROM CT. ABX TO INFUSE. WILL CONTINUE TO MONITOR AND AWAIT NEW ORDERS
[2020-06-18 13:23] LABS: ABSOLUTE NEUTROPHILS 7.4 thou/uL (1.4-8.2); BASOPHILS 0.8 % (0.0-2.0); EOSINOPHILS 4.4 % (0.0-3.0); HEMOGLOBIN 13.1 gm/dL (12.0-15.0); LYMPHOCYTES 18.4 % (24.0-44.0); MCH 31.4 pg (26.0-34.0); MCHC 33.6 g/dL (28.0-37.0); MCV 93.5 fL (80.0-100.0); MONOCYTES 7.2 % (1.0-8.0); PLATELET COUNT 429 thou/uL (150-400); POLYS 69.2 % (36.0-66.0); RBC 4.17 mil/uL (4.20-5.00); RDW 16.3 % (10.5-14.5); WBC 10.7 thou/uL (4.0-11.0)
[2020-06-18 13:31] VITALS: BP 144/63
[2020-06-18 14:06] LABS: ALBUMIN 3.1 g/dL (3.4-5.0); CALCIUM 8.4 mg/dL (8.5-10.1); CREATININE 0.8 mg/dL (0.6-1.0); POTASSIUM 4.3 mmol/L (3.5-5.1); TOTAL BILIRUBIN 0.3 mg/dL (0.2-1.0); TOTAL PROTEIN 6.9 g/dL (6.4-8.2)
--- NOTE | 2020-06-18 14:59 | NUR ---
VAT CONSULTED FOR PICC PLACEMENT. PT'S HX,LABS,MEDS,ORDER AND CONSENT VERIFIED. DISCUSSED BENEFITS AND RISK OF PICC WITH PT, VERBALIZED UNDERSTANDING. GIORGIO BASILIC WAS WIDELY PATENT AT 26% PER USG.4FR SL POWER PICC TRIMMED TO 44CM INSERTED TO 2CM EXTERNAL . 3CG CONFIRMED PLACEMENT WITH PEAKED P-WAVES. PICC RELEASED FOR IMMEDIATE USE PER PROTOCOL. PT TOLERATED WELL. WALLET CARD GIVEN TO PT.
[2020-06-18 17:08] VITALS: BP 146/68
[2020-06-18 21:00] VITALS: BP 129/70
--- NOTE | 2020-06-19 05:22 | NUR ---
PT C/O PAIN X 3 THRU NOC PO MEDS GIVEN . NO IV PAIN MED THRU NOC. PO MEDS EFFECTIVE. PT UP TO TOLIET X1 WITH 1 ASSIST AND W/C.
[2020-06-19 08:00] VITALS: BP 98/77
--- NOTE | 2020-06-19 10:02 | NUR ---
PT TEARFUL THIS MORNING CONCERNED ABOUT HER POSSIBLE SURGERY TODAY. PT STATES SHE WOULD LIKE TO SPEAK TO THE DOCTORS BEFORE GOING, AND REFUSED TO GO AT THIS TIME.
--- NOTE | 2020-06-19 12:02 | NUR ---
PT ADMITTED RELATED TO L FOOT CELLULITIS. CM REVIEWED CHART AND SPOKE WITH CARE TEAM. CM MET WITH PT AT BEDSIDE THIS DAY. PT APPEARED TO BE A&O X4. CM ROLE INTRODUCED. PT INDICATED SHE RESIDES IN A HOUSE ALONE WITH 3 STEPS TO ENTER AND NO STEPS SHE NEEDS TO NAVIGATE INSIDE. PT INDICATED SHE HAS A STANDARD MANUAL WC FOR HOME USE WELL A FWW. PT HAS A PROSTHESIS BUT HADN'T BEEN ABLE TO USE PT RECENTLY. PT INDICATED SHE HAD BEEN ON SERVICE WITH [facility]. PT'S FRIENDS JOSE GUADALUPE SU ASSIST HER WITH SHOPPOING AND TRANSPORT. PT INDICATED SHE HOPES TO RETURN HOME AND RESUME HH SERVICES ONCE MEDCIALLY STABLE. ORTHO, WC , AND ID CONSULTED. CM FOLLLOWING REGARDING DC PLANNING.
[2020-06-19 15:06] VITALS: BP 136/60
--- NOTE | 2020-06-19 15:27 | NUR ---
PT XFR FROM 4W. PT IS AXOX4, C/O PAIN 7/10 IN L LEG/FOOT. GAVE RX FENTANYL. PT SIGNED CONSENT FOR PROCEDURE WITH DR ODEN. WANTS TO WAIT FOR RESULTS OF PROCEDURE PRIOR TO SIGNING CONSENT FOR DR NOBLE REGARDING POSS AMPUTATION. FALL PRECAUTIONS IN PLACE. CALL LIGHT AND NEEDS WITHIN REACH. PT COMMUNICATED UNDERSTANDING. FAMILY AT THE BEDSIDE. 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 NO CONCERNS AT THIS TIME.
[2020-06-19 19:23] VITALS: BP 156/72
[2020-06-19 23:33] VITALS: BP 150/54
[2020-06-20 03:59] VITALS: BP 143/62
[2020-06-20 06:55] VITALS: BP 141/71
--- NOTE | 2020-06-20 08:51 | NUR ---
PATIENT OFF UNIT PRIOR TO SHIFT CHANGE FOR SURGERY.
--- NOTE | 2020-06-20 09:29 | NUR ---
Admit with left foot cellulitis and s/p transmetatarsal amputation today. Hx PVD, +tobacco use, and right BKA. Wt down about 6 lb > 1 yr. Will add seferino bid once diet readvanced to support the healing process. Low nutrition risk
[2020-06-20 10:00] VITALS: BP 152/73
[2020-06-20 11:25] VITALS: BP 166/65
[2020-06-20 15:15] VITALS: BP 148/61
--- NOTE | 2020-06-20 18:45 | NUR ---
PATIENT VOICES PAIN POST OP, SPOKE WITH DR. MELLISSA Montero ABOUT PAIN MANAGEMENT. PRN PAIN MEDICATIONS GIVEN PER EMAR.
[2020-06-20 19:29] VITALS: BP 133/57
--- NOTE | 2020-06-21 03:45 | NUR ---
ASSESSMENTS CHARTED, MEDS CHARTED GIVEN. PATIENT RESTING IN BED WITH CONSISTANT PAIN POST SURGERY EARLIER DURING THE DAY. CHASED PAIN TILL 0400 WHEN PATIENT WAS ABLE TO REST/SLEEP. ORIGINAL DRESSING ON LEFT FOOT DURING SHIFT. FALL PRECAUTIONS IN PLACE DURING SHIFT.
[2020-06-21 04:23] VITALS: BP 134/65
[2020-06-21 07:30] VITALS: BP 128/51
--- NOTE | 2020-06-21 08:25 | O ---
[facility] [place] [address] OPERATIVE REPORT Name: ROSANA NAVARRO Room #: 202-P ADM IN M.R.#: [id number] Admission: 06/18/20 Attend Phys: Pancho Montilla MD Discharge: Date of : 53 Report #: [id number] THIS REPORT FOR: cc: Cullen Wang James A. DO Abraham, Scott M. MD ~ DOC #: [id number] Bertin Meadows MD DATE OF SERVICE: 06/20/2020 PREOPERATIVE DIAGNOSIS: Left foot gangrene. POSTOPERATIVE DIAGNOSIS: Left foot gangrene. PROCEDURE: Left transmetatarsal amputation. SURGEON: Bertin Meadows MD RETAIL GREETER: Angela Fowler PA-C ANESTHESIA: LMA. TOURNIQUET TIME: 40 minutes. ESTIMATED BLOOD LOSS: 25 mL. COMPLICATIONS: None. SPECIMENS: The toes and forefoot were sent for permanent pathology. CONDITION UPON LEAVING OR: Stable. INDICATIONS FOR PROCEDURE: The patient is a 64-year-old female with left foot gangrene. She has peripheral vascular disease as well as history of diabetes and smoking. She has had progression of gangrene of the remaining toes of her foot. She has had previous toe amputations of the second and third toes. After discussion with her regarding treatment options including transmetatarsal amputation versus below-knee amputation, she elected for a transmetatarsal amputation. Risks, benefits, alternatives, and complications were discussed in detail with the patient including but not limited to risk of anesthesia, risk of continued infection, need for higher amputation. Informed consent was obtained from the patient's left foot was appropriately marked in the preoperative holding area. She was previously on IV antibiotics for her chronic infection and these were maintained. [address] [address] OPERATIVE REPORT Name: ROSANA NAVARRO Room #: 202-P [facility] IN [facility]#: [id number] Admission: 06/18/20 Attend Phys: Pancho Montilla MD Discharge: Date of : 53 Report #: [id number] DESCRIPTION OF PROCEDURE: She was brought to the operating room and placed in supine position on the operating table. LMA anesthesia was induced without complication. Tourniquet was placed on the left calf. Left lower extremity was prepped and draped in normal sterile fashion. Timeout was performed properly identifying the patient and procedure as well as the instrumentation. All in the operating room in agreement. Left lower extremity was elevated, tourniquet was inflated. Tourniquet time was 14 minutes. A #10 blade was used to make an incision around the base of the toes at the transition between the gangrenous tissue and the viable tissue, this was taken down to bone. Dissection along the bone was performed dorsally with Bovie cautery. The metatarsal bases were then cut with a small sagittal saw and the plantar tissues were dissected from the bone with Bovie cautery. The metatarsals and the toes and forefoot were then removed completely. Tourniquet was deflated. Wound was thoroughly irrigated with normal saline. Hemostasis obtained with Bovie cautery. There was excellent bleeding tissue. At this point, the plantar skin was flapped up and over and attached to skin with 2-0 Vicryl and 3-0 nylon and a soft dressing was applied. The patient tolerated this procedure well and went to recovery room under care of anesthesia postoperatively. MD MI Bray/TIGIST/SANIYA <ELECTRONICALLY SIGNED> By: Bertin Meadows MD 06/21/20 0825 [id number] [id number] Bertin Meadows MD /nt
--- NOTE | 2020-06-21 09:49 | NUR ---
Received awake on bed. Due medications given as prescribed, able to swallow meds w/o difficulty. On O2 at 2lpm via nasal cannula. On regular diet- tolerating well; no nausea, no vomiting and no abdominal pain noted. Continent of bowel and bladder, able to use bedpan- output measured and recorded accordingly. With prev R BKA- stump fully healed.;with L recent transmetatarsal amputation 06/20- surgical dressing C/D/I; no profuse bleeding noted, advised to keep elevated. With single lumen PICC line at R upper arm- saline locked; on IV antibiotics. Able to turn self in bed. Complained of pain, due PRN pain meds given as prescribed; on IV and PO pain meds. On telemetry; no complains and signs of chest pain, crushing sensation nad heaviness. To continue monitoring patient.
[2020-06-21 10:14] LABS: HEMATOCRIT 34.9 % (37.0-47.0); HEMOGLOBIN 11.6 gm/dL (12.0-15.0); MCH 30.8 pg (26.0-34.0); MCHC 33.2 g/dL (28.0-37.0); MCV 92.8 fL (80.0-100.0); RBC 3.76 mil/uL (4.20-5.00); RDW 16.3 % (10.5-14.5); WBC 10.9 thou/uL (4.0-11.0)
[2020-06-21 10:24] LABS: CALCIUM 8.6 mg/dL (8.5-10.1); CREATININE 0.6 mg/dL (0.6-1.0); MAGNESIUM 1.9 mg/dL (1.8-2.4); POTASSIUM 3.6 mmol/L (3.5-5.1)
[2020-06-21 11:25] VITALS: BP 120/49
[2020-06-21 15:20] VITALS: BP 108/60
[2020-06-21 19:57] VITALS: BP 112/59
--- NOTE | 2020-06-21 22:05 | NUR ---
PROGRESS PT A/O X 4. LUNGS CLEAR, ABDOMEN SOFT WITH ACTIVE BS LAST BM 06/18. LEFT FOOT SURGICAL DRESSING AND ACEWRAP C/D/I , LEG WARM TO TOUCH WITH GOOD CAP REFILL. REPORTING PAIN AT A 8 OUT OF 0/10 50 MCG OF FENTANYL GIVEN IVP AND 5 MG OXYCODONE GIVEN PO. PAIN ON REASSESSMENT IS A 4 TO 5 AND PATIENT IS ABLE TO SLEEP. VSS, TELEMETRY INTACT READING SR WITH RATES IN 70'S. CONTINENT OF BOWEL AND BLADDER CALLS FOR BEDPAN NEEDED. IV ANTIBIOTICS CONTINUE PICC TO GIORGIO INTACT WITH GOOD BLOOD RETURN AND FLUSHES WITHOUT DIFFICULTY. CONTINUE POC.
[2020-06-22] VITALS (7 sets, daily range): BP systolic 132–174; BP diastolic 61–100
[2020-06-22 04:37] LABS: HEMATOCRIT 36.9 % (37.0-47.0); HEMOGLOBIN 11.9 gm/dL (12.0-15.0); MCH 30.4 pg (26.0-34.0); MCHC 32.2 g/dL (28.0-37.0); MCV 94.4 fL (80.0-100.0); RBC 3.91 mil/uL (4.20-5.00); RDW 16.3 % (10.5-14.5); WBC 9.2 thou/uL (4.0-11.0)
[2020-06-22 04:49] LABS: CALCIUM 8.8 mg/dL (8.5-10.1); CREATININE 0.7 mg/dL (0.6-1.0); MAGNESIUM 1.9 mg/dL (1.8-2.4); POTASSIUM 3.8 mmol/L (3.5-5.1)
--- NOTE | 2020-06-22 14:27 | NUR ---
Patient is transferred to [facility] with personal belongings.
--- NOTE | 2020-06-22 18:14 | NUR ---
ASSUMED PT CARE AROUND 1430. PT ALERT X ORIENTED X4.ON ROOM AIR. IV RT UA/PICC LINE/SALINE LOCKED. METATARSAL AMPUTATION (LEFT) ON 06/20/20. LEFT FOOT SURGICAL DRESSING AND EVANGELINA WRAP IN PLACE.PAIN OF 6-7 NOTRD AND IS PARTIALLY CONTROLLED BY OXYCODONE.ABLE TO TURN SELF IN BED. USES BEDPAN SELF. FALL PRECAUTION IN PLACE. WILL CALL APPROPRIATELY CALL LIGHT IN REACH. WILL CONTINUE TO MONITOR.
--- NOTE | 2020-06-23 05:59 | NUR ---
UPON SHIFT REPORT, ASSISTED DAY NURSE WITH DRESSING CHANGE TO LEFT FOOT. BLOODY DRAINAGE SATURATED ORIGINAL DRESSING, SURGICAL SITE APPROXIMATED WELL WITH STITCHES, SLIGHT REDNESS NOTED AROUND SITE. UPON SHIFT ASSESSMENT, PT AOX4. PT REPORTS 10/10 PAIN IN LLE AND 7/10 PAIN IN RLE. PT RECEIVING PRN PO OXYCODONE AND PRN IV DILAUDID Q4HR WITH PRN IV FENTANYL Q2HR AVAILABLE. PT DENIES SOB WHILE ON ROOM AIR. PT TOLERATING PO INTAKE OF FLUIDS AND REGULAR DIET WITHOUT ISSUE. PT WITHOUT NAUSEA OR EMESIS. PT VOIDING PER BEDPAN, NONAMBULATING, RESTING IN BED THROUGHOUT SHIFT. PT NOTED TO SHIFT INDEPENDENTLY WHILE IN BED. SENSATION INTACT, CAPILLARY REFILL LESS THAN 3SEC IN ALL EXTREMITIES. PT ENCOURAGED TO NOTIFY STAFF FOR ALL NEEDS, CALL LIGHT WITHIN REACH, BED ALARM ON, BED LOCKED IN LOWEST POSITION, FREQUENT MONITORING WILL CONTINUE.
[2020-06-23 07:50] LABS: HEMATOCRIT 34.8 % (37.0-47.0); HEMOGLOBIN 11.4 gm/dL (12.0-15.0); MCH 30.6 pg (26.0-34.0); MCHC 32.8 g/dL (28.0-37.0); MCV 93.2 fL (80.0-100.0); RBC 3.73 mil/uL (4.20-5.00); RDW 15.8 % (10.5-14.5); WBC 7.6 thou/uL (4.0-11.0)
[2020-06-23 07:54] LABS: CALCIUM 8.9 mg/dL (8.5-10.1); CREATININE 0.6 mg/dL (0.6-1.0)
[2020-06-23 08:00] LABS: POTASSIUM 3.3 mmol/L (3.5-5.1)
[2020-06-23 08:12] VITALS: BP 135/65
--- NOTE | 2020-06-23 11:50 | NUR ---
Received awake on bed. Due medications given as prescribed, able to swallow meds w/o difficulty. On room air. Vital signs stable. On MS, not on telemetry; no complains and signs of chest pain, crushing sensation and heaviness. On regular diet- tolerating well; no nausea, no vomiting and no abdominal pain noted. Continent of bowel and bladder, able to use bedpan. With 1 lumen PICC line at R upper arm, saline locked- on IV antibiotics. S/P L metatarsal amputation, dressing C/D/I, advised to keep elevated. Complained of pain, due PRN pain meds given as prescribed; reporting consistently of no pain relief but patient asleep most of the time when assessed. Visited by relative this AM, update given. For 5N consult; SAROJ Cullen informed, will inform Dr Fairbanks for evaluation.
--- NOTE | 2020-06-23 14:05 | NUR ---
PT HAD TRANSMETARSAL AMP TUESDAY. PT NOW NWB ON BL LE. 5N ASSESSED PT AND INDICATED THAT SKILLED WOULD BE MORE APPROPRIATE AT THIS TIME. CM FOLLOWED UP WITH PT AND FRIEND KIMBERLY AT BEDSIDE THIS AM AND WC HAD MET WITH PT AND SPOKEN ABOUT [facility] THEY FOLLOW THERE AND PT AND HER FRIEND KIMBERLY WERE RECEPTIVE TO REFERRAL BEING SENT THERE FOR REVIEW FOR POSSIBLE ADMISSION. REFERRAL SENT. PT ON IV UNASYN AT THIS TIME. AWAITING ID TO INDICATED WHEN PT WOULD BE MEDICALLY STABLE TO DC TO SNF AT THIS TIME. LIAISON FROM [facility] TO VISIT PT THIS DAY. CM FOLLOWING REGARDING DC PLANNING.
[2020-06-23 16:37] VITALS: BP 141/72
[2020-06-23 19:20] VITALS: BP 140/59
--- NOTE | 2020-06-24 01:18 | NUR ---
ASSESSED AT START OF SHIFT. PT RESTING IN BED RATES PAIN 5/10 ON LOWER EXT. PO OXYCODONE GIVEN. LEFT FOOT DRESSING C/D/I. PT HAD A BM THIS SHIFT. VOIDS VIA BED BRITTON. IV ABX GIVEN. PT RESTING WELL. FALL PREC IN PLACE AND CALL LIGHT AT REACH WILL CONT TO MONITOR. POSSIBLE DC TOMORROW.
[2020-06-24 04:23] VITALS: BP 126/62
[2020-06-24 06:10] LABS: HEMATOCRIT 36.1 % (37.0-47.0); MCH 31.1 pg (26.0-34.0); MCHC 33.3 g/dL (28.0-37.0); MCV 93.4 fL (80.0-100.0); RBC 3.86 mil/uL (4.20-5.00); WBC 8.7 thou/uL (4.0-11.0)
[2020-06-24 06:34] LABS: CREATININE 0.6 mg/dL (0.6-1.0); MAGNESIUM 2.1 mg/dL (1.8-2.4); POTASSIUM 3.5 mmol/L (3.5-5.1)
[2020-06-24 08:49] VITALS: BP 148/70
[2020-06-24 09:29] VITALS: BP 148/70
--- NOTE | 2020-06-24 12:21 | HC ---
[facility] [place] [address] CONSULTATION Name: ROSANA NAVARRO Room #: 460-P ADM IN .R.#: [id number] Admission: 06/18/20 Attend Phys: Pancho Montilla MD Discharge: Date of : 51 Report #: [id number] THIS REPORT FOR: cc: Cullen Wagn James A. DO Stephens, Thad A. MD ~ DOC #: [id number] Jeanmarie Chaudhry MD DATE OF SERVICE: 06/20/2020 WOUND CARE CONSULTATION PERSONAL PHYSICIAN: Dr. Montilla. CHIEF COMPLAINT: Left foot gangrene with associated severe peripheral arterial disease. HISTORY OF PRESENT ILLNESS: This is a 64-year-old white female who I admitted from the wound clinic 2 days ago secondary to progressive ischemia of her left foot, status post amputation of toes 2 and 3. In the clinic, the patient had appearance of starting gangrene and necrotic changes to the left great toe and left fourth toe. The previous surgical amputation of toes 2 and 3 was 100% slough filled and the foot itself had erythema, warmth, and signs consistent with cellulitis. The patient also was having significant amount of pain. The patient was admitted to the hospital. The patient underwent angiogram and had drug-eluting angioplasty and drug-eluting stent placed in the tibioperoneal trunk on the left. The patient now this morning actually is status post transmetatarsal amputation on the left. The patient states she still is having pain; however, it is somewhat controlled with pain medicines. We have been asked to follow the patient for the wound at this time. PAST MEDICAL HISTORY: Significant for peripheral arterial disease, status post multiple stent placements with a recent history of the left second and third toe amputation for osteomyelitis. History of persistent tobaccoism despite multiple attempts to get her to stop, peripheral neuropathy, hypertension, status post ozgyx-egg-qoyh amputation on the right secondary to peripheral arterial disease. CURRENT MEDICATIONS: Multiple, I reviewed the patient's medication list. DRUG ALLERGIES: None. SOCIAL HISTORY: The patient still persistently smokes one-half to 1 pack of cigarettes daily, does not drink alcohol, lives independently. FAMILY HISTORY: Not pertinent to current medical condition. [address] [address] CONSULTATION Name: ROSANA NAVARRO Room #: 460-P [facility] IN ..#: [id number] Admission: 06/18/20 Attend Phys: Pancho Montilla MD Discharge: Date of : 51 Report #: [id number] Review of systems: CONSTITUTIONAL: The patient denies fevers or chills. NEUROLOGIC: The patient complains of numbness in her left lower extremity, which is burning in nature. Denies headache, weakness in arms or legs. EYES: No complaints. ENT: No complaints. CARDIOVASCULAR: The patient has chest pain, palpitations, peripheral edema. RESPIRATORY: The patient denies shortness of breath, cough, or wheezes. GASTROINTESTINAL: The patient denies nausea, vomiting, abdominal pain. GENITOURINARY: The patient denies urgency or frequency. MUSCULOSKELETAL: The patient has chronic pain in her left lower extremity. SKIN: The patient is now status post left transmetatarsal amputation. PHYSICAL EXAMINATION: VITAL SIGNS: Temperature 36.4, pulse 97, respirations 18, BP 166/65. GENERAL: This is a somewhat sleepy white female secondary to just returning from surgery and having sedation, but states she is in no acute distress at this time and has minimal pain. HEENT: Normocephalic, atraumatic. Mucous membranes are dry. Pupils are round. Sclerae white. NECK: Without JVD. LUNGS: Clear. HEART: Regular. ABDOMEN: Soft, nontender. EXTREMITIES: The patient has a kbmng-xhj-zvwa amputation on the right, which is intact. On the left lower extremity, the patient has a surgical dressing, which is clean, dry, and intact. NEUROLOGIC: Cranial nerves 2-12 grossly intact. Motor and sensory are grossly intact. LABORATORY VALUES: White count 10.7, hemoglobin 13.1. Sed rate 28, BUN 17, creatinine 0.8. C-reactive protein 8.1, albumin 3.1. Lower extremity angiogram was reviewed which once again showed the left tibioperoneal trunk atherectomy with a drug-eluting stent placement. IMPRESSION: 1. History of chronic nonhealing surgical wound, the left second and third toe amputation site, now status post transmetatarsal amputation. 2. History of severe peripheral arterial disease, status post drug-eluting stent placement in the left anterior tibioperoneal trunk. 3. Moderate protein-calorie malnutrition with albumin 3.1. 4. Chronic pain syndrome. 5. Generalized debility. PLAN: At this time, we will start Xeroform, ABD, Kerlix, and Delmar to the [facility] [address] [place] [address] CONSULTATION Name: ROSANA NAVARRO Room #: 460-P [facility] IN [place].#: [id number] Admission: 06/18/20 Attend Phys: Pancho Montilla MD Discharge: Date of : 51 Report #: [id number] incisional site on the left foot, changes daily. We will make sure we maximize the patient's oral protein supplementation for continued healing. Pain medicines have been controlled by the hospitalist and appeared to be appropriate at this time. We will utilize physical and occupational therapy for strengthening. We will continue all other current medications. I appreciate the ability to consult. MD JOSE Rivera/CIPRIANO <ELECTRONICALLY SIGNED> By: Jeanmarie Chaudhry MD 06/24/20 1221 1214 2324 Jeanmarie Chaudhry MD /emiliano
--- NOTE | 2020-06-24 12:29 | NUR ---
CARE TEAM INDICATED THAT PT IS MEDICALLY STABLE TO DC TO [facility] THIS DAY. AWAITING ORDERS. CM NOTIFIED PT AND FACILITY ALL ARE AWARE AND AGREEABLE. CHART COPY MADE. ORDERS TO BE FAXED ONCE COMPLETED.
--- NOTE | 2020-06-24 13:32 | NUR ---
ASSUMED PT CARE THIS AM. PT VSS, A&OX4. PATIENT IS ABLE TO MAKE NEEDS KNOWN. IV PATENT, MEDICATIONS INFUSING WITHOUT ISSUE AND PATIENT TAKING PO MEDS WELL. PATIENT IS ABLE TO REPOSITION SELF IN BED. COMPLAINS OF PAIN IN THE LEFT FOOT AND RIGHT PHANTOM LIMB PAIN WELL THAT RESPONDED WELL TO PAIN MEDS GIVEN. PATIENT REMAINS CONTINENT AND IS USING THE BEDPAN WHEN NEEDED. PATIENT IS ON ROOM AIR. FALL PRECAUTIONS ARE IN PLACE, CALL LIGHT WITHIN REACH.
[2020-06-24] MEDS ORDERED: UNASYN 3 GM VIAL3 G1 IV (13:41)
--- NOTE | 2020-06-24 14:07 | PATH ---
[facility] [address] [place] [address] PATHOLOGY RPT PROCEDURE Name: ROSANA NAVARRO Room #: 460-P ADM IN M.R.#: [id number] Admission: 06/18/20 Date of : 51 Discharge: Report #: [id number] Path Case #: [id number] [facility] Accession Number: [id number] . 01 Material submitted: . foot - LEFT TRANSMETATARSAL AMPUTATION. Modifiers: left . 01 Clinical history: . LEFT FOOT CELLULITIS, NON HEALING WOUNDS . 02 Diagnosis: Foot, left, transmetatarsal amputation: - Skin and subcutaneous tissue with ulceration, gangrenous necrosis and marked acute inflammation. - Acute osteomyelitis of all the toes examined. - Bone margins viable and unremarkable. (IUV:jairo; 06/24/2020) QMS 06/24/2020 1243 Local . 02 Electronically signed: . Ruth Trujillo MD, Pathologist NPI- [id number] . 01 Gross description: . The specimen is received in formalin, labeled "Rosana Navarro, left transmetatarsal amputation". Received is a left forefoot amputation measuring 9.7 x 8.7 x 2.9 cm in greatest dimensions. Toes 2 and 3 have previously been amputated. All 5 bone margins are smooth and concave in appearance, consistent with disarticulation. The nails on toes 1, 4, and 5 are pale amaral and thickened in appearance. The epidermal surface overlying toes 1 through 4 is light amaral to light brown and flaky to indurated in appearance. The remainder of the epidermal surface is pale amaral and flaky to sloughing in appearance. The bone and soft tissue margins are inked as follows: Toe 1-black, toe 2-blue, toe 3-yellow, toe 4-red, toe 5-orange. The specimen is submitted representatively as follows: . A1 horizontal cross-sections through toe 1, following decalcification A2 longitudinal cross-section through bone margin of toe 1, following decalcification A3 full-thickness longitudinal cross-section of proximal aspect of toe 2, following decalcification A4 full-thickness longitudinal cross-section of proximal aspect of toe 3, following decalcification A5 longitudinal cross-section through bone margin of toe 4, following decalcification A6 longitudinal cross-section through bone margin of toe 5, following [address] [address] PATHOLOGY RPT PROCEDURE Name: ROSANA NAVARRO Room #: 460-P ADM IN M.R.#: [id number] Admission: 06/18/20 Date of : 51 Discharge: Report #: [id number] Path Case #: [id number] decalcification. (CAA; 06/23/2020) QAC/QAC 06/23/2020 1055 Local . 02 Pathologist provided ICD-10: M86.172, L97.521 . 02 CPT . 512740, [id number] Specimen Comment: A courtesy copy of this report has been sent to [phone], [phone] Specimen Comment: [phone], Specimen Comment: Report sent to ,DR LANGFORD / DR YING Performed at: [address] [facility], [place] [id number] MD Qasim Cadet MD Phone: [phone] Performed at: [address] [id number] MD Ruth Trujillo MD Phone: [phone]
== END 2020-06-24 15:47 | DRG 271 ==
LOC: 4W 11:16 → 2N 11:16 → 4W 06-22 14:17
PROVIDERS: Internal Medicine; Nurse Practitioner; ADMIT Hospitalist; ATTEND Hospitalist
DX: I73.89 Other specified peripheral vascular diseases (principal); E44.0 Moderate protein-calorie malnutrition; L97.329 Non-pressure chronic ulcer of left ankle with unspecified severity; M86.8X7 Other osteomyelitis, ankle and foot; L03.032 Cellulitis of left toe; Z20.822 Contact with and (suspected) exposure to COVID-19; G62.9 Polyneuropathy, unspecified; R53.81 Other malaise; I10 Essential (primary) hypertension; G89.4 Chronic pain syndrome; F17.210 Nicotine dependence, cigarettes, uncomplicated; Z71.6 Tobacco abuse counseling; Z68.31 Body mass index [BMI] 31.0-31.9, adult; Z89.511 Acquired absence of right leg below knee
CPT/HCPCS: 10047; 10797; 27000; 50010; 50101; 50386; 50951; 56527; 56528; 57091; 57178; 62110; 62900; 70005

== ENCOUNTER → 2020-06-18 | Outpatient (CLI) | payer OTHER ==
[~2020-06-18] MED LIST changes: +UNASYN 3 GM VIAL3 G1 IV
== END ==
LOC: HYPER 07:59
PROVIDERS: ATTEND Emergency Medicine
DX: T81.31XD Disruption of external operation (surgical) wound, not elsewhere classified, subsequent encounter (principal); I70.238 Atherosclerosis of native arteries of right leg with ulceration of other part of lower leg; L97.812 Non-pressure chronic ulcer of other part of right lower leg with fat layer exposed; I70.245 Atherosclerosis of native arteries of left leg with ulceration of other part of foot; L97.522 Non-pressure chronic ulcer of other part of left foot with fat layer exposed; E44.1 Mild protein-calorie malnutrition; I10 Essential (primary) hypertension; I73.89 Other specified peripheral vascular diseases; F17.200 Nicotine dependence, unspecified, uncomplicated; Z89.511 Acquired absence of right leg below knee; Y83.8 Other surgical procedures as the cause of abnormal reaction of the patient, or of later complication, without mention of misadventure at the time of the procedure

== ENCOUNTER → 2020-07-31 | Outpatient (CLI) | payer OTHER ==
[~2020-07-31] MED LIST changes: +UNASYN 3 GM VIAL3 G1 IV
== END ==
LOC: HYPER 09:10
PROVIDERS: ATTEND Emergency Medicine
DX: T87.81 Dehiscence of amputation stump (principal); I70.245 Atherosclerosis of native arteries of left leg with ulceration of other part of foot; L97.522 Non-pressure chronic ulcer of other part of left foot with fat layer exposed; I10 Essential (primary) hypertension; I73.89 Other specified peripheral vascular diseases; F44.1 Dissociative fugue; F17.200 Nicotine dependence, unspecified, uncomplicated; Z89.511 Acquired absence of right leg below knee; Z89.422 Acquired absence of other left toe(s); Y92.238 Other place in hospital as the place of occurrence of the external cause; Y83.5 Amputation of limb(s) as the cause of abnormal reaction of the patient, or of later complication, without mention of misadventure at the time of the procedure

== ENCOUNTER → 2020-08-14 | Outpatient (CLI) | payer OTHER | LOC: HYPER 07:53 | PROVIDERS: ATTEND Emergency Medicine | DX: T87.81 Dehiscence of amputation stump (principal); L97.522 Non-pressure chronic ulcer of other part of left foot with fat layer exposed; I10 Essential (primary) hypertension; I73.89 Other specified peripheral vascular diseases; F44.1 Dissociative fugue; F17.200 Nicotine dependence, unspecified, uncomplicated; Z89.511 Acquired absence of right leg below knee; Y83.5 Amputation of limb(s) as the cause of abnormal reaction of the patient, or of later complication, without mention of misadventure at the time of the procedure ==

== ENCOUNTER → 2020-08-28 | Outpatient (CLI) | payer OTHER | LOC: HYPER 08:03 | PROVIDERS: ATTEND Emergency Medicine | DX: T87.89 Other complications of amputation stump (principal); I70.245 Atherosclerosis of native arteries of left leg with ulceration of other part of foot; L97.521 Non-pressure chronic ulcer of other part of left foot limited to breakdown of skin; E44.1 Mild protein-calorie malnutrition; I10 Essential (primary) hypertension; F17.200 Nicotine dependence, unspecified, uncomplicated; Z68.32 Body mass index [BMI] 32.0-32.9, adult; Z89.511 Acquired absence of right leg below knee; Z79.82 Long term (current) use of aspirin; Z79.899 Other long term (current) drug therapy; Y83.5 Amputation of limb(s) as the cause of abnormal reaction of the patient, or of later complication, without mention of misadventure at the time of the procedure ==

== ENCOUNTER → 2020-09-02 | Outpatient (CLI) | payer OTHER | LOC: SJCVCIMAG 09:23 | PROVIDERS: ATTEND Nuclear Medicine Nuclear Cardiology | DX: I70.202 Unspecified atherosclerosis of native arteries of extremities, left leg (principal); I96 Gangrene, not elsewhere classified; I77.9 Disorder of arteries and arterioles, unspecified; I10 Essential (primary) hypertension; F17.200 Nicotine dependence, unspecified, uncomplicated; F17.210 Nicotine dependence, cigarettes, uncomplicated; Z79.82 Long term (current) use of aspirin; Z79.899 Other long term (current) drug therapy ==

== ENCOUNTER → 2020-09-24 | Outpatient (CLI) | payer OTHER | LOC: HYPER 07:57 | PROVIDERS: ATTEND Emergency Medicine | DX: T81.89XD Other complications of procedures, not elsewhere classified, subsequent encounter (principal); I73.89 Other specified peripheral vascular diseases; E44.1 Mild protein-calorie malnutrition; I10 Essential (primary) hypertension; F17.290 Nicotine dependence, other tobacco product, uncomplicated; Z68.32 Body mass index [BMI] 32.0-32.9, adult; Z79.82 Long term (current) use of aspirin; Z79.899 Other long term (current) drug therapy; Z89.511 Acquired absence of right leg below knee; Z89.422 Acquired absence of other left toe(s); Y83.8 Other surgical procedures as the cause of abnormal reaction of the patient, or of later complication, without mention of misadventure at the time of the procedure ==

== ENCOUNTER → 2020-11-19 | Outpatient (CLI) | payer OTHER | LOC: SJCVCIMAG 09:51 | PROVIDERS: ATTEND Internal Medicine | DX: R01.1 Cardiac murmur, unspecified (principal); I73.9 Peripheral vascular disease, unspecified ==

== ENCOUNTER → 2021-03-04 | Outpatient (CLI) | payer OTHER | LOC: SJCVCIMAG 13:24 | PROVIDERS: ATTEND Nuclear Medicine Nuclear Cardiology | DX: I70.202 Unspecified atherosclerosis of native arteries of extremities, left leg (principal); I77.9 Disorder of arteries and arterioles, unspecified; I10 Essential (primary) hypertension; E78.00 Pure hypercholesterolemia, unspecified; I65.29 Occlusion and stenosis of unspecified carotid artery; E78.5 Hyperlipidemia, unspecified; I08.3 Combined rheumatic disorders of mitral, aortic and tricuspid valves; G62.9 Polyneuropathy, unspecified; F17.210 Nicotine dependence, cigarettes, uncomplicated; Z89.511 Acquired absence of right leg below knee; Z79.82 Long term (current) use of aspirin; Z79.899 Other long term (current) drug therapy; Z82.49 Family history of ischemic heart disease and other diseases of the circulatory system ==